=== PATIENT | female | born 1945 | race Caucasian/White ===

== ENCOUNTER 2025-06-01 13:14 | Outpatient (AMB) | payer MEDICARE, SELFPAY ==
--- NOTE | 2025-06-01 13:17 | A.OFFPC_ITS ---
Vital Signs 06/01/25 13:27 Weight 113 lb 6 oz BP 120/60 Blood Pressure Location Rt brachial Position Sitting Respiration 16 Pulse 86 Pulse Source Pulse Oximeter Temp 97.6 F Temp Source Oral Pulse Oximetry (%) 98 Oxygen Delivery Method Room Air Intake Visit Reasons: medication? Intake Note: medication Pharmaceutical Physician Required: No Medication List - Last Reconciled 06/01/25 by Hannah Baldwin MD alprazolam 0.25 mg PO DAILY PRN amitriptyline 25 mg PO BEDTIME amlodipine 5 mg PO DAILY famotidine 20 mg PO BID PRN fluoxetine 20 mg PO DAILY Tobacco use date assessed: 06/01/25 Fall risk assessment: No Falls in past year Last assessed Fall Risk: 06/01/25 Dental Screening Dental Screen Date: 06/01/25 Did you have a dental visit in the last 12 months?: Yes Did you have a dental problem in the last 6 months where you did not have access to dental care?: No Was dental information given to patient?: Patient has dentist HPI HPI Comments History of Present Illness Details The patient is a a 79 year old female with a past medical history of hypertension, LBBB, anxiety, GERD presenting to [facility]. Transferring from [facility] (she was there for a year prior to which she was living in [place]. CV: On amlodipine 5mg daily. Blood pressure is well controlled. Sent for pharmacologic stress test. Will be seeing Dr Kinsey in June. Endocrine: Follows with endocrinology at [facility] for osteoporosis. History of goiter. Sees twice annually GI: History of celiac. History of PUD-duodenal ulcer-[facility]. Can have heartburn and reflux. Says she is not supposed to be on PPI. Famotidine says not super helpful Heme/Onc: Follows with [facility] Dr Bean. History of anorectal cancer. Had chemo & radiation Sees [facility]-h/o cataract-october last year and upcoming November 2025 Tdap 05/31/2025 RSV 05/31/2025 Pnuemonia 03/31/25 Flu & COVID 04/17/2025 Mammo 2024-following with [facility] Colonoscopy- August 2024 ROS see HPI PHYSICAL EXAM: GENERAL: Alert and oriented x 3. NAD EYES: EOMI. Anicteric. HENT: Moist mucous membranes. No scleral icterus. No cervical lymphadenopathy. LUNGS: Clear to auscultation bilaterally. CARDIOVASCULAR: Regular rate and rhythm. No murmur. No JVD. ABDOMEN: Soft, non-tender +bs EXTREMITIES: No edema. Non-tender. SKIN: No rashes or lesions. Warm. NEUROLOGIC: No focal neurological deficits. CN II-XII grossly intact PSYCHIATRIC: Cooperative. Appropriate mood and affect PFSH Family History (Updated 06/01/25 @ 13:26 by Kai Plata MA) Other FH: mental illness Substance abuse Social History (Updated 06/01/25 @ 13:27 by Kai Plata MA) Housing: House Alcohol intake: current Comment: couple of drinks a week Patient Tobacco Use Status: Never used Tobacco e-Cigarette/Vaping Use: Never Used service: No Current occupational status: retired Current occupational exposures/hazards: No Cognitive needs: No Hearing needs: Yes Vision needs: Yes Questionnaire PHQ-9 Over the last 2 weeks, how often have you been bothered by any of the following problems? 1. Little interest or pleasure in doing things: more than half the days 2. Feeling down, depressed, or hopeless: more than half the days 3. Trouble falling or staying asleep, or sleeping too much: several days 4. Feeling tired or having little energy: several days 5. Poor appetite or overeating: several days 6. Feeling bad about yourself - or that you are a failure or have let yourself or your family down: more than half the days 7. Trouble concentrating on things, such as reading the newspaper or watching television: more than half the days 8. Moving or speaking so slowly that other people could have noticed. Or the opposite - being so fidgety or restless that you have been moving around a lot more than usual: more than half the days 9. Thoughts that you would be better off or of hurting yourself in some way: several days Total score: 14 Depression Screening Interpretation: Positive Depression Screening Follow-up: Existing condition and Follow-up Visit Requested Depression Screening Done: Yes 82598 - PHQ-9 Billing: Yes Source: Developed by Drs. Ash Hoyos, Leonila Hernandez, Chris Zayas and colleagues, with an educational christoph from [employer]. Thrive Questionnaire Date Thrive assessed: 05/29/25 I am a: Patient What is your living situation today?: I have a steady place to live Within the past 12 months, did the food you bought not last and you didn't have the money to get more?: Never true Within the past 12 months, did you worry whether your food would run out before you got money to buy more?: Never true Do you have trouble paying for medicines?: No Do you have trouble getting transportation to medical appointments?: No Do you have trouble paying your heating and electricity bill?: No Do you have trouble taking care of your child, family member or friend?: No Do you have trouble with day-to-day activities such as bathing, preparing meals, shopping, managing finances, etc.?: No Are you currently unemployed and looking for a job?: No Are you interested in more education?: Yes Please select the resources that you would like help with: None Currently or been in a relationship where the following occur: No concerns reported THRIVE Score: 0 AUDIT C Alcohol Use Questionnaire (AUDIT-C) 1. How often do you have a drink containing alcohol?: 2-4 times a month 2. How many drinks containing alcohol do you have on a typical day when you are drinking?: 1 or 2 3. How often do you have six or more drinks on one occasion?: Never Total Score: 2 MAXI-7 AMB Questionnaire MAXI-7 Date MAXI - 7 assessed: 06/01/25 Feeling nervous, anxious, or on edge: 2 = More than half the days Not being able to stop or control worryin = More than half the days Worrying too much about different things: 2 = More than half the days Trouble relaxin = More than half the days Being so restless that it is hard to sit still: 2 = More than half the days Becoming easily annoyed or irritable: 1 = Several days Feeling afraid as if something awful might happen: 2 = More than half the days Total MAXI-7 score (0-4 normal; 5-9 mild; 10-14 moderate; 15-21 severe): 13 Source: Developed by Drs. Ash Hoyos, Leonila Hernandez, Chris Zayas and colleagues, with an educational christoph from [employer]. MAXI-7 Assessment Billing MAXI-7 Assessment Tool: MAXI-7 Assessment 40473 Physical exam (Primary Care) Vital Signs: Last Vital Signs Temp 97.6 F 06/01/25 13:27 Pulse 86 06/01/25 13:27 Resp 16 06/01/25 13:27 BP 120/60 06/01/25 13:27 Pulse Ox 98 06/01/25 13:27 Oxygen Delivery Method Room Air 06/01/25 13:27 Tobacco/Smoking Status: Tobacco use Status Tobacco use date assessed 06/01/25 06/01/25 13:30 Patient Tobacco Use Status Never used Tobacco 06/01/25 13:30 e-Cigarette/Vaping Use Never Used 06/01/25 13:30 PHQ-9: PHQ-9 Score PHQ-9: Total score 14 06/01/25 13:49 Depression Screening Interpretation: Positive Depression Screening Follow-up: Existing condition and Follow-up Visit Requested Thrive Assessment: Date of Thrive Assessment Date Thrive assessed 05/29/25 06/01/25 13:19 Currently or been in a relationship where the following occur: No concerns reported Coding Level of Care Code New Pt Level 5 (70905) Diagnoses Moderate episode of recurrent major depressive disorder F33.1 Major depression recurrence: recurrent Active/Remission status: currently active Major depression episode severity: moderate Primary hypertension I10 Hypertension type: primary hypertension History of rectal or anal cancer Z85.048 Osteoporosis, unspecified osteoporosis type, unspecified pathological fracture presence M81.0 Osteoporosis type: unspecified Presence of current pathological fracture: unspecified Additional Codes MAXI-7 Assessment Billing - MAXI-7 Assessment Tool: MAXI-7 Assessment 21313 ([id number]) PHQ-9 - 48608 - PHQ-9 Billing: Yes ([id number]) Time Spent (min) 63 Assessment & Plan Assessment & Plan (1) Major depressive disorder: Code(s): F32.9 - Major depressive disorder, single episode, unspecified Category: Medical Qualifiers: Major depression recurrence: recurrent Active/Remission status: currently active Major depression episode severity: moderate Qualified Code(s): F33.1 - Major depressive disorder, recurrent, moderate (2) Hypertension: Code(s): I10 - Essential (primary) hypertension Category: Medical Qualifiers: Hypertension type: primary hypertension Qualified Code(s): I10 - Essential (primary) hypertension (3) History of rectal or anal cancer: Code(s): Z85.048 - Personal history of other malignant neoplasm of rectum, rectosigmoid junction, and anus Category: Medical (4) Osteoporosis: Code(s): M81.0 - Age-related osteoporosis without current pathological fracture Category: Medical Qualifiers: Osteoporosis type: unspecified Presence of current pathological fracture: unspecified Qualified Code(s): M81.0 - Age-related osteoporosis without current pathological fracture Plan 79 year old female presenting to [facility] care Past medical surgical social reviewed Depression, anxiety-close follow up. She recently increased her prozac HTN-c/w amlodipine. She can trial off if she is monitoring BP at home Orders: Orders Complete Blood Count Auto Diff 06/01/25 E04.9 - Nontoxic goiter, unspecified, F32.9 - Major depressive disorder, single episode, unspecified, F41.9 - Anxiety disorder, unspecified, I10 - Essential (primary) hypertension, I44.7 - Left bundle-branch block, unspecified, J30.2 - Other seasonal allergic rhinitis, M81.0 - Age-related osteoporosis without current pathological fracture, Z65.8 - Other specified problems related to psychosocial circumstances, Z85.048 - Personal history of other malignant neoplasm of rectum, rectosigmoid junction, and anus Comprehensive Met. Panel 06/01/25 E04.9 - Nontoxic goiter, unspecified, F32.9 - Major depressive disorder, single episode, unspecified, F41.9 - Anxiety disorder, unspecified, I10 - Essential (primary) hypertension, I44.7 - Left bundle-branch block, unspecified, J30.2 - Other seasonal allergic rhinitis, M81.0 - Age-related osteoporosis without current pathological fracture, Z65.8 - Other specified problems related to psychosocial circumstances, Z85.048 - Personal history of other malignant neoplasm of rectum, rectosigmoid junction, and anus Hemoglobin A1c 06/01/25 E04.9 - Nontoxic goiter, unspecified, F32.9 - Major depressive disorder, single episode, unspecified, F41.9 - Anxiety disorder, unspecified, I10 - Essential (primary) hypertension, I44.7 - Left bundle-branch block, unspecified, J30.2 - Other seasonal allergic rhinitis, M81.0 - Age- related osteoporosis without current pathological fracture, Z65.8 - Other specified problems related to psychosocial circumstances, Z85.048 - Personal history of other malignant neoplasm of rectum, rectosigmoid junction, and anus SHAE Reflex Titer and Pattern 06/01/25 E04.9 - Nontoxic goiter, unspecified, F32.9 - Major depressive disorder, single episode, unspecified, F41.9 - Anxiety disorder, unspecified, I10 - Essential (primary) hypertension, I44.7 - Left bundle-branch block, unspecified, J30.2 - Other seasonal allergic rhinitis, M 81.0 - Age-related osteoporosis without current pathological fracture, Z65.8 - Other specified problems related to psychosocial circumstances, Z85.048 - Personal history of other malignant neoplasm of rectum, rectosigmoid junction, and anus Lipid Panel 06/01/25 E04.9 - Nontoxic goiter, unspecified, F32.9 - Major depressive disorder, single episode, unspecified, F41.9 - Anxiety disorder, unspecified, I10 - Essential (primary) hypertension, I44.7 - Left bundle-branch block, unspecified, J30.2 - Other seasonal allergic rhinitis, M81.0 - Age- related osteoporosis without current pathological fracture, Z65.8 - Other specified problems related to psychosocial circumstances, Z85.048 - Personal history of other malignant neoplasm of rectum, rectosigmoid junction, and anus TSH reflex Free T4 06/01/25 E04.9 - Nontoxic goiter, unspecified, F32.9 - Major depressive disorder, single episode, unspecified, F41.9 - Anxiety disorder, unspecified, I10 - Essential (primary) hypertension, I44.7 - Left bundle-branch block, unspecified, J30.2 - Other seasonal allergic rhinitis, M81.0 - Age- related osteoporosis without current pathological fracture, Z65.8 - Other specified problems related to psychosocial circumstances, Z85.048 - Personal history of other malignant neoplasm of rectum, rectosigmoid junction, and anus Vitamin B12 and Folate 06/01/25 E04.9 - Nontoxic goiter, unspecified, F32.9 - Major depressive disorder, single episode, unspecified, F41.9 - Anxiety disorder, unspecified, I10 - Essential (primary) hypertension, I44.7 - Left bundle-branch block, unspecified, J30.2 - Other seasonal allergic rhinitis, M81.0 - Age-related osteoporosis without current pathological fracture, Z65.8 - Other specified problems related to psychosocial circumstances, Z85.048 - Personal history of other malignant neoplasm of rectum, rectosigmoid junction, and anus Medications: New melatonin 10 mg PO BEDTIME PRN 90 caps 0RF sleep docusate sodium (Colace) 100 mg PO DAILY cyanocobalamin (vitamin B-12) 5,000 mcg PO DAILY cholecalciferol (vitamin D3) 125 mcg PO .QOD 90 caps 0RF biotin mcg PO
[2025-06-01 13:27] VITALS: BP 120/60; PULSE 86; RESP 16; TEMP 36.4; O2SAT 98
--- OUTSIDE RECORDS SUMMARY | 2025-06-01 15:16 | XMS_ITS | Encounter Summary ---
Author Organization [facility] Address [address] [id number] Care Team Providers Care Child'S Nurse Name Role Phone Joi Yeung MD Primary Care Provider [phone] Chantal Ocasio MD Primary Care Provider Unavailab le Unknown Pcp, Non [facility] Primary Care Provider Unava ilable Fatou Bruner MD Primary Care Provider [phone] Encounter Details Date Type Department Care Team (Late st Contact Info) Description 07/22/2009 Orders Only [facility] [address] [place] [address] Joi Yeung MD [address] [place] [id number] Social History Tobacco Use Types Packs/Day Years Used Date Smoking Tobacco: Former Cigarettes 0.5 12 0 08/09/1962 - 08/09/1974 Comments:quit at age 29 Alcohol Use Standard Drinks/Week Comments Yes 0 (1 standard drink = 0.6 oz pur e alcohol) occasional Comments No Sex and Gender Information Value Date Recorded Sex Assigned at Not on file Legal Sex Female 1:20 AM EDT Gender Identity Not on file Sexual Orientation Not on file 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 Procedure Name Priority Date/Time Associated Diagnosis Comments GAMMA GLUTAMYLTRANSFERASE (GGT), SERUM Routine 07/22/2009 Nonspecific abnormal results of liver function study HEPATIC FUNCTION PANEL Routine 07/22/2009 Hepatitis B infection documented in this encounter Results * Due to [place] the [place] law, this organization might not be sharing negative HIV tests. * HEPATIC FUNCTION PANEL (07/22/2009) Total Protein 6.9 6.2 - 8.3 G/DL [facility] ALBUMIN 4.2 3.2 - 4.6 G/DL [facility] GLOBULIN 2.7 2.2 - 3.9 G/DL [facility] ALBUMIN/GLOBULIN RATIO 1.6 1.0 - 2.1 [facility] BILIRUBIN TOTAL 1.2 0.2 - 1.2 MG/DL [facility] BILIRUBIN DIRECT 0.2 0 - 0.3 MG/DL [facility] ALKALINE PHOSPHATASE 80 33 - 130 U/L [facility] AST (SGOT) 22 10 - 35 U/L [facility] ALT (SGPT) 18 6 - 40 U/L [facility] 07/22/2009 07/22/2009 5:5 2 PM EST us Joi Yeung MD LABORATORY Final Result Performing Organization Address [facility] Co de Phone Number [facility] [address] [place] [address] * (ABNORMAL) GAMMA GLUTAMYLTRANSFERASE (GGT), SERUM (07/22/2009) GGT (GAMMA GLUTAMYL TRANSFERASE) 69(H) 3 - 65 U/L [facility] 07/22/2009 07/22/2009 5:5 2 PM EST us Joi Yeung MD LABORATORY Final Result Performing Organization Address City/[facility] Co de Phone Number [facility] [address] [place] [address] documented in this encounter Visit Diagnoses Diagnosis Nonspecific abnormal results of liver function study Hepatitis B infection Viral hepatitis B without mention of hepatic coma, acute or unspecified, without mention of hepatitis delta documented in this encounter Care Teams Child'S Nurse Relationship Specialty Start Date End Date Joi Yeung MD [address] [place] [address] PCP - General 10/31/05 09/01/11 Chantal Ocasio MD PCP - General 09/02/11 03/20/13 Unknown Pcp, Non [facility] [place] - General 03/21/13 05/13/17 Fatou Bruner MD [facility] [address] [place] [address] PCP - General Family Medicine 06/12/19 documented as of this encounter
--- OUTSIDE RECORDS SUMMARY | 2025-06-01 15:16 | XMS_ITS | Encounter Summary ---
Author Organization [facility] Address [address] [place] [address] Care Team Providers Care Chartered Financial Analyst Name Role Phone Joi Yeung MD Primary Care Provider [phone] Chantal Ocasio MD Primary Care Provider Unavailab le Unknown Pcp, Non [facility]mg Primary Care Provider Unava ilable Fatou Bruner MD Primary Care Provider [phone] Encounter Details Date Type Department Care Team (Late st Contact Info) Description 03/31/2010 Orders Only [facility] [address] [place] [address] Sissy Kenyon MD [address] [place] [address] [id number] Social History Tobacco Use Types Packs/Day Years [...] cindi e documented as of this encounter Progress Notes * Sissy Kenyon MD - 04/02/2010 5:50 AM EDTQuick Note: Ed with Macrobid documented in this encounter Plan of Treatment Not on file documented as of this encounter Procedures * Due to [place] [employer] law, this organization might not be sharing negative HIV tests. Procedure Name Priority Date/Time Associated Diagnosis Comments URINALYSIS, DIP ONLY ( SITE STAT ONLY) STAT (All results called to provider) 03/31/2010 11:55 AM EDT UTI (urinary tract infection) CULTURE, URINE Routine 03/31/2010 UTI (urinary tract infection) documented in this encounter Results * Due to [place] state law, this organization might not be sharing negative HIV tests. * URINALYSIS, DIP ONLY ( SITE STAT ONLY) (03/31/2010 11:55 AM EDT) COLOR (URINE) straw [facility] (CLIA# [id number]) APPEARANCE (URINE) clear [facility] (CLIA# [id number]) SPECIFIC GRAVITY 1.005 1.001 - 1.035 [facility] (CL[facility]# [id number]) PH (URINE) 6.0 5.0 - 8.0 [facility] (CLIA# [id number]) PROTEIN (URINE) negative Neg - Neg [facility] (CLIA# [id number]) GLUCOSE (URINE) negative Neg - Neg [facility] (CL[facility]# [id number]) Ketones (Urine) negative Neg - Neg [facility] (CLIA# [id number]) BILIRUBIN (URINE) negative Neg - Neg [facility] (CLIA# [id number]) BLOOD (URINE) negative Neg - Neg [facility] (CLIA# [id number]) WBC (URINE) negative Neg - Neg [facility] (CLIA# [id number]) NITRITE (URINE) negative Neg - Neg [facility] (CLIA# [id number]) Urine specimen (specimen) 03/31/2010 11:55 AM EDT Impressions [facility] (CLIA# [id number]) - 03/31/2010 11:56 AM EDT Culture already ordered per provider. Sissy Kenyon MD LAB SAME DAY RESULT Final Resul t Performing Organization Address City/[facility]/ZIP Co de Phone Number [facility] (CLIA# [id number]) [address] [place] [address] * (ABNORMAL) CULTURE, URINE (03/31/2010) URINE CULTURE CLEAN VOID SEE TEXT(A) [facility] Comment: SOURCE: URINE 1,000-10,000 CFU/ML GRAM NEGATIVE RODS 03/31/2010 03/31/2010 8:4 2 PM EDT Sissy Kenyon MD LABORATORY Final Result Performing Organization Address City/[facility] de Phone Number [facility] [address] [place] [address] documented in this encounter Visit Diagnoses Diagnosis UTI (urinary tract infection) Urinary tract infection, site not specified documented in this encounter Care Teams Chartered Financial Analyst Relationship Specialty Start Date End Date Joi Yeung MD [address] [place] [address] PCP - General 10/31/05 09/01/11 Chantal Ocasio MD PCP - General 09/02/11 03/20/13 Unknown Pcp, Non [facility] PCP - General 03/21/13 05/13/17 Fatou Bruner MD [address] [place] [address] PCP - General Family Medicine 06/12/19 documented as of this encounter
--- OUTSIDE RECORDS SUMMARY | 2025-06-01 15:16 | XMS_ITS | Encounter Summary ---
Author Organization [facility] Address [address] [place] [address] Phone Care Team Providers Care Account Development Executive Name Role Phone Martha Grissom SYSTEMS TEST TECHNICIAN Primary Care Provider [phone] Rod Forbes MD Unavailable [phone] Bell Gil MOLD TOOLING TECHNICIAN Unavailable Yas Tejeda SYSTEMS TEST TECHNICIAN Unavailable [phone] Srikanth Landa MD Primary Care Provider [phone] Encounter Details Date Type Department Care Team (Late st Contact Info) Description 02/14/2024 Procedure Pass [facility], Ct Scan - [address] [address] Social History Tobacco Use Types Packs/Day Years Used Date Smoking Tobacco: Former Cigarettes Smokeless Tobacco: Never Comments:Age 30 quit Alcohol Use Standard Drinks/Week Comments Yes 1 (1 standard drink = 0.6 oz pur e alcohol) Education Answer Date Recorded Are you interested in more education? Not on cindi e 12/05/2022 Are you concerned about learning? Not on file 12/05/2022 No 12/05/2022 No 12/05/2022 Digital Access Answer Date Recorded No 01/05/2023 No 01/05/2023 Reliable internet access at home? Not on file 01/05/2023 Device with a working camera? Not on file Comments No Sex and Gender Information Value Date Recorded Sex Assigned at Female 06/18/2022 11:18 AM EST Legal Sex Female 8:51 AM EDT Gender Identity Female 06/18/2022 11:18 AM EST Sexual Orientation Straight 06/18/2022 11 :18 AM EST documented as of this encounter Plan of Treatment Upcoming Encounters Date Type Department Care Team (Late st Contact Info) Description 03/05/2025 Procedure Pass [address] [address] 03/05/2025 Procedure Pass [address] [address] 07/24/2025 1:45 PM EST Office Visit [facility] [address] [place] [address] Sarah Bean MD [address] [place] [address], [address] [place] [address] 08/30/2025 2:30 PM EST Appointment [address] [address] Rod Forbes MD [address] [place] [address] 09/06/2025 1:40 PM EST Appointment [facility] [address] [place] [address] Rod Forbes MD [address] [place] [address] 09/06/2025 2:40 PM EST Office Visit [facility] at [address] [address] Rod Forbes MD [address] [place] [address] documented as of this encounter Visit Diagnoses Not on filedocumented in this encounter Care Teams Account Development Executive Relationship Specialty Start Date End Date Martha Grissom NP [address] [place] [address] PCP - General 04/24/22 06/12/24 Srikanth Landa MD [address] [place], [place] [address] PCP - General Family Medicine 06/13/24 Rod Forbes MD [address] [place] [address] [email or web address] Primary Oncologist Medical Oncology 04/24/22 Bell Gil CNP [address] [place] [address] Nurse Practitioner Medical Oncology 05/18/22 Yas Tejeda NP [address] [place] [address] [email or web address] Nurse Practitioner Medical Oncology 07/09/22 02/27/25 documented as of this encounter Additional Source Comments The information contained in this document represents components of the legal health record. It is not the complete legal health record.[facility]
--- OUTSIDE RECORDS SUMMARY | 2025-06-01 15:16 | XMS_ITS | Encounter Summary ---
Author Organization [facility] Address [address] [place] [address] Care Team Providers Care Lathe Turner Name Role Phone Joi Yeung MD Primary Care Provider [phone] Chantal Ocasio MD Primary Care Provider Unavailab le Unknown Pcp, Non [facility] Primary Care Provider Unava ilable Fatou Bruner MD Primary Care Provider [phone] Encounter Details Date Type Department Care Team (Late st Contact Info) Description 09/02/[address] [facility] [address] [place] [address] Joi Yeung MD [address] [place] [address] Social History Tobacco Use Types Packs/Day Years [...] on file Sexual Orientation Not on file documented as of this encounter Plan of Treatment Pending Results Name Type Priority Associated Diagnoses Date /Time EKG (ELECTROCARDIOGRAM ) cardiovascular Routine Arrhythmia 09/02/2007 12:56 PM EST documented as of this encounter Procedures * Due to [place] state law, this organization might not be sharing negative HIV tests. Procedure Name Priority Date/Time Associated Diagnosis Comments EKG-TO BE READ & BILLED BY ADULT OR PEDIATRIC CARDIOLOGY Routine 09/02/2007 12:56 PM EST Arrhythmia documented in this encounter Visit Diagnoses Diagnosis Arrhythmia Cardiac dysrhythmia, unspecified documented in this encounter Care Teams Lathe Turner Relationship Specialty Start Date End Date Joi Yeung MD [address] [place] [address] PCP - General 10/31/05 09/01/11 Chantal Ocasio MD PCP - General 09/02/11 03/20/13 Unknown Pcp, Non [facility] PCP - General 03/21/13 05/13/17 Fatou Bruner MD [address] [address] PCP - General Family Medicine 06/12/19 documented as of this encounter
--- OUTSIDE RECORDS SUMMARY | 2025-06-01 15:16 | XMS_ITS | Encounter Summary ---
Author Organization [facility] Address [address] [place] [id number] Care Team Providers Care Jumpbasting Lining Baster Name Role Phone Joi Yeung MD Primary Care Provider [phone] Chantal Ocasio MD Primary Care Provider Unavailab le Unknown Pcp, Non [facility] Primary Care Provider Unava ilable Fatou Bruner MD Primary Care Provider [phone] Encounter Details Date Type Department Care Team (Late st Contact Info) Description 06/13/2010 Orders Only [facility] [address] [place] [address] Joi Yeung MD [address] [place] [address] Social History Tobacco Use Types Packs/Day Years [...] as of this encounter Progress Notes * Lesia Morgan - 06/16/2010 8:51 AM Shweta Note: . documented in this encounter Plan of Treatment Not on file documented as of this encounter Procedures * Due to [place] state law, this organization might not be sharing negative HIV tests. Procedure Name Priority Date/Time Associated Diagnosis Comments URINALYSIS, DIP ONLY ( SITE STAT ONLY) STAT (All results called to provider) 06/13/2010 12:15 PM EDT Dysuria CULTURE, URINE Routine 06/13/2010 Dysuria URINALYSIS,MICROS COPIC ONLY Routine 06/13/2010 Dysuria documented in this encounter Results * Due to [place] state law, this organization might not be sharing negative HIV tests. * (ABNORMAL) URINALYSIS, DIP ONLY ( SITE STAT ONLY) (06/13/2010 12:15 PM EDT) COLOR (URINE) Brown [facility] (CLIA# [id number]) Comment:Abnormal APPEARANCE (URINE) Cloudy [facility] (CLIA# [id number]) Comment:Abnormal SPECIFIC GRAVITY 1.020 1.001 - 1.035 [facility] (CLIA# [id number]) PH (URINE) 6.5 5.0 - 8.0 [facility] (CLIA# [id number]) PROTEIN (URINE) 3+ Neg - Neg [facility] (CLIA# [id number]) Comment:Abnormal GLUCOSE (URINE) Negative Neg - Neg [facility] (CLIA# [id number]) Ketones (Urine) Negative Neg - Neg [facility] (CLIA# [id number]) BILIRUBIN (URINE) Negative Neg - Neg [facility] (CLIA# [id number]) BLOOD (URINE) 3+ Neg - Neg [facility] (CLIA# [id number]) Comment:Abnormal WBC (URINE) 3+ Neg - Neg [facility] (CLIA# [id number]) Comment:Abnormal NITRITE (URINE) Negative Neg - Neg [facility] (CLIA# [id number]) Urine specimen obtained by clean catch procedure (specimen) 06/13/2010 12:15 PM EDT Narrative [facility] (CLIA# [id number]) - 06/13/2010 12:27 PM EDT Culture already ordered per provider. Micro added. us Joi Yeung MD LAB SAME DAY RESULT Final Res ult Performing Organization Address City/[facility]/ZIP Co de Phone Number [facility] (CLIA# [id number]) [address] [place] [address] * (ABNORMAL) URINALYSIS,MICROSCOPIC ONLY (06/13/2010) WBC (URINE) PACKED(A) 0-4/HPF [facility] RBC (Urine Sed) PACKED(A) 0-3/HPF [facility] EPITHELIAL CELLS.SQUAMOUS (URINE SED) 6-10(A) 0-5/HPF [facility] EPITHELIAL CELLS.TRANSITIO NAL (URINE SED) 0 0-5/HPF [facility] EPITHELIAL CELLS.RENAL (URINE SED) 0 0-3/HPF [facility] BACTERIA (URINE) FEW(A) NONE SEEN [facility] 06/13/2010 06/14/2010 12: 22 AM EDT us Joi Yeung MD LAB SAME DAY RESULT Final Res ult Performing Organization Address City/[facility] Co de Phone Number [facility] [address] [place] [address] * CULTURE, URINE (06/13/2010) URINE CULTURE CLEAN VOID SEE TEXT [facility] Comment: SOURCE: URINE NO GROWTH 06/13/2010 06/14/2010 12: 22 AM EDT us Joi Yeung MD LABORATORY Final Result Performing Organization Address City/[facility] Co de Phone Number [facility] [address] [place] [address] documented in this encounter Visit Diagnoses Diagnosis Dysuria- Primary documented in this encounter Care Teams Jumpbasting Lining Baster Relationship Specialty Start Date End Date Joi Yeung MD [address] [place] [address] PCP - General 10/31/05 09/01/11 Chantal Ocaiso MD PCP - General 09/02/11 03/20/13 Unknown Pcp, Non [facility] PCP - General 03/21/13 05/13/17 Fatou Bruner MD [facility] [address] [place] [address] PCP - General Family Medicine 06/12/19 documented as of this encounter
--- OUTSIDE RECORDS SUMMARY | 2025-06-01 15:16 | XMS_ITS | Encounter Summary ---
Author Organization [facility] Address [address] [place] [id number] Care Team Providers Care Textbook Associate Name Role Phone Joi Yeung MD Primary Care Provider [phone] Chantal Ocasio MD Primary Care Provider Unavailab le Unknown Pcp, Non [facility] Primary Care Provider Unava ilable Fatou Bruner MD Primary Care Provider [phone] Encounter Details Date Type Department Care Team (Late st Contact Info) Description 09/10/2007 Orders Only [facility] [address] [place] [address] Joi Yeung MD [address] [place] [address] Social History Tobacco Use Types Packs/Day Years [...] this encounter Procedures * Due to [place] state law, this organization might not be sharing negative HIV tests. Procedure Name Priority Date/Time Associated Diagnosis Comments BASIC METABOLIC PANEL Routine 09/10/2007 PVC (Premature Ventricular Contraction) PHOSPHORUS Routine 09/10/2007 PVC (Premature Ventricular Contraction) MAGNESIUM Routine 09/10/2007 PVC (Premature Ventricular Contraction) documented in this encounter Results * Due to [place] state law, this organization might not be sharing negative HIV tests. * PHOSPHORUS (09/10/2007) PHOSPHATE 3.2 2.5 - 4.5 MG/DL [facility] (CLIA# [id number]) 09/10/2007 09/10/2007 11: 53 PM EST Joi Yeung MD LABORATORY Final Result Performing Organization Address [facility] de Phone Number [facility] (CLIA# [id number]) [address] [place] [address] * MAGNESIUM (09/10/2007) MAGNESIUM 2.0 1.5 - 2.5 MG/DL [facility] (CLIA# [id number]) 09/10/2007 09/10/2007 11: 53 PM EST Joi Yeung MD LABORATORY Final Result Performing Organization Address [facility] de Phone Number [facility] (CLIA# [id number]) [address] [place] [address] * BASIC METABOLIC PANEL (09/10/2007) CALCIUM 10.1 8.6 - 10.2 MG/DL [facility] (CLIA# [id number]) BUN 15 7 - 25 MG/DL [facility] (CLIA# [id number]) CREATININE 0.85 0.50-1.30/ 1.20 MG/DL [facility] (CLIA# [id number]) BUN/Creatinine Ratio 18 6 - 25 [facility] (CLIA# [id number]) Glucose 85 65 - 99 MG/DL [facility] (CLIA# [id number]) SODIUM 140 135 - 146 MMOL/L [facility] (CLIA# [id number]) POTASSIUM 4.4 3.5 - 5.3 MMOL/L [facility] (CLIA# [id number]) CHLORIDE 104 98 - 110 MMOL/L [facility] (CLIA# [id number]) CARBON DIOXIDE 24 21 - 33 MMOL/L [facility] (CLIA# [id number]) 09/10/2007 09/10/2007 11: 53 PM EST Joi Yeung MD LAB SAME DAY RESULT Final Res ult [facility] (CLIA# [id number]) [address] [place] [address] documented in this encounter Visit Diagnoses Diagnosis PVC (premature ventricular contraction) Other premature beats documented in this encounter Care Teams Textbook Associate Relationship Specialty Start Date End Date Joi Yeung MD [address] [place] [address] PCP - General 10/31/05 09/01/11 Chantal Ocasio MD PCP - General 09/02/11 03/20/13 Unknown Pcp, Non [facility] PCP - General 03/21/13 05/13/17 Fatou Bruner MD [facility] [address] [place] [address] PCP - General Family Medicine 06/12/19 documented as of this encounter
--- OUTSIDE RECORDS SUMMARY | 2025-06-01 15:16 | XMS_ITS | Encounter Summary ---
Author Organization [facility] Address [address] [place] [address] Phone Care Team Providers Care Flat Lock Operator Name Role Phone Rod Forbes MD Unavailable [phone] Bell Gil CNP Unavailable Srikanth Landa MD Primary Care Provider [phone] Reason for Referral * MRI/CAT Scan - New Request Specialty Diagnoses / Procedures Referred By Contac t Referred To Contact Radiology Diagnoses Left bundle branch block Procedures NC Myocardial Perfusion Pharmacologic Stress Multiple NC Myocardial Perfusion Exercise Multiple Ranulfo Rios MD [address] [facility] [address] [place] [address] Phone: tel: fax: Referral ID Status Reason Start Date Expiration Date V isits Requested Visits Authorized [id number] New Request 04/11/2025 1 1 Encounter Details Date Type Department Care Team (Late st Contact Info) Description 04/27/2025 Ancillary Orders [facility] [address], [address] [place] [address] Ranulfo Rios MD [address] [facility] [address] [place] [address] Left bundle branch block (Primary Dx) Social History Tobacco Use Types Packs/Day Years Used Date Smoking Tobacco: Former Cigarettes Q uit: 1976 Smokeless Tobacco: Never Comments:Age 30 quit Alcohol Use Standard Drinks/Week Comments Yes 1 (1 standard drink = 0.6 oz pur e alcohol) 1-2 per week Education Answer Date Recorded Are you interested in more education? Not on cindi e 12/05/2022 Are you concerned about learning? Not on file 12/05/2022 No 12/05/2022 No 12/05/2022 Digital Access Answer Date Recorded No 01/05/2023 No 01/05/2023 Reliable internet access at home? Not on file 01/05/2023 Device with a working camera? Not on file Intimate Partner Violence Answer Date R ecorded Are you denied basic needs s uch as food, clothing, or medical care? No 09/18/2024 In the past 12 months have y ou been in a relationship with a person who hurts, threatens, or tries to control you? No 09/18/2024 Are you denied basic needs s uch as food, clothing, or medical care? No 09/18/2024 In the past 12 months have y ou been in a relationship with a person who hurts, threatens, or tries to control you? No 09/18/2024 Comments No Sex and Gender Information Value Date Recorded Sex Assigned at Female 06/18/2022 11:18 AM EST Legal Sex Female 8:51 AM EDT Gender Identity Female 06/18/2022 11:18 AM EST Sexual Orientation Straight 06/18/2022 11 :18 AM EST documented as of this encounter Plan of Treatment Upcoming Encounters Date Type Department Care Team (Late st Contact Info) Description 03/05/2025 Procedure Pass [address] [address] 03/05/2025 Procedure Pass [address] [address] 07/24/2025 1:45 PM EST Office Visit [facility] [address] [place] [address] Sarah Bean MD [address] [facility], 2nd [place] [address] [email or web address] 08/30/2025 2:30 PM EST Appointment [facility], Ct Scan - [facility] [address] [place] [address] Rod Forbes MD [address] [place] [address] [email or web address] 09/06/2025 1:40 PM EST Appointment [facility] [address] [place] [address] Rod Forbes MD [address] [place] [address] [phone] [email or web address] 09/06/2025 2:40 PM EST Office Visit [facility] at [address] [address] Rod Forbes MD [address] [place] [address] [phone] [email or web address] documented as of this encounter Results * NC Myocardial Perfusion Pharmacologic Stress Multiple (04/27/2025 2:00 PM EDT) [facility] Max Predicted Heart Rate 141 bpm Stress/rest perfusion ratio 0.93 Nuc Stress EF 55 % SNMDIAVOL 97.0 mL SNMSYSVOL 44.0 mL Nuc Rest EF 53 % RNMDIAVOL 97.0 mL RNMSYSVOL 46.0 mL Anatomical Region Laterality Modality Heart, Vascular Ultrasound Narrative 04/30/2025 8:32 AM EDT Abnormal study There is a large in size moderate intensity fixed defect involving the mid distal anterior wall anteroseptal wall and apex. 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 There is some Sab diaphragmatic activity which may be taking counts from this area but I do believe it is real. Small chance this is artifact from count stealing. There is no evidence of significant ischemia. Interestingly the EF is preserved which makes me think there could be some artifact. Recommend clinical correlation. ECG STRESS REPORT: SITTING REGADENOSON STUDY BMI: 21.25 The Nuclear Stress Test was performed as a pharmacologic study due to left bundle branch block (LBBB) which is a contraindication to perform an exercise nuclear stress test. Norah Anaya received 0.4 mg of Regadenoson while sitting on a chair. Regadenoson was given IV push over 10 seconds as per protocol by Елена Santana (AIMEE), immediately followed by injection of Tc99m Sestamibi by Skyler Schulz, the licensed nuclear control room operator. 1. EKG: Baseline EKG showed sinus rhythm with left bundle branch block and isolated PVCs. Following administration of Regadenoson EKG portion of test nondiagnostic due to left bundle branch block. 2. SYMPTOMS: Patient reported shortness of breath after the administration of regadenoson. Shortness of breath subsided after the administration of 75mg of aminophylline. 3. PHYSIOLOGY: Resting HR was 73 bpm. After Regadenoson injection, HR 93 bpm. Blood pressure: 132/84 at rest, 140/74 following administration of Regadenoson, and 132/84 on discharge from stress lab. 4. ARRHYTHMIAS: Occasional isolated PVCs. Occasional isolated PACs. Conclusion: ECG portion of nuclear stress test nondiagnostic due to left bundle branch block. Patient reported shortness of breath after the administration of regadenoson. Nuclear images pending and will be reported separately. See attached stress report for full details. Елена Santana NP NUCLEAR REPORT: TYPE OF STUDY: Myocardial Perfusion Imaging after a Sitting Regadenoson protocol with gated SPECT. PROTOCOL USED: One day Regadenoson rest-stress protocol in the supine and prone position. Images were obtained in gated tomographic technique. Images were processed in SPECT format, reconstructed tomographically and compared [id number] in short axis, horizontal long axis and vertical long axis. DOSE: Technetium 99m Sestamibi 7.0 mCi injected intravenously in the right arm antecubital vein at rest on 04/27/2025 with post injection scan time of 60 minutes. Technetium 99m Sestamibi 21.8 mCi injected intravenously in the right arm antecubital vein after Regadenoson infusion on 04/27/2025 with post injection scan time of 40 minutes. Overall image quality is good but bowel attenuation is present in the inferior wall. No motion artifact is present. Stress Function Defect Left ventricular global function is normal during stress. Stress ejection fraction is 55%. The stress end diastolic cavity size is normal. Stress end diastolic size: 97.0 mL. The stress end systolic cavity size is normal. Stress end systolic size: 44.0 mL. Rest Function Defect Left ventricular global function is normal at rest. Resting ejection fraction was 53%. The rest end diastolic cavity size is normal. Rest end diastolic size: 97.0 ml. The rest end systolic cavity size is normal. Rest end systolic size: 46.0 mL. Nuclear Prior Study There is no prior study available for comparison. Nuclear Ancillary Finding There is no evidence of transient ischemic dilation (TID). The TID ratio is 0.93, which is normal. Perfusion Scoring Resting Summed Score: 19 Percent Normal: 27.94% Severe count reduction in the following segments: apical anterior, apical septal, apical lateral and apex. Moderate count reduction in the following segments: mid anteroseptal and mid inferolateral. Mild count reduction in the following segments: mid inferoseptal, mid anterolateral and apical inferior. All other segments are normal. SUPINE IMAGING REST Perfusion Scoring Stress Summed Score: 13 Percent Normal: 19.12% Severe count reduction in the following segments: apical septal. Moderate count reduction in the following segments: mid anteroseptal, mid inferolateral, apical anterior, apical lateral and apex. All other segments are normal. PRONE IMAGING STRESS Perfusion Scores: SRS Score: 19 Percentage Abnormal: 27.94% Perfusion Scores: SSS Score: 13 Percentage Abnormal: 19.12% Perfusion Scores: SDS Score: N/A Percentage Abnormal: N/A Procedure Note Jovany Bro MD - 04/30/2025 Abnormal study There is a large in size moderate intensity fixed defect involving the middistal anterior wall anteroseptal wall and apex. 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 There is some Sabdiaphragmatic activity which may be taking counts from this area but I dobelieve it is real. Small chance this is artifact from count stealing. There is no evidence of significant ischemia. Interestingly the EF is preserved which makes me think there could be someartifact. Recommend clinical correlation. us Ranulfo Rios MD CV NM CARDIAC Final Re sult documented in this encounter Visit Diagnoses Diagnosis Left bundle branch block- Primary Other left bundle branch block Left bundle branch block- Primary Other left bundle branch block documented in this encounter Care Teams Flat Lock Operator Relationship Specialty Start Date End Date Srikanth Landa MD [address]) [place] [address] PCP - General Family Medicine 06/13/24 Rod Forbes MD [address] [place] [address] Primary Oncologist Medical Oncology 04/24/22 Bell Gil CNP [address] [place] [address] Nurse Practitioner Medical Oncology 05/18/22 documented as of this encounter Additional Source Comments The information contained in this document represents components of the legal health record. It is not the complete legal health record.[facility]
--- OUTSIDE RECORDS SUMMARY | 2025-06-01 15:16 | XMS_ITS | Encounter Summary ---
Author Organization [facility] Address [address] [place] [id number] Care Team Providers Care Scalemaker Name Role Phone Joi Yeung MD Primary Care Provider [phone] Chantal Ocasio MD Primary Care Provider Unavailab le Unknown Pcp, Non [facility] Primary Care Provider Unava ilable Fatou Bruner MD Primary Care Provider Encounter Details Date Type Department Care Team (Late st Contact Info) Description 05/02/2009 Orders Only [facility] [address] [place] [address] Joi Yeung MD [address] [place] [address] Social History Tobacco Use Types Packs/Day Years [...] of this encounter Procedures * Due to [place] state law, this organization might not be sharing negative HIV tests. Procedure Name Priority Date/Time Associated Diagnosis Comments GAMMA GLUTAMYLTRANSFERASE (GGT), SERUM Routine 05/02/2009 Abdominal Pain documented in this encounter Results * Due to [facility] law, this organization might not be sharing negative HIV tests. * (ABNORMAL) GAMMA GLUTAMYLTRANSFERASE (GGT), SERUM (05/02/2009) GGT (GAMMA GLUTAMYL TRANSFERASE) 148(H) 3 - 65 U/L [facility] 05/02/2009 05/02/2009 7:0 6 PM EDT Joi Yeung MD LABORATORY Final Result Performing Organization Address City/State/[facility] Co de Phone Number [facility] [address] [place] [address] documented in this encounter Visit Diagnoses Diagnosis Abdominal pain Abdominal pain, unspecified site documented in this encounter Care Teams Scalemaker Relationship Specialty Start Date End Date Joi Yeung MD [address] [place] [address] PCP - General 10/31/05 09/01/11 Chantal Ocasio MD PCP - General 09/02/11 03/20/13 Unknown Pcp, Non [facility] PCP - General 03/21/13 05/13/17 Fatou Bruner MD [address] [address] PCP - General Family Medicine 06/12/19 documented as of this encounter
--- OUTSIDE RECORDS SUMMARY | 2025-06-01 15:16 | XMS_ITS | Encounter Summary ---
Author Organization [facility] Address [address] [id number] Care Team Providers Care Manager Control Name Role Phone Joi Yeung MD Primary Care Provider [phone] Chantal Ocasio MD Primary Care Provider Unavailab le Unknown Pcp, Non Rmg Primary Care Provider Unava ilable Fatou Bruner MD Primary Care Provider [phone] Encounter Details Date Type Department Care Team (Late st Contact Info) Description 05/16/2009 Orders Only [facility] [address] [place] [address] Joi Yeung MD [address] [place] [address] Social History Tobacco Use Types Packs/Day Years [...] Diagnosis Comments GAMMA GLUTAMYLTRANSFERASE (GGT), SERUM Routine 05/16/2009 Nonspecific Abnormal Results of Liver Function Study HEPATIC FUNCTION PANEL Routine 05/16/2009 Nonspecific Abnormal Results of Liver Function Study documented in this encounter Results * Due to [place] [employer] law, this organization might not be sharing negative HIV tests. * HEPATIC FUNCTION PANEL (05/16/2009) Total Protein 6.8 6.2 - 8.3 G/DL [facility] ALBUMIN 4.3 3.2 - 4.6 G/DL [facility] GLOBULIN 2.5 2.2 - 3.9 G/DL [facility] ALBUMIN/GLOBULIN RATIO 1.7 1.0 - 2.1 [facility] BILIRUBIN TOTAL 0.9 0.2 - 1.2 MG/DL [facility] BILIRUBIN DIRECT 0.2 0 - 0.3 MG/DL [facility] ALKALINE PHOSPHATASE 104 33 - 130 U/L [facility] AST (SGOT) 23 10 - 35 U/L [facility] ALT (SGPT) 21 6 - 40 U/L [facility] 05/16/2009 05/16/2009 6:0 0 PM EDT Result Jesus Alberto Yeung MD LABORATORY Final Result Performing Organization Address [facility] de Phone Number [facility] [address] [place] [address] * (ABNORMAL) GAMMA GLUTAMYLTRANSFERASE (GGT), SERUM (05/16/2009) GGT (GAMMA GLUTAMYL TRANSFERASE) 109(H) 3 - 65 U/L [facility] 05/16/2009 05/16/2009 6:0 0 PM EDT us Joi Yeung MD LABORATORY Final Result Performing Organization Address [facility] Co de Phone Number [facility] [address] [place] [address] documented in this encounter Visit Diagnoses Diagnosis Nonspecific abnormal results of liver function study documented in this encounter Care Teams Manager Control Relationship Specialty Start Date End Date Joi Yeung MD [address] [place] [address] PCP - General 10/31/05 09/01/11 Chantal Ocasio MD PCP - General 09/02/11 03/20/13 Unknown Pcp, Non Rmg PCP - General 03/21/13 05/13/17 Fatou Bruner MD [address] [address] PCP - General Family Medicine 06/12/19 documented as of this encounter
--- OUTSIDE RECORDS SUMMARY | 2025-06-01 15:16 | XMS_ITS | Encounter Summary ---
Author Organization [facility] Address [address] [place] [address] Care Team Providers Care Commanding Officer Motorized Squad Name Role Phone Jonnie Clark MD Primary Care Provider Unavailab le Unknown Pcp, Non Rmg Primary Care Provider Unava ilable Fatou Bruner MD Primary Care Provider [phone] Reason for Visit * Reason Onset Date Comments Refill Request 03/14/2012 Encounter Details Date Type Department Care Team (Late st Contact Info) Description 03/14/2012 Refill [facility] [address] [place] [phone] Jonnie Clark MD Refill Request Social History Tobacco Use Types Packs/Day Years Used Date Smoking Tobacco: Former Cigarettes 0.5 12 0 08/09/1962 - 08/09/1974 Smokeless Tobacco: Never Comments:quit at age 29 Alcohol Use Standard [...] cindi e documented as of this encounter Miscellaneous Notes * Telephone Encounter - Gabby Gant - 03/14/2012 12:59 PM EDT Yes 42 is the right count when getting thru [facility] program. * Telephone Encounter - Rachelle Clemons MD - 03/14/2012 12:08 PM EDT Just checking. Is #42 the correct amount? Should it be #30? Thanks. * Telephone Encounter - Amelia Khan - 03/14/2012 11:17 AM EDT Patient, Norah Aguiar Cawrse 66 y.o. female calling with request to renew medication(s). Any special requests or concerns?- none When do you need the medication for?- within 48 hours Last CPE with this specialty: 06/16/2011 Last OV with this specialty: 06/16/2011 Next OV: Future Appointments Date Time Provider Department Center 05/02/2012 10:00 AM [id number] MAMMOGRAPHY ROOM2 [facility] 06/24/2012 9:30 AM 1582[facility] Significant lab results: No labs suggested for any medication orders signed or pended in this encounter. Refresh if any orders changed. Allergies: Erythromycin, Refresh p.m. and Bactrim Confirmed pharmacy for patient. Pended medication order(s) and sent to provider. Patient expects medication renewal unless notifiedby this office. BP Readings from Last 1 Encounters: 06/16/11 112/62 Patient Active Problem List Diagnoses Date Noted ??? FH: colon polyps [V18.51E] 10/08/20112011 colon comp, pt needs 5 yr f/u due 2016 ??? Routine general medical examination at a health care facility [V70.0AP] 03/12/2011 Colonoscopy 2011 normal. Repeat in 5 yrs d/t FH polyps. ??? Anxiety [300.00E] 04/17/200806/19 Stable-uses alprazolam rarely on as needed basis. ??? Psoriasis [696.1U] 08/26/200506/19 Stable, mild psoriasis, no active lesions ??? Irritable Bowel Syndrome [564.1] 08/26/2005 Tends to have loose stools, previous workup negative.last colonoscopy 2004 was normal, advised 5 year followup colonoscopy in view of family history of polyps. 06/19 Stable, colonoscopy referral sent. ??? GASTROESOPHAGEAL REFLUX DISEASE [530.81] 08/26/200506/19 Stable, takes prilosec with relief. ??? 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 She tries to follow glutein free diet more so now since her mother and her sister have also been diagnosed to have celiac disease 06/19 Stable ??? Hepatitis B infection [070.30AJ] 08/26/200506/19 Stable- In the past, has cleared antigen. ??? Osteoporosis [733.00C] 08/26/2005 Continue supplemental calcium and vitamin D. Stopped fosamax In 2006 after taking it for 2 years, does not want to restart. 06/19 Stable, continues with calcium, vitamin D level normal. ??? ELEVATED TRANSAMINASE/LDH [790.4N] 08/26/2005 In June 2004. Workup of elevated transaminases was negative, continue to monitor periodically Current outpatient prescriptions ordered prior to encounter Medication Sig Dispense Refill ??? Omeprazole ([facility] OMEPRAZOLE) 20 MG Tablet Delayed Response * 42 UNITS = 42 DAY SUPPLY * 42 4 ??? ALPRAZolam 0.25 MG Tab * 60 UNITS = 30 DAY SUPPLY * 60 4 ??? PEG-ELECTROLYTE SOLN (PEG-3350/ELECTROLYTES) 236 GM Recon Soln * 4000 UNITS = 1 DAY SUPPLY * 4000 ??? Tetanus-Diphtheria Toxoids Td 2-2 LF/0.5ML Suspension * 30 UNITS = 30 DAY SUPPLY * 30 ??? ALPRAZolam 0.25 MG OR TABS 1 TABLET 2TIMES DAILY NEEDED 60 Tab 5 ??? ALPRAZolam 0.25 MG OR TABS * 60 UNITS = 30 DAY SUPPLY * 60 5 ??? Omeprazole ([facility] OMEPRAZOLE) 20 MG OR TBEC TAKE 1 TABLET DAILY 42 Tab 6 ??? Meclizine HCl 25 MG OR TABS 1 TABLET 3 TIMES DAILY NEEDED ??? ASPIRIN 81 MG OR TABS 1 TABLET DAILY EVERY OTHER DAY ??? CALCIUM + D 600-200 MG-UNIT OR TABS 2 TABLET DAILY ??? MELATONIN 500-20-50 MCG-MG-MG OR TABS 1/2 TABLET DAILY documented in this encounter Plan of Treatment Not on file documented as of this encounter Visit Diagnoses Not on filedocumented in this encounter Care Teams Commanding Officer Motorized Squad Relationship Specialty Start Date End Date Jonnie Clark MD PCP - General 09/02/11 03/20/13 Unknown Pcp, Non g PCP - General 03/21/13 05/13/17 Fatou Bruner MD [facility] [address] [place] [address] PCP - General Family Medicine 06/12/19 documented as of this encounter
--- OUTSIDE RECORDS SUMMARY | 2025-06-01 15:16 | XMS_ITS | Encounter Summary ---
Author Organization [facility] Address [address] [place] [address] Care Team Providers Care Filteration Operator Name Role Phone Joi Yeung MD Primary Care Provider [phone] Chantal Ocasio MD Primary Care Provider Unavailab le Unknown Pcp, Non Rmg Primary Care Provider Unava ilFatou Rico MD Primary Care Provider Encounter Details Date Type Department Care Team (Late st Contact Info) Description 10/07/2008 Orders Only [facility] [address] [place] [phone] Sam White MD [facility] [address] [address] Social History Tobacco Use Types Packs/Day Years [...] of this encounter Procedures * Due to [facility] law, this organization might not be sharing negative HIV tests. Procedure Name Priority Date/Time Associated Diagnosis Comments MICROSCOPIC URINE STAT (All results called to provider) 10/07/2008 CULTURE, URINE Routine 10/07/2008 UTI (Urinary Tract Infection) URINALYSIS, DIPSTICK WITH REFLEX MICROSCOPIC STAT (All results called to provider) 10/07/2008 UTI (Urinary Tract Infection) documented in this encounter Results * Due to [place] [employer] law, this organization might not be sharing negative HIV tests. * (ABNORMAL) MICROSCOPIC URINE (10/07/2008) WBC (URINE) > 60(A) 0-4/HPF RBC (Urine Sed) > 60(A) 0-3/HPF EPITHELIAL CELLS.SQUAMOUS (URINE SED) 0 0-5/HPF EPITHELIAL CELLS.TRANSITIO NAL (URINE SED) 0 0-5/HPF EPITHELIAL CELLS.RENAL (URINE SED) 0 0-3/HPF BACTERIA (URINE) MANY(A) NONE SEEN 10/07/2008 10/07/2008 11: 56 AM EST Narrative 10/07/2008 12:07 PM EST Report Comments: PLEASE FAX RESULTS TO [facility], THANK-YOU Sam White MD LABORATORY Final Resul t * CULTURE, URINE (10/07/2008) URINE CULTURE CLEAN VOID SEE TEXT Comment: SOURCE: URINE NO GROWTH 10/07/2008 10/07/2008 11: 56 AM EST Narrative 10/09/2008 8:19 AM EST Report Comments: PLEASE FAX RESULTS TO [facility], THANK-YOU us Sam White MD LABORATORY Final Resul t * (ABNORMAL) URINALYSIS, DIPSTICK WITH REFLEX MICROSCOPIC (10/07/2008) COLOR (URINE) BROWN(A) YELLOW APPEARANCE (URINE) CLOUDY(A) CLEAR SPECIFIC GRAVITY 1.015 1.001 - 1.035 PH (URINE) 8.0 5.0 - 8.0 PROTEIN (URINE) 2+(A) NEG GLUCOSE (URINE) NEG NEG Ketones (Urine) NEG NEG BILIRUBIN (URINE) NEG NEG BLOOD (URINE) 3+(A) NEG WBC (URINE) 2+(A) NEG NITRITE (URINE) NEG NEG 10/07/2008 10/07/2008 11: 56 AM EST Narrative 10/07/2008 12:07 PM EST Report Comments: PLEASE FAX RESULTS TO [facility], THANK-YOU us Sam White MD LAB SAME DAY RESULT Final R esult documented in this encounter Visit Diagnoses Diagnosis UTI (urinary tract infection) Urinary tract infection, site not specified documented in this encounter Care Teams Filteration Operator Relationship Specialty Start Date End Date Joi Yeung MD [address] [place] [address] PCP - General 10/31/05 09/01/11 Chantal Ocasio MD PCP - General 09/02/11 03/20/13 Unknown Pcp, Non Rmg PCP - General 03/21/13 05/13/17 Fatou Bruner MD [address] [address] PCP - General Family Medicine 06/12/19 documented as of this encounter
--- OUTSIDE RECORDS SUMMARY | 2025-06-01 15:16 | XMS_ITS | Encounter Summary ---
Author Organization [facility] Address [address] [id number] Care Team Providers Care Faculty Neuropsychologist Name Role Phone Joi Yeung MD Primary Care Provider [phone] Chantal Ocasio MD Primary Care Provider Unavailab le Unknown Pcp, Non Rmg Primary Care Provider Unava ilable Fatou Bruner MD Primary Care Provider [phone] Encounter Details Date Type Department Care Team (Late st Contact Info) Description 08/22/2009 Orders Only [facility] [address] [place] [address] Joi Yeung MD [address] [place] [phone] Social History Tobacco Use Types Packs/Day Years [...] of this encounter Procedures * Due to [place] state law, this organization might not be sharing negative HIV tests. Procedure Name Priority Date/Time Associated Diagnosis Comments URINALYSIS, DIP ONLY ( SITE STAT ONLY) STAT (All results called to provider) 08/22/2009 10:04 AM EST UTI (urinary tract infection) CULTURE, URINE Routine 08/22/2009 UTI (urinary tract infection) URINALYSIS,MICROS COPIC ONLY Routine 08/22/2009 UTI (urinary tract infection) documented in this encounter Results * Due to [place] [employer] law, this organization might not be sharing negative HIV tests. * (ABNORMAL) URINALYSIS, DIP ONLY ( SITE STAT ONLY) (08/22/2009 10:04 AM EST) COLOR (URINE) straw [facility] (CLIA# [id number]) APPEARANCE (URINE) clear [facility] (CLIA# [id number]) SPECIFIC GRAVITY 1.010 1.001 - 1.035 [facility] (CLIA# [id number]) PH (URINE) 6.0 5.0 - 8.0 [facility] (CLIA# [id number]) PROTEIN (URINE) negative Neg - Neg [facility] (CLIA# [id number]) GLUCOSE (URINE) negative Neg - Neg [facility] (CLIA# [id number]) Ketones (Urine) negative Neg - Neg [facility] (CLIA# [id number]) BILIRUBIN (URINE) negative Neg - Neg [facility] (CLIA# [id number]) BLOOD (URINE) 2+(A) Neg - Neg [facility] (CLIA# [id number]) WBC (URINE) trace(A) Neg - Neg [facility] (CLIA# [id number]) NITRITE (URINE) negative Neg - Neg [facility] (CLIA# [id number]) Urine specimen (specimen) 08/22/2009 10:04 AM EST Impressions [facility] (CLIA# [id number]) - 08/22/2009 10:05 AM EST Micro added. Culture already ordered per provider. Joi Yeung MD LAB SAME DAY RESULT Final Res ult Performing Organization Address City/[facility]/ZIP Co de Phone Number [facility] (CLIA# [id number]) [address] [place] [address] * (ABNORMAL) URINALYSIS,MICROSCOPIC ONLY (08/22/2009) WBC (URINE) 20-40(A) 0-4/HPF [facility] RBC (Urine Sed) 6-10(A) 0-3/HPF [facility] EPITHELIAL CELLS.SQUAMOUS (URINE SED) 0-5 0-5/HPF [facility] EPITHELIAL CELLS.TRANSITIO NAL (URINE SED) 0 0-5/HPF [facility] EPITHELIAL CELLS.RENAL (URINE SED) 0 0-3/HPF [facility] BACTERIA (URINE) NONE SEEN NONE SEEN [facility] 08/22/2009 08/22/2009 8:3 7 PM EST Joi Yeung MD LAB SAME DAY RESULT Final Res ult Performing Organization Address City/[facility]/ZIP Co de Phone Number [facility] [address] [place] [address] * (ABNORMAL) CULTURE, URINE (08/22/2009) URINE CULTURE CLEAN VOID SEE TEXT(A) [facility] Comment: SOURCE: URINE (#1) 10,000-50,000 CFU/ML E COLI SUSCEPTIBILITIES #1 AMPICILLIN <8 S AMPICILLIN/SUL <8 S AUGMENTIN <8 S CEFAZOLIN <8 S CEFEPIME <4 S CEFOTAXIME <2 S CEFTRIAXONE <8 S CEFUROXIME 8 S CIPROFLOXACIN <1 S ERTAPENEM <2 S GENTAMICIN <4 S LEVOFLOXACIN <2 S NITROFURANTOIN <32 S PIPERACILLIN/TA <16 S TIMENTIN <16 S TOBRAMYCIN <4 S TRIMETH/SULFA <2 S 08/22/2009 08/22/2009 8:3 7 PM EST us Andal Sadagopan MD LABORATORY Final Result [facility] [address] [place] [address] documented in this encounter Visit Diagnoses Diagnosis UTI (urinary tract infection)- Primary Urinary tract infection, site not specified documented in this encounter Care Teams Faculty Neuropsychologist Relationship Specialty Start Date End Date Joi Yeung MD [address] [place] [address] PCP - General 10/31/05 09/01/11 Chantal Ocasio MD PCP - General 09/02/11 03/20/13 Unknown Pcp, Non Rmg PCP - General 03/21/13 05/13/17 Fatou Bruner MD [address] [address] PCP - General Family Medicine 06/12/19 documented as of this encounter
--- OUTSIDE RECORDS SUMMARY | 2025-06-01 15:16 | XMS_ITS | Encounter Summary ---
Author Organization [facility] Address [address] [phone] Care Team Providers Care Crm Functional Analyst Name Role Phone Chantal Ocasio MD Primary Care Provider Unavailab le Unknown Pcp, Non Rmg Primary Care Provider Unava ilable Fatou Bruner MD Primary Care Provider [phone] Encounter Details Date Type Department Care Team (Late st Contact Info) Description 06/17/2012 [facility] Only [address] [phone] Chantal Ocasio MD Social History Tobacco Use Types Packs/Day Years [...] as of this encounter Progress Notes * Rachelle Clemons MD - 07/02/2012 4:33 PM Shweta Note: Reviewed by Dr. Ocasio at appt. * Chantal Ocasio - 06/21/2012 12:25 PM ESTQuick Note: Labs essentially normal. CPE 06/24/12. * Joann Chandler - 06/20/2012 3:03 PM ESTQuick Note: . * Joann Chandler - 06/20/2012 7:09 AM ESTQuick Note: . documented in this encounter Plan of Treatment Not on file documented as of this encounter Procedures * Due to [place] [employer] law, this organization might not be sharing negative HIV tests. Procedure Name Priority Date/Time Associated Diagnosis Comments CBC INCLUDES DIFFERENTIAL AND PLATELET COUNT Routine 06/17/2012 8:39 AM EST Screening for deficiency anemia VITAMIN D, 25-HYDROXY, TOTAL, IMMUNOASSAY Routine 06/17/2012 8:39 AM EST Screening for endorine/nutritiona l/metabolic disease LIPID PANEL WITH REFLEX TO DIRECT LDL Routine 06/17/2012 8:39 AM EST Lipid screening BASIC METABOLIC PANEL WITH (GFR) Routine 06/17/2012 8:39 AM EST Routine history and physical examination of adult documented in this encounter Results * Due to [place] [employer] law, this organization might not be sharing negative HIV tests. * VITAMIN D, 25-HYDROXY, LC/MS/MS (06/17/2012 8:39 AM EST) Vitamin D, 25-OH, Total 34 30 - 100 ng/mL [facility] Comment:{VITAMIN D, 25 OH, T OTAL {[id number]) Vitamin D, D3 (Cholecalciferol ) 34 ng/mL [facility] Comment:{VITAMIN D, 25 OH, D 3 {[id number]) Vitamin D, 25-OH, D2 (Calciferol) <4 ng/mL [facility] Comment: {VITAMIN D, 25 OH, D2 {[id number]) 25-OHD3 indicates both endogenous production and supplementation. 25-OHD2 is an indicator of exogenous sources such as diet or supplementation. Therapy is based on measurement of Total 25-OHD, with levels <20 ng/mL indicative of Vitamin D deficiency, while levels between 20 ng/mL and 30 ng/mL suggest insufficiency. Optimal levels are > or = 30 ng/mL. 06/17/2012 8:39 AM EST 06/17/2012 1:10 PM EST Narrative Resulting Agency Comment [id number] Chantal Ocasio MD LABORATORY Final Result [facility] [address] [place] [address] * BASIC METABOLIC PANEL WITH (GFR) (06/17/2012 8:39 AM EST) Glucose 87 65 - 99 mg/dL [facility] Comment: {GLUCOSE {[id number]) Fasting reference interval Urea Nitrogen Blood (BUN) 22 7 - 25 mg/dL [facility] Comment:{UREA NITROGEN (BUN) {[id number]) Creatinine 0.80 0.50 - 0.99 mg/dL [facility] Comment: {CREATININE {[id number]) For patients >49 years of age, the reference limit for Creatinine is approximately 13% higher for people identified as -[place]. GFR 77 > OR = 60 mL/min/1 .73m2 [facility] Comment:{eGFR NON-AFR. AMERI CAN {[id number]) GFR () 89 > OR = 60 mL/min/1 .73m2 [facility] Comment:{eGFR AMERIC AN {[id number]) BUN/Creatinine Ratio NOT APPLICABLE 6 - 22 (calc) [facility] Comment:{BUN/CREATININE RATI O {[id number]) Sodium 139 135 - 146 mmol/L [facility] Comment:{SODIUM {[id number]) Potassium 4.7 3.5 - 5.3 mmol/L [facility] Comment:{POTASSIUM {[id number]) Chloride 105 98 - 110 mmol/L [facility] Comment:{CHLORIDE {[id number]) Carbon dioxide 26 21 - 33 mmol/L [facility] Comment:{CARBON DIOXIDE {[id number]) Calcium 9.8 8.6 - 10.4 mg/dL [facility] Comment:{CALCIUM {[id number]) 06/17/2012 8:39 AM EST 06/17/2012 1:10 PM EST Narrative [facility] - 06/17/2012 2:21 PM EST Please note that this estimated GFR does not include an adjustment for the patient's height or weight, and can therefore, be viewed as reliable only for patients with heights between 60 and 72 . More precise quantification using a 24-hour urine sample or height-based algorithm is recommended for patients outside of this range of height and for those individuals with more precise needs for GFR calculation. Resulting Agency Comment [id number] Chantal Ocasio MD LABORATORY Final Result [facility] [address] [place] [address] * (ABNORMAL) LIPID PANEL WITH REFLEX TO DIRECT LDL (06/17/2012 8:39 AM EST) Cholesterol 205(H) 125 - 200 mg/dL [facility] Comment:{CHOLESTEROL, TOTAL {[id number]) HDL Cholesterol 91 > OR = 46 mg/dL [facility] Comment:{HDL CHOLESTEROL {[id number]) Triglyceride 54 <150 mg/dL [facility] Comment:{TRIGLYCERIDES {[id number]) LDL Cholesterol 103 <130 mg/dL (calc) [facility] Comment: {LDL-CHOLESTEROL {[id number]) Desirable range <100 mg/dL for patients with CHD or diabetes and <70 mg/dL for diabetic patients with known heart disease. CHOL/HDL Ratio 2.3 < OR = 5.0 (calc) [facility] Comment:{CHOL/HDLC RATIO {[id number]) Cholesterol Non-HDL 114 mg/dL (calc) [facility] Comment: {NON HDL CHOLESTEROL {[id number]) Target for non-HDL cholesterol is 30 mg/dL higher than LDL cholesterol target. 06/17/2012 8:39 AM EST 06/17/2012 1:10 PM EST Narrative Resulting Agency Comment [id number] Chantal Ocasio MD LABORATORY Final Result [facility] [address] [place] [address] * (ABNORMAL) CBC INCLUDES DIFFERENTIAL AND PLATELET COUNT (06/17/2012 8:39 AM EST) WBC 4.3 3.8 - 10.8 Thousand/u L [facility] Comment:{WHITE BLOOD CELL CO UNT {[id number]) RBC 4.34 3.80 - 5.10 Million/uL [facility] Comment:{RED BLOOD CELL COUN T {[id number]) Hemoglobin 13.8 11.7 - 15.5 g/dL [facility] Comment:{HEMOGLOBIN {[id number]) Hematocrit 41.3 35.0 - 45.0 % [facility] Comment:{HEMATOCRIT {[id number]) MCV 95.1 80.0 - 100.0 fL [facility] Comment:{MCV {[id number]) MCH 31.9 27.0 - 33.0 pg [facility] Comment:{MCH {[id number]) MCHC 33.5 32.0 - 36.0 g/dL [facility] Comment:{MCHC {[id number]) RDW 13.3 11.0 - 15.0 % [facility] Comment:{RDW {[id number]) PLT 199 140 - 400 Thousand/u L [facility] Comment:{PLATELET COUNT {[id number]) MPV 7.2(L) 7.5 - 11.5 fL [facility] Comment:{MPV {[id number]) Neutrophils # 2167 1500 - 7800 cells/uL [facility] Comment:{ABSOLUTE NEUTROPHIL S {[id number]) Lymphocytes # 1518 850 - 3900 cells/uL [facility] Comment:{ABSOLUTE LYMPHOCYTE S {[id number]) Monocytes # 503 200 - 950 cells/uL [facility] Comment:{ABSOLUTE MONOCYTES {[id number]) Eosinophils # 82 15 - 500 cells/uL [facility] Comment:{ABSOLUTE EOSINOPHIL S {[id number]) Basophils # 30 0 - 200 cells/uL [facility] Comment:{ABSOLUTE BASOPHILS {[id number]) Neutrophils % 50.4 % [facility] Comment:{NEUTROPHILS {[id number]) Lymphocytes % 35.3 % [facility] Comment:{LYMPHOCYTES {[id number]) Monocytes % 11.7 % [facility] Comment:{MONOCYTES {[id number]) Eosinophils % 1.9 % [facility] Comment:{EOSINOPHILS {[id number]) Basophils % 0.7 % [facility] Comment:{BASOPHILS {[id number]) 06/17/2012 8:39 AM EST 06/17/2012 1:10 PM EST Narrative Resulting Agency Comment [id number] us Chantal Ocasio MD LAB SAME DAY RESULT Final Result [facility] [address] [place] [address] documented in this encounter Visit Diagnoses Diagnosis Screening for deficiency anemia Screening for other and unspecified deficiency anemia Lipid screening Screening for lipoid disorders Routine history and physical examination of adult Routine general medical examination at a health care facility Screening for endorine/nutritional/metabolic disease Screening for other and unspecified endocrine, nutritional, metabolic, and immunity disorders documented in this encounter Care Teams Crm Functional Analyst Relationship Specialty Start Date End Date Chantal Ocasio MD PCP - General 09/02/11 03/20/13 Unknown Pcp, Non Rmg PCP - General 03/21/13 05/13/17 Fatou Bruner MD [facility] [address] [facility] [address] PCP - General Family Medicine 06/12/19 documented as of this encounter
--- OUTSIDE RECORDS SUMMARY | 2025-06-01 15:16 | XMS_ITS | Encounter Summary ---
Author Organization [facility] Address [address] [id number] Care Team Providers Care Professional Bondsman Name Role Phone Chantal Ocasio MD Primary Care Provider Unavailab le Unknown Pcp, Non Rmg Primary Care Provider Unava ilable Fatou Bruner MD Primary Care Provider [phone] Encounter Details Date Type Department Care Team (Late st Contact Info) Description 11/09/2012 Orders Only [facility] [address] [place] [address] Nico Hong MD Social History Tobacco Use Types Packs/Day [...] of this encounter Procedures * Due to [place] state law, this organization might not be sharing negative HIV tests. Procedure Name Priority Date/Time Associated Diagnosis Comments ALANINE AMINOTRANSFERASE (ALT), SERUM Routine 11/09/2012 9:34 AM EDT Osteoporosis ASPARTATE AMINOTRANSFERASE (AST), SERUM Routine 11/09/2012 9:34 AM EDT Osteoporosis THYROID CASCADING REFLEX Routine 013 9:34 AM EDT Osteoporosis PROTEIN, TOTAL AND PROTEIN ELECTROPHORESIS (SPEP) W/ REFLEX LUÍS, SERUM Routine 11/09/2012 9:34 AM EDT Osteoporosis ALKALINE PHOSPHATASE Routine 11/09/2012 9:34 AM EDT Osteoporosis CELIAC DISEASE COMPREHENSIVE PANEL Routine 11/09/2012 9:34 AM EDT Celiac disease documented in this encounter Results * Due to [place] state law, this organization might not be sharing negative HIV tests. * CELIAC DISEASE COMPREHENSIVE PANEL (11/09/2012 9:34 AM EDT) (TTG) AB, IGA <1 U/mL [facility] Comment: {TISSUE TRANSGLUTAMINASE AB, IGA {[id number]) Value Interpretation ----- <4 No Antibody Detected > or = 4 Antibody Detected IgA 203 81 - 463 mg/dL [facility] Comment:{IMMUNOGLOBULIN A {[id number]) 11/09/2012 9:34 AM EDT 11/09/2012 6:32 PM EDT Narrative Resulting Agency Comment [id number] Nico Hong MD LABORATORY Final Result [facility] [address] [place] [address] * ALKALINE PHOSPHATASE (11/09/2012 9:34 AM EDT) Alkaline phosphatase 68 33 - 130 U/L [facility] Comment:{ALKALINE PHOSPHATAS E {[id number]) 11/09/2012 9:34 AM EDT 11/09/2012 6:32 PM EDT Narrative Resulting Agency Comment [id number] us Nico Hong MD LAB SAME DAY RESULT Final Result Performing Organization Address [facility] Co de Phone Number [facility] [address] [place] [address] * THYROID CASCADING REFLEX (11/09/2012 9:34 AM EDT) TSH 0.85 0.40 - 4.50 mIU/L [facility] Comment:{TSH {[id number]) INTERPRETATION SEE NOTE [facility] Comment: {INTERPRETATION {[id number]) TSH within normal range. Consistent with euthyroid patient. Interference from heterophilic antibodies (more common) or autoantibody (less common) should be considered when the TSH value does not fit the clinical picture. TSH with HAMA Treatment (test code 68135) or TSH Antibody (test code 94216) may help identify such interferences. 11/09/2012 9:34 AM EDT 11/09/2012 6:32 PM EDT Narrative Resulting Agency Comment [id number] Nico Hong MD LABORATORY Final Result Performing Organization Address [facility] Co de Phone Number [facility] [address] [place] [address] * PROTEIN, TOTAL AND PROTEIN ELECTROPHORESIS (SPEP) W/ REFLEX LUÍS, SERUM (11/09/2012 9:34 AM EDT) Pathologist [facility] Protein Total (Serum) 6.5 6.1 - 8.1 g/dL [facility] Comment:{PROTEIN, TOTAL {[id number]) Albumin 3.9 3.5 - 4.7 g/dL [facility] Comment:{ALBUMIN {[id number]) Alpha 1 globulin 0.2 0.1 - 0.3 g/dL [facility] Comment:{[id number] { [id number]) Alpha 2 globulin 0.6 0.5 - 1.0 g/dL [facility] Comment:{[id number] { [id number]) Beta globulin 0.9 0.8 - 1.4 g/dL [facility] Comment:{BETA GLOBULINS {[id number]) Gamma globulin 0.9 0.6 - 1.6 g/dL [facility] Comment:{GAMMA GLOBULINS {[id number]) Protein pattern SEE NOTE [facility] Comment: {INTERPRETATION {[id number]) Normal Pattern 11/09/2012 9:34 AM EDT 11/09/2012 6:32 PM EDT Narrative Resulting Agency Comment [id number] us Nico Hong MD LABORATORY Final Result Performing Organization Address [facility] de Phone Number [facility] [address] [place] [address] * ASPARTATE AMINOTRANSFERASE (AST), SERUM (11/09/2012 9:34 AM EDT) AST (SGOT) 24 10 - 35 U/L [facility] Comment:{AST {[id number]) 11/09/2012 9:34 AM EDT 11/09/2012 6:32 PM EDT Narrative Resulting Agency Comment [id number] Nico Hong MD LAB SAME DAY RESULT Final Result Performing Organization Address [facility] de Phone Number [facility] [address] [place] [address] * ALANINE AMINOTRANSFERASE (ALT), SERUM (11/09/2012 9:34 AM EDT) ALT (SGPT) 19 6 - 40 U/L [facility] Comment:{ALT {[id number]) 11/09/2012 9:34 AM EDT 11/09/2012 6:32 PM EDT Narrative Resulting Agency Comment [id number] us Nico Hong MD LAB SAME DAY RESULT Final Result Performing Organization Address [facility] de Phone Number [facility] [address] [place] [address] documented in this encounter Visit Diagnoses Diagnosis Osteoporosis Osteoporosis, unspecified Celiac disease (HHS) Celiac disease documented in this encounter Care Teams Professional Bondsman Relationship Specialty Start Date End Date Chantal Ocasio MD PCP - General 09/02/11 03/20/13 Unknown Pcp, Non Rmg PCP - General 03/21/13 05/13/17 Fatou Bruner MD [facility] [address] [facility] [place] [address] PCP - General Family Medicine 06/12/19 documented as of this encounter
--- OUTSIDE RECORDS SUMMARY | 2025-06-01 15:16 | XMS_ITS | Encounter Summary ---
Author Organization [facility] Address [address] [place] [address] Phone Care Team Providers Care Bag Maker Name Role Phone Martha Grissom COMMUNITY LEADER Primary Care Provider [phone] Rod Forbes MD Unavailable [phone] Bell Gil COMMUNITY EDUCATION SPECIALIST Unavailable Yas Tejeda COMMUNITY LEADER Unavailable [phone] Srikanth Landa MD Primary Care Provider [phone] Encounter Details Date Type Department Care Team (Late st Contact Info) Description 02/14/2024 Procedure Pass [facility], Ct Scan - [address] [address] Social History Tobacco Use Types Packs/Day Years [...] st Contact Info) Description 03/05/2025 Procedure Pass [address] [address] 03/05/2025 Procedure Pass [address] [address] 07/24/2025 1:45 PM EST Office Visit [facility] [address] [place] [address] Sarah Bean MD [address] [place] [address], [address] [place] [address] 08/30/2025 2:30 PM EST Appointment [address] [address] Rod Forbes MD [address] [place] [address] [email or web address] 09/06/2025 1:40 PM EST Appointment [facility] [address] [place] [address] Rod Forbes MD [address] [place] [address] 09/06/2025 2:40 PM EST Office Visit [facility] at [address] [address] Rod Forbes MD [address] [place] [address] documented as of this encounter Visit Diagnoses Not on filedocumented in this encounter Care Teams Bag Maker Relationship Specialty Start Date End Date Martha Grissom NP [address] [place] [address] PCP - General 04/24/22 06/12/24 Srikanth Landa MD [address] [place], [place] [address] PCP - General Family Medicine 06/13/24 Rod Forbes MD [address] [place] [address] [email or web address] Primary Oncologist Medical Oncology 04/24/22 Bell Gil CNP [address] [place] [address] Nurse Practitioner Medical Oncology 05/18/22 Yas Tejeda NP [address] [place] [address] [email or web address] Nurse Practitioner Medical Oncology 07/09/22 02/27/25 documented as of this encounter Additional Source Comments The information contained in this document represents components of the legal health record. It is not the complete legal health record.[facility]
--- OUTSIDE RECORDS SUMMARY | 2025-06-01 15:16 | XMS_ITS | Clinical Summary ---
Author Organization [facility] Address [address] [address] Phone Care Team Providers Care Cash Register Servicer Name Role Phone Rod Forbes MD Unavailable [phone] LouiseTroybandar HOLT Unavailable Srikanth Landa MD Primary Care Provider [phone] Allergies Active Allergy Reactions Criticality Noted Date Comments Ketorolac 09/13/2024 Swelling around eyes Erythromycin Erythema Multiforme 05/05/2022 Sulfa (Sulfonamide Antibiotics) 05/05/2022 Medications cholecalciferol (VITAMIN D3) 5,000 unit tablet Take by mouth every other day. Active denosumab (PROLIA) 60 mg/mL Syrg subcutaneous syringe Inject 60 mg under the skin every 6 (six) months. Active triamcinolone acetonide 0.1 % cream Apply topically as needed. Active biotin 1 mg tablet Take 10,000 mcg by mouth daily. Active diphenoxylate-atr opine (LOMOTIL) 2.5-0.025 mg per tabletIndications :Diarrhea Take 1 tablet by mouth 4 (four) times a day as needed for diarrhea. 60 tablet 2 Active ALPRAZolam (XANAX) 0.25 MG tabletIndications :Anal cancer Take 0.25 mg by mouth nightly at bedtime as needed for anxiety. Take 1/2 tablet by mouth as needed Active GAS RELIEF, SIMETHICONE, 80 mg chewable tablet 3 Active melatonin 5 mg Tab Take 10 mg by mouth nightly at bedtime. Active docusate sodium (COLACE) 100 MG capsule Take 1 capsule (100 mg total) by mouth 2 (two) times a day. 4 Active amLODIPine (NORVASC) 2.5 MG tablet Take 10 mg by mouth. 4 Active amitriptyline (ELAVIL) 25 MG tablet take 1 tablet by mouth everyday at bedtime Active famotidine (PEPCID) 10 MG tablet Take 10 mg by mouth 2 (two) times a day as needed. 4 Active cyanocobalamin, vitamin B-12, 2,[address] 5,000 mcg under the tongue daily. Active Active Problems Patient Care Coordination No te Formatting of this note migh t be different from the original. Height 152.4 no shoes 03/05/25 DO NOT SEND ANYTHING WITH [facility] IDENTIFIER ON IT Pt will get off-site labs drawn at [facility] Problem Noted Date Diagnosed Date Other constipation 10/15/2023 Assessment & Plan (10/15/2023 5:49 PM EST): In the absence of any prolapse, I do not think is any pessary that would improve the constipation. Also as the introitus is not at all widened, it would be extremely painful difficult to insert a pessary even if it were warranted She is taking stool softener and Metamucil; Metamucil sometimes makes her stool more bulky, so I suggested she ask Dr. Bean if it would be good to switch from Metamucil to lactulose Uterine leiomyoma 10/15/2023 Overview (10/15/2023): Incidental finding on a CT scan done in [place]. Radiologist noted calcified leiomyoma and some increased vascularity or blood vessels noted, however did not raise any suspicion or concern about the nature Uterus is not enlarged on exam, I do not see any need for any intervention further at this time. 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/13/2022:Stage IIA(cT2, cN0, cM0) - Signed by Rod Forbes MD on 05/13/2022 Hypertensive disorder Encounters Date Type Department Care Team Description 05/04/2025 Telephone [facility] [address], [address] [place] [address] Елена Santana, LULI 04/27/2025 12:19 PM EDT - 04/27/2025 11:59 PM EDT Hospital Encounter Non-Invasive Cardiology [address] [place] [address] Ranulfo Rios MD Discharge Disposition: Home or Self Care 04/27/2025 Ancillary Orders [facility] [address], [address] [place] [address] Ranulfo Rios MD Left bundle branch block (Primary Dx) 04/11/2025 Transcribe Orders [facility] [address], [address] [place] [address] Ranulfo Rios MD Left bundle branch block (Primary Dx) 03/05/2025 2:40 PM EDT Office Visit [facility] [address] [place] [address] Rod Forbes MD Anal cancer (Primary Dx) 03/05/2025 1:20 PM EDT - 03/05/2025 11:59 PM EDT Hospital Encounter [facility] [address] [place] [address] Rod Forbes MD Discharge Disposition: Home or Self Care from Last 3 Months Immunizations Immunization Administration Dates Next Due COVID-19 (Pre-05/31) Moderna Vaccine, mRNA, PF 01/20/2022,06/12/2021,11/04/2020,10/07 COVID-19 (Pre-05/31) Pfizer Vaccine, Bivalent 12+ 06/05/2022 INFLUENZA, SPLIT VIRUS, TRIV ALENT W/ PRESERVATIVE IM 06/05/2022,07/24/2021,05/30/2020,06/20,06/14/2017,06/30/2016 Influenza High-Dose Trivalen t Preservative Free IM 05/19/2024 Influenza Quadrivalent Prese rvative Free IM 06/05/2022,07/24/2021,05/30/2020,06/20,06/14/2017,06/30/2016 Pneumococcal conjugate PCV13 09/25/2015 Pneumococcal polysaccharide PPSV23 11/21/2018, Td (adult),2 Lf Tetanus Toxo id, PF, Adsorbed 09/02/2011,08/09/1999,03/02/1991 Tdap 12/17/2015 Zoster live 10/28/2015 Zoster recombinant 03/08/2019,12/12/2018 Family History Relation Status Comments Grandson Social History Tobacco Use Types Packs/Day Years Used Date Smoking Tobacco: Former Cigarettes Q uit: 1976 Smokeless Tobacco: Never Tobacco Cessation:Counseling Given: Not Answered Comments:Age 30 quit Alcohol Use Standard Drinks/Week [...] ecorded Are you denied basic needs [facility] as food, clothing, or medical care? No 09/18/2024 In the past 12 months have y ou been in a relationship with a person who hurts, threatens, or tries to control you? No 09/18/2024 Are you denied basic needs [facility] as food, clothing, or medical care? No [...] Orientation Straight 06/18/2022 11 :18 AM EST Last Filed Vital Signs Vital Sign Reading Time Taken Comments Blood Pressure 132/84 04/27/2025 1:54 PM EDT Pulse 91 03/05/2025 1:57 PM EDT Temperature 36.2 C (97.1 F) 09/18/2024 11:45 AM EST Respiratory Rate 16 09/18/2024 11:5 9 AM EST Oxygen Saturation 98% 04/27/2025 1:00 PM EDT Inhaled Oxygen Concentration - - Weight 49.4 kg (108 lb 12.8 oz) 03/05/2025 1:57 PM EDT Height 152.4 cm (5') 03/05/2025 1:57 PM EDT Body Mass Index 21.25 03/05/2025 1:57 PM EDT Plan of Treatment Upcoming Encounters Date Type Department Care Team (Late st Contact Info) Description 03/05/2025 Procedure Pass [address] [address] 03/05/[address] [address] 07/24/2025 1:45 PM EST Office Visit [facility] [address] [place] [address] Sarah Bean MD [address] [place] [address], [address] [place] [address] 08/30/2025 2:30 PM EST Appointment [address] [address] Rod Forbes MD [address] [place] [address] 09/06/2025 1:40 PM EST Appointment [facility] Laboratory [address] [place] [address] Rod Forbes MD [address] [place] [address] 09/06/2025 2:40 PM EST Office Visit [facility] [address] [place] [address] Rod Forbes MD [address] [place] [address] [email or web address] Health Maintenance Due Date Last Done Comments LIPID PANEL 1945 DEPRESSION SCREENING 1957 HEPATITIS C SCREENING 1963 OSTEOPOROSIS SCREENING INITIAL (ONE-TIME) 2010 RSV VACCINE (1 - 1-dose 75+ series) 2020 INFLUENZA VACCINE (#1) 2025 , 06/05/2022, 06/05/2022, Additional history exists COVID-19 VACCINE ( season) 2025 05/19/2024, 06/05/2022, 01/20/2022, Additional history exists BLOOD PRESSURE 09/05/2025 03/05/2025 Adult Td,Tdap Booster 12/16/2025 12/17/2015 , 09/02/2011, 08/09/1999, Additional history exists SMOKING Hx and SMOKELESS TOBACCO SCREENING 03/05/2026 03/05/2025 PNEUMOCOCCAL VACCINES (50+ years) Completed 11/21/2018, 09/25/2015, 06/24/2012 ZOSTER VACCINES Completed 03/08/2019, 0501/2019, 10/28/2015 HEPATITIS A VACCINES Aged Out No long er eligible based on patient's age to complete this topic HIB VACCINES Aged Out No longer eligi ble based on patient's age to complete this topic MENINGOCOCCAL VACCINES (ACWY) Aged Out No longer eligible based on patient's age to complete this topic MENINGOCOCCAL VACCINES (B) Aged Out N o longer eligible based on patient's age to complete this topic Medical Devices Not on file Procedures Procedure Name Priority Date/Time Associated Diagnosis Comments NC MYOCARDIAL PERFUSION PHARMACOLOGIC STRESS MULTIPLE Routine 04/27/2025 2:00 PM EDT Left bundle branch block COMPREHENSIVE METABOLIC PANEL Routine 03/05/2025 1:20 PM EDT Anal cancer CBC AND DIFFERENTIAL Routine 03/05/2025 1:20 PM EDT Anal cancer from Last 3 Months Results * NC Myocardial Perfusion Pharmacologic Stress Multiple (04/27/2025 2:00 PM EDT) Max Predicted Heart Rate 141 bpm Stress/rest [...] of Tc99m Sestamibi by Skyler Schulz, the nuclear medicine tech. 1. EKG: Baseline EKG showed sinus rhythm [...] attached stress report for full details. Елена Max, ASSOCIATE PROFESSOR OF ARCHAEOLOGY NUCLEAR REPORT: TYPE OF STUDY: Myocardial Perfusion Imaging after a Sitting Regadenoson protocol with gated SPECT. PROTOCOL USED: One day Regadenoson rest-stress protocol in the supine and prone position. Images were obtained in gated tomographic technique. Images were processed in SPECT format, reconstructed tomographically and compared [id number] in short axis, horizontal long axis and [...] MD CV NM CARDIAC Final Re sult * (ABNORMAL) Comprehensive metabolic panel (03/05/2025 1:20 PM EDT) SODIUM 140 133 - 146 mmol/L [facility] POTASSIUM 4.4 3.3 - 5.1 mmol/L [facility] CHLORIDE 106 96 - 108 mmol/L [facility] CO2 25 21 - 35 mmol/L [facility] BUN 20(H) 6 - 19 mg/dL [facility] CREATININE 1.20 0.5 - 1.5 mg/dL [facility] GLUCOSE 101(H) 70 - 99 mg/dL [facility] ALBUMIN 4.0 3.9 - 4.8 g/dL [facility] TOTAL PROTEIN 6.7 6.5 - 8.0 g/dL [facility] CALCIUM 9.8 8.4 - 10.3 mg/dL [facility] ALKALINE PHOSPHATASE 59 39 - 117 U/L [facility] TOTAL BILIRUBIN 0.6 0.0 - 1.2 mg/dL [facility] AST 21 0 - 37 U/L [facility] ALT 12 0 - 40 U/L [facility] GLOBULIN 2.7 1 - 4.8 g/dL [facility] EGFR 46(L) >59 mL/min/1.7 3m2 [facility] Comment:Estimated glomerular filtration rate calculated using the CKD-EPI refit equation. ANION GAP 13 10 - 20 mmol/L [facility] Blood 03/05/2025 1:20 PM EDT 03/05/2025 1:30 PM EDT us Rod Forbes MD LAB BLOOD ORDERABLES Final Res ult Performing Organization Address City/State/[facility] Co de Phone Number [address] [address] * (ABNORMAL) CBC and differential (03/05/2025 1:20 PM EDT) WBC 4.89 4.00 - 11.00 K/uL [facility] RBC 3.69(L) 4.00 - 5.20 M/uL [facility] HGB 11.6(L) 12.0 - 16.0 g/dL [facility] HCT 35.2(L) 36.0 - 46.0 % [facility] PLT 216 150 - 450 K/uL [facility] MCV 95.4 80.0 - 100.0 fL [facility] MCH 31.4(H) 27.0 - 31.0 pg [facility] MCHC 33.0 32.0 - 36.0 g/dL [facility] RDW 13.4 11.5 - 14.5 % [facility] MPV 8.4 8.4 - 12.0 fL [facility] NRBC 0.00 0.00 /100 WBCs [facility] ABSOLUTE NRBC 0.00 0.00 K/uL [facility] DIFF METHOD Auto [facility] NEUTS 64.7 48.0 - 76.0 % [facility] LYMPHS 19.2 18.0 - 41.0 % [facility] MONOS 12.9(H) 4.0 - 11.0 % [facility] EOS 1.8 0.0 - 5.0 % [facility] BASOS 1.0 0.0 - 1.5 % [facility] Granulocytes, immature (%) 0.4 0.0 - 0.9 % [facility] ABSOLUTE NEUTS 3.16 1.92 - 7.60 K/uL [facility] ABSOLUTE LYMPHS 0.94 0.72 - 4.10 K/uL [facility] ABSOLUTE MONOS 0.63 0.16 - 1.10 K/uL [facility] ABSOLUTE EOS 0.09 0.00 - 0.50 K/uL [facility] ABSOLUTE BASOS 0.05 0.00 - 0.15 K/uL [facility] Granulocytes, immature 0.02 0.00 - 0.09 K/uL [facility] Blood 03/05/2025 1:20 PM EDT 03/05/2025 1:30 PM EDT us Rod Forbes MD LAB BLOOD ORDERABLES Final Res ult Performing Organization Address City/State/[facility] Co de Phone Number [facility] [address] [place] [address] from Last 3 Months Insurance MEDICARE PART A & B [facility] MEDICARE SUPPLEMENT * Guarantor: Norah Anaya Account Type Relation to Patient Date of Phone Billing Address Personal/Family Self [address] [place] [address] MEDICARE PART A & B [facility] [employer] MEDICARE SUPPLEMENT MEDICARE PART A & B [facility] MEDICARE SUPPLEMENT MEDICARE PART A & B [facility] [employer] MEDICARE SUPPLEMENT MEDICARE PART A & B [employer] MEDICARE SUPPLEMENT MEDICARE PART A & B [employer] MEDICARE SUPPLEMENT * Guarantor: Norah Anaya Account Type Relation to Patient Date of Phone Billing Address Personal/Family Self [address] [place] [address] MEDICARE PART A & B [employer] MEDICARE SUPPLEMENT MEDICARE PART A & B [employer] MEDICARE SUPPLEMENT MEDICARE PART A & B [facility] [employer] MEDICARE SUPPLEMENT Advance Directives For more information, please contact: [phone] (9AM - 5PM [facility], Wednesday-Wednesday) * Full Code (Latest Code Status on File) Date Activated Date Inactivated Comments 11/08/2023 9:38 AM Question Answer Comments Code Status Confirmed With: Patient Care Teams Cash Register Servicer Relationship Specialty Start Date End Date Srikanth Landa MD [address] [place] [address] PCP - General Family Medicine 06/13/24 Rod Forbes MD [address] [place] [address] [email or web address] Primary Oncologist Medical Oncology 04/24/22 Bell Gil CNP [address] [place] [address] [email or web address] Nurse Practitioner Medical Oncology 05/18/22 Additional Source Comments The information contained in this document represents components of the legal health record. It is not the complete legal health record.[facility]
--- OUTSIDE RECORDS SUMMARY | 2025-06-01 15:16 | XMS_ITS ---
Author Organization [facility] Address [address] [place] [address] Phone Care Team Providers Care Gardening Manager Name Role Phone Rod Forbes MD Unavailable [phone] Bell Gil JONATHON Unavailable Srikanth Landa MD Primary Care Provider [phone] Active Problems Patient Care Coordination No te Formatting of this note migh t be different from the original. Height 152.4 no shoes 03/05/25 DO NOT SEND ANYTHING WITH [facility] IDENTIFIER ON IT Pt will get off-site labs drawn at [facility] Problem Noted Date Diagnosed Date Other constipation [...] finding on a CT scan done in [place]. Radiologist noted calcified leiomyoma and some increased [...] Rod Forbes MD on 05/13/2022 Hypertensive disorder Current Treatment and Therapy Plans No current plan information found. Past Treatment and Therapy Plans Oncology Therapy Plan Plan Name Start Date Discontinue Date Treatment Medications Discontinue Reason Plan Provider HYDRATION & SUPPORTIVE CARE 06/29/2022 08/05/2022 No medications scheduled. a. Therapy Complete Bell Gil CNP TREATMENT PLAN Plan Name Start Date Discontinue Date Treatment Medications Discontinue Reason Plan Provider Cycles CAPECITA BINE/GASTON OMYCIN 12 MG/M2 2 07/13/2022 capecitabine (XELODA)mitoMYci n (MUTAMYCIN) c. Not Tolerated Rod Forbes MD 1 of 1 cycle started
--- OUTSIDE RECORDS SUMMARY | 2025-06-01 15:16 | XMS_ITS | Encounter Summary ---
Author Organization [facility] Address [address] [place] [address] Care Team Providers Care Hebrew Cantor Name Role Phone Fatou Bruner MD Primary Care Provider [phone] Encounter Details Date Type Department Care Team (Late st Contact Info) Description 07/27/2019 Orders Only [facility]. Rheumatology [address] [place] [phone] Nico Hong MD Medications Social History Tobacco Use Types Packs/Day Years [...] on filedocumented in this encounter Care Teams Hebrew Cantor Relationship Specialty Start Date End Date Fatou Bruner MD [facility] [address] [place], [place] [address] PCP - General Family Medicine 06/12/19 documented as of this encounter
--- OUTSIDE RECORDS SUMMARY | 2025-06-01 15:16 | XMS_ITS | Encounter Summary ---
Author Organization [facility] Address [address] [facility] [address] [place] [address] Phone Care Team Providers Care Home Maker Name Role Phone Rod Forbes MD Unavailable [phone] Bell Gil WIND UP WORKER Unavailable Yas Tejeda TRAFFIC SERGEANT Unavailable [phone] Srikanth Landa MD Primary Care Provider [phone] Encounter Details Date Type Department Care Team (Late st Contact Info) Description 09/18/2024 Procedure Pass [facility] Endoscopy Admitting Dept Virtual Department [address] [place] [address] [phone] Social History Tobacco Use Types Packs/Day Years [...] st Contact Info) Description 03/05/2025 Procedure Pass [address] [address] 03/05/[address] [address] 07/24/2025 1:45 PM EST Office Visit [facility] General Surgical Care [address] [place] [address] Sarah Bean MD [address] [place] [address], [address] [place] [address] 08/30/2025 2:30 PM EST Appointment [address] [address] Rod Forbes MD [address] [place] [address] 09/06/2025 1:40 PM EST Appointment [facility] [address] [place] [address] Rod Forbes MD [address] [place] [address] 09/06/2025 2:40 PM EST Office Visit [facility] [address] [place] [address] Rod Forbes MD [address] [place] [address] documented as of this encounter Visit Diagnoses Not on filedocumented in this encounter Care Teams Home Maker Relationship Specialty Start Date End Date Srikanth Landa MD [address] [place] [address] PCP - General Family Medicine 06/13/24 Rod Forbes MD [address] [place] [address] Primary Oncologist Medical Oncology 04/24/22 Bell Gil CNP [address] [place] [address] Nurse Practitioner Medical Oncology 05/18/22 Yas Tejeda NP [address] [place] [address] Nurse Practitioner Medical Oncology 07/09/22 02/27/25 documented as of this encounter Additional Source Comments The information contained in this document represents components of the legal health record. It is not the complete legal health record.[facility]
--- OUTSIDE RECORDS SUMMARY | 2025-06-01 15:16 | XMS_ITS ---
Continuity of Care Document (CCD) Created on: June 01, 2025 Norah Anaya External Reference #: [id number] : [id number] Sex: Female Author Organization [facility] Address [address] [place] [address] [address] [place], [place] Phone [phone] Care Team Providers Care Director Information Name Role Phone Fatou Bruner MD Care Team Information Regulatory Auditor [facility] YAIR LARSEN M.D. Care Team Information Rec eiver Unavailable Fatou Bruner MD Primary Care Physician Unavailab le Social History Type Date Description Comments Sex Female Sex Unknown
--- OUTSIDE RECORDS SUMMARY | 2025-06-01 15:16 | XMS_ITS | Encounter Summary ---
Author Organization [facility] Address [address] [place] [id number] Care Team Providers Care Pipe Joints Supervisor Name Role Phone Jio Yeung MD Primary Care Provider [phone] Chantal Ocasio MD Primary Care Provider Unavailab le Unknown Pcp, Non Rmg Primary Care Provider Unava ilable Fatou Bruner MD Primary Care Provider [phone] Encounter Details Date Type Department Care Team (Late st Contact Info) Description 06/09/2011 Orders Only [facility] [address] [place] [address] Joi Yeung MD [address] [place] [address] Social History Tobacco Use Types Packs/Day Years [...] as of this encounter Progress Notes * Joann Chandler 06/11/2011 7:39 AM EDTQuick Note: . * Joann Chandler - 06/10/2011 7:34 AM EDTQuick Note: . documented in this encounter Plan of Treatment Not on file documented as of this encounter Procedures * Due to [place] [employer] law, this organization might not be sharing negative HIV tests. Procedure Name Priority Date/Time Associated Diagnosis Comments CBC INCLUDES DIFFERENTIAL AND PLATELET COUNT Routine 06/09/2011 9:19 AM EDT Screening for deficiency anemia VITAMIN D, 25-HYDROXY, TOTAL, IMMUNOASSAY Routine 06/09/2011 9:19 AM EDT Screening for endorine/nutritiona l/metabolic disease LIPID PANEL WITH REFLEX TO DIRECT LDL Routine 06/09/2011 9:19 AM EDT Lipid screening BASIC METABOLIC PANEL WITH (GFR) Routine 06/09/2011 9:19 AM EDT Routine history and physical examination of adult documented in this encounter Results * Due to [place] [employer] law, this organization might not be sharing negative HIV tests. * VITAMIN D, 25-HYDROXY, LC/MS/MS (06/09/2011 9:19 AM EDT) Vitamin D, 25-OH, Total 30 30 - 100 ng/mL [facility] Comment:{VITAMIN D, 25 OH, T OTAL {[id number]) Vitamin D, D3 (Cholecalciferol ) 30 ng/mL [facility] Comment:{VITAMIN D, 25 OH, D 3 {[id number]) Vitamin D, 25-OH, D2 (Calciferol) <4 ng/mL [facility] Comment: {VITAMIN D, 25 OH, D2 {[id number]) 25-OHD3 indicates both endogenous production and supplementation. 25-OHD2 is an indicator of exogenous sources such as diet or supplementation. Therapy is based on measurement of Total 25-OHD, with levels <20 ng/mL indicative of Vitamin D deficiency, while levels between 20 ng/mL and 30 ng/mL suggest insufficiency. Optimal levels are > or = 30 ng/mL. 06/09/2011 9:19 AM EDT 06/09/2011 5:56 PM EDT Narrative Resulting Agency Comment [id number] Joi Yeung MD LABORATORY Final Result [facility] [address] [place] [address] * BASIC METABOLIC PANEL WITH (GFR) (06/09/2011 9:19 AM EDT) Glucose 87 65 - 99 mg/dL [facility] Comment: {GLUCOSE {[id number]) Fasting reference interval Urea Nitrogen Blood (BUN) 23 7 - 25 mg/dL [facility] Comment:{UREA NITROGEN (BUN) {[id number]) Creatinine 0.91 0.60 - 1.18 mg/dL [facility] Comment:{CREATININE {[id number]) GFR 66 > OR = 60 mL/min/1. 73m2 [facility] Comment:{eGFR NON-AFR. AMERI CAN {[id number]) GFR () 77 > OR = 60 mL/min/1. 73m2 [facility] Comment:{eGFR AMERIC AN {[id number]) BUN/Creatinine Ratio NOT APPLICABLE 6 - 22 (calc) [facility] Comment:{BUN/CREATININE RATI O {[id number]) Sodium 141 135 - 146 mmol/L [facility] Comment:{SODIUM {[id number]) Potassium 4.5 3.5 - 5.3 mmol/L [facility] Comment:{POTASSIUM {[id number]) Chloride 105 98 - 110 mmol/L [facility] Comment:{CHLORIDE {[id number]) Carbon dioxide 26 21 - 33 mmol/L [facility] Comment:{CARBON DIOXIDE {[id number]) Calcium 9.5 8.6 - 10.2 mg/dL [facility] Comment:{CALCIUM {[id number]) 06/09/2011 9:19 AM EDT 06/09/2011 5:56 PM EDT Narrative [facility] - 06/09/2011 10:21 PM EDT Please note that this estimated GFR does [...] needs for GFR calculation. Resulting Agency Comment [id number] Joi Yeung MD LABORATORY Final Result Performing Organization Address City/[facility] Co de Phone Number [facility] [address] [place] [address] * (ABNORMAL) LIPID PANEL WITH REFLEX TO DIRECT LDL (06/09/2011 9:19 AM EDT) Cholesterol 219(H) 125 - 200 mg/dL [facility] Comment:{CHOLESTEROL, TOTAL {[id number]) HDL Cholesterol 98 > OR = 46 mg/dL [facility] Comment:{HDL CHOLESTEROL {[id number]) Triglyceride 53 <150 mg/dL [facility] Comment:{TRIGLYCERIDES {[id number]) LDL Cholesterol 110 <130 mg/dL (calc) [facility] Comment: {LDL-CHOLESTEROL {[id number]) Desirable range <100 mg/dL for patients with CHD or diabetes and <70 mg/dL for diabetic patients with known heart disease. CHOL/HDL Ratio 2.2 < OR = 5.0 (calc) [facility] Comment:{CHOL/HDLC RATIO {[id number]) 06/09/2011 9:19 AM EDT 06/09/2011 5:56 PM EDT Narrative Resulting Agency Comment [id number] Joi Yeung MD LABORATORY Final Result Performing Organization Address [facility]/ZIP Co de Phone Number [facility] [address] [place] [address] * (ABNORMAL) CBC INCLUDES DIFFERENTIAL AND PLATELET COUNT (06/09/2011 9:19 AM EDT) WBC 5.3 3.8 - 10.8 Thousand/u L [facility] Comment:{WHITE BLOOD CELL CO UNT {[id number]) RBC 4.52 3.80 - 5.10 Million/uL [facility] Comment:{RED BLOOD CELL COUN T {[id number]) Hemoglobin 14.5 11.7 - 15.5 g/dL [facility] Comment:{HEMOGLOBIN {[id number]) Hematocrit 42.7 35.0 - 45.0 % [facility] Comment:{HEMATOCRIT {[id number]) MCV 94.3 80.0 - 100.0 fL [facility] Comment:{MCV {[id number]) MCH 32.1 27.0 - 33.0 pg [facility] Comment:{MCH {[id number]) MCHC 34.1 32.0 - 36.0 g/dL [facility] Comment:{MCHC {[id number]) RDW 13.9 11.0 - 15.0 % [facility] Comment:{RDW {[id number]) PLT 222 140 - 400 Thousand/u L [facility] Comment:{PLATELET COUNT {[id number]) MPV 7.3(L) 7.5 - 11.5 fL [facility] Comment:{MPV {[id number]) Neutrophils # 3079 1500 - 7800 cells/uL [facility] Comment:{ABSOLUTE NEUTROPHIL S {[id number]) Lymphocytes # 1542 850 - 3900 cells/uL [facility] Comment:{ABSOLUTE LYMPHOCYTE S {[id number]) Monocytes # 567 200 - 950 cells/uL [facility] Comment:{ABSOLUTE MONOCYTES {[id number]) Eosinophils # 74 15 - 500 cells/uL [facility] Comment:{ABSOLUTE EOSINOPHIL S {[id number]) Basophils # 37 0 - 200 cells/uL [facility] Comment:{ABSOLUTE BASOPHILS {[id number]) Neutrophils % 58.1 % [facility] Comment:{NEUTROPHILS {[id number]) Lymphocytes % 29.1 % [facility] Comment:{LYMPHOCYTES {[id number]) Monocytes % 10.7 % [facility] Comment:{MONOCYTES {[id number]) Eosinophils % 1.4 % [facility] Comment:{EOSINOPHILS {[id number]) Basophils % 0.7 % [facility] Comment:{BASOPHILS {[id number]) 06/09/2011 9:19 AM EDT 06/09/2011 5:56 PM EDT Narrative Resulting Agency Comment [id number] Joi Yeung MD LAB SAME DAY RESULT Final Res ult [facility] [address] [place] [address] documented in this encounter Visit Diagnoses Diagnosis Screening for deficiency anemia Screening for other and unspecified deficiency anemia Lipid screening Screening for lipoid disorders Routine history and physical examination of adult Routine general medical examination at a health care facility Screening for endorine/nutritional/metabolic disease Screening for other and unspecified endocrine, nutritional, metabolic, and immunity disorders documented in this encounter Care Teams Pipe Joints Supervisor Relationship Specialty Start Date End Date Joi Yeung MD [address] [place] [address] PCP - General 10/31/05 09/01/11 Chantal Ocasio MD PCP - General 09/02/11 03/20/13 Unknown Pcp, Non Rmg PCP - General 03/21/13 05/13/17 Fatou Bruner MD [facility] [address] [place] [address] PCP - General Family Medicine 06/12/19 documented as of this encounter
--- OUTSIDE RECORDS SUMMARY | 2025-06-01 15:16 | XMS_ITS | Encounter Summary ---
Author Organization [facility] Address [address] [id number] Care Team Providers Care Radiologic Technologist Name Role Phone Joi Yeung MD Primary Care Provider [phone] Chantal Ocasio MD Primary Care Provider Unavailab le Unknown Pcp, Non Rmg Primary Care Provider Unava ilable Fatou Bruner MD Primary Care Provider [phone] Encounter Details Date Type Department Care Team (Late st Contact Info) Description 03/03/2010 Orders Only [facility] [address] [place] [address] Joi Yeung MD [address] [place] [address] Social History Tobacco Use Types Packs/Day Years [...] of this encounter Procedures * Due to [place] state law, this organization might not be sharing negative HIV tests. Procedure Name Priority Date/Time Associated Diagnosis Comments LIPID PANEL + CARDIAC RISK WITH REFLEX TO LDL DIRECT Routine 03/03/2010 Palpitations documented in this encounter Results * Due to [place] [employer] law, this organization might not be sharing negative HIV tests. * (ABNORMAL) LIPID PANEL + CARDIAC RISK WITH REFLEX TO LDL DIRECT (03/03/2010) CHOLESTEROL, TOTAL 215(H) 125 - 200 MG/DL [facility] TRIGLYCERIDES 100 30 - 149 MG/DL [facility] HDL-CHOLESTEROL 92(H) 40 - 77 MG/DL [facility] LDL-CHOLESTEROL 103 62 - 130 MG/DL [facility] Comment: RISK CATEGORY: LDL-CHOLESTEROL GOAL CHD AND CHD RISK EQUIVALENTS: <100 MULTIPLE (2+) FACTORS: <130 ZERO TO ONE RISK FACTOR: <160 CHD RELATIVE RISK RATIO (TOTAL/HDL) 2.34 0.0 - 5.0 [facility] Comment:(< .25 X AVERAGE) 03/03/2010 03/03/2010 6:1 4 PM EDT Joi Yeung MD LABORATORY Final Result Performing Organization Address City/State/[facility] Co de Phone Number [facility] [address] [place] [address] documented in this encounter Visit Diagnoses Diagnosis Palpitations documented in this encounter Care Teams Radiologic Technologist Relationship Specialty Start Date End Date Joi Yeung MD [address] [place] [address] PCP - General 10/31/05 09/01/11 Chantal Ocasio MD PCP - General 09/02/11 03/20/13 Unknown Pcp, Non Rmg PCP - General 03/21/13 05/13/17 Fatou Bruner MD [facility] [address] [facility] [place] [address] PCP - General Family Medicine 06/12/19 documented as of this encounter
--- OUTSIDE RECORDS SUMMARY | 2025-06-01 15:16 | XMS_ITS | Clinical Summary ---
Author Organization [facility] Address [address] [place] [address] Care Team Providers Care Help Desk Agent Name Role Phone Fatou Bruner MD Primary Care Provider [phone] Allergies Active Allergy Reactions Criticality Noted Date Comments Sulfamethoxazole W-Trimethoprim resistant Erythromycin Maculopapular Rash,Urticarial Rash 09/09/1998 Refresh P.M. 09/28/2007 Redness of eye Medications * This document contains information received from the source organization and may not represent a complete record from that organization. MELATONIN 500-20-50 MCG-MG-MG OR TABS 1/2 TABLET DAILY Active Calcium Citrate 1040 MG Tab pt takes 1,000 mg capsule 4 tablets by mouth daily Active ALPRAZolam 2 MG Tab as needed Active Cyanocobalamin (VITAMIN B-12 CR) 1000 MCG Tab CR Take by mouth daily. Active Omeprazole 20 MG CAPSULE DELAYED RELEASE pt takes 2 tablets daily unsure of dose Active Denosumab 60 MG/ML SolutionIndications :Primary osteoarthritis of left hand 60 MG EVERY 6 MONTHS 1 Syringe 8 Active Denosumab (PROLIA) 60 MG/ML Solution Prefilled Syringe Inject 60 mg SC once every 6 month 1 mL 9 Active Famotidine (PEPCID) 10 MG tablet Take 10 mg by mouth 2 (two) times a day Active denosumab 60 MG/ML Solution Prefilled SyringeIndications: Age related osteoporosis, unspecified pathological fracture presence Inject 60 mg under the skin every 6 (six) months 1 Syringe 0 Active Active Problems Problem Noted Date Diagnosed Date Duodenal ulcer, unspecified as acute or chronic, without hemorrhage, perforation, or obstruction 06/24/2012 Overview (11/17/2015): Dx'd 2010 - required extensive intervention including picc line, no solid foods for 6 months. Has been on omeprazole since that time with sx under good control at this time. Irregular heart beat 06/24/2012 Overview (06/24/2012): Gets intermittent skipped beats - had been told MVP, but ECHO 2009 did not show evidence of MVP. FH: colon polyps 10/08/2011 Overview (10/08/2011): 2011 colon comp, pt needs 5 yr f/u due 2016 Routine general medical exam ination at a health care facility 03/12/2011 Overview (06/24/2012): Colonoscopy 2011 normal. Repeat in 5 yrs d/t FH polyps. 06/20: CPE and breast exam performed. LPS 06/2011 normal. Pneumovax given, refuses flu shot. Remainder of Imm UTD. F/up in 1 year. Anxiety 04/17/2008 Overview (06/24/2012): 06/19 Stable-uses alprazolam rarely on as needed basis. 06/20: Continue prn alprazolam. Referred to counseling for additional support. Sx do not meet criteria at this time for consideration of SSRI. Psoriasis 08/26/2005 Overview (06/16/2011): 06/19 Stable, mild psoriasis, no active lesions Irritable bowel syndrome 08/26/2005 Overview (06/16/2011): Tends to have loose stools, previous workup negative.last colonoscopy 2004 was normal, advised 5 year followup colonoscopy in view of family history of polyps. 06/19 Stable, colonoscopy referral sent. Gastroesophageal reflux disease 08/26/2005 Overview (12/10/2020): 06/19 Stable, takes prilosec with relief. Celiac sprue 08/26/2005 Overview (06/24/2012): In infancy d/t FTT. She tries to follow glutein free diet more so now since her mother and her sister have also been diagnosed to have celiac disease 06/19 Stable Hepatitis B infection 08/26/2005 Overview (06/16/2011): 06/19 Stable- In the past, has cleared antigen. Osteoporosis 08/26/2005 Overview (07/05/2015): Continue supplemental calcium and vitamin D. Stopped fosamax In 2006 after taking it for 2 years, does not want to restart. 06/19 Stable, continues with calcium, vitamin D level normal. 06/20: Recheck dexa (last in 2007). Continue calcium, Vit D. F/up pending results of dexa. 09/21: Osteoporosis with T-score LS spine of -4.0. Given h/o perf'd duodenal ulcer, will refer to rheum to discuss other injectable/alternate options for treatment for osteoporosis. Cont calcium, vit D supplementation. , Abnormal LFTs (liver function tests) 08/26/2005 Overview (06/05/2021): In June 2004. Workup of elevated transaminases was negative, continue to monitor periodically Immunizations Immunization Administration Dates Next Due PPD/TST (Tuberculin Skin Test) 5,10/16/2003,01/31/2003,05/11/2002,1 PPV23 (Pneumovax) 06/24/2012 Td (adult), adsorbed 09/02/2011,08/09/1999,03/02 Family History Medical History Relation Name Comments Psych/Mental Health Daughter 1 Leonila Depressi on Gastrointestinal Disorder Daughter 2 catherine ce liac disease Psych/Mental Health Daughter 3 masoud bipolar disorder Psych/Mental Health Daughter 6 Crystal Anxiety Psych/Mental Health Daughter 7 Chauncey Depressi on Gastrointestinal Disorder Father co yamel polyps Heart Disorder Father CABG - 70's Other Father OCD, defibrilla tor, head injury during war Alcohol/Drug Maternal grandfather ETOH, c irrhosis Gastrointestinal Disorder Mother ce liac disease Other Mother Glaucoma, macul ar degeneration,CREST,DVT,pulm HTN Pulmonary Disorder Mother pulm HTN Diabetes Other 1 PGA Heart Disorder Other 2 MGA - s/p CAB G Diabetes Paternal grandfather Heart Disorder Paternal grandfather CVA Heart Disorder Paternal uncle 2 [place] age 48 Gastrointestinal Disorder Sister 2 Ce liac disease Thyroid Disorder Sister 3 thyroid pro blem Other Sister 4 hip replacement Gastrointestinal Disorder Spouse 2 he patits C, failed treatment Other Neg Hx no breast,ovari an or colon cancer Relation Name Status Comments Daughter 1 Leonila Alive 45,bipolar diso rder Daughter 2 catherine Alive 28,celiac disea se Daughter 3 masoud Alive 30,query bipola r disorder, stomach issues Daughter 4 joanne Alive 43,anxiety Daughter 5 maribeth Alive 41,depression,l ipomas Daughter 6 Crystal Daughter 7 Chauncey Father (Age 85) colon poly ps ,PTSD,cad Maternal grandfather Cirrhos is Maternal grandmother Old age Mother (Age 86) leg ulcer, crest,GLAUCOMA, MACULAR DEGENRATION,DVT,pulm HTN Other 1 Other 2 Paternal grandfather diabete s Paternal grandmother (Age 90's) CVA Paternal uncle 1 (Age 48) [place] Paternal uncle 2 Sister 1 Lauren Alive 58, celiac dise ase,thyroid problem Sister 2 Sister 3 Sister 4 Spouse 1 Arthur Alive 58,hepatitis C failed treatment Spouse 2 Social History Tobacco Use Types Packs/Day Years Used Date Smoking Tobacco: Former Cigarettes 0.5 12 0 08/09/1962 - 08/09/1974 Smokeless Tobacco: Never Comments:quit at age 29 Alcohol Use Standard Drinks/Week Comments Yes 0 (1 standard drink = 0.6 oz pur e alcohol) occasional Intimate Partner Violence Answer Date R ecorded Fear of Current or Ex-Partner Not on file Emotionally Abused Not on file 03/28/2023 Physically Abused Not on file 03/28/2023 Sexually Abused Not on file 03/28/2023 Feel Safe at Home Not on file 03/28/2023 Comments No Sex and Gender Information Value Date Recorded Sex Assigned at Not on file Legal Sex Female 1:20 AM EDT Gender Identity Not on file Sexual Orientation Not on file 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 file Not on file Not on cindi e Last Filed Vital Signs Vital Sign Reading Time Taken Comments Blood Pressure 160/72 02/01/2020 12:55 PM EDT Pulse 64 02/01/2020 12:55 PM EDT Temperature 36.9 C (98.5 F) 09/27/2012 10:08 AM EST Respiratory Rate 16 02/09/2010 3:21 PM EDT Oxygen Saturation 99% 02/09/2010 3:21 PM EDT Inhaled Oxygen Concentration - - Weight 53.5 kg (118 lb) 02/01/2020 12:52 PM EDT Height 156.2 cm (5' 1.5 ) 06/24/2012 9:59 AM EST Body Mass Index 21.93 06/24/2012 9:59 AM EST Plan of Treatment Health Maintenance Due Date Last Done Comments Zoster (Shingrix) (1 of 2) 1995 DTaP/Tdap/Td (1 - Tdap) 09/03/2011 09/02/19 12, 08/09/1999, 03/02/1991 Pneumococcal 50+ years (2 of 2 - PCV) 06/24/2013 06/24/2012 RSV (1 - 1-dose 75+ series) 2020 Colonoscopy 08/16/2022 08/16/2017, 09/10, 04/21/2005, Additional history exists COVID-19 Vaccine ( season) 2025 06/12/2021, 11/04/2020, 10/07/2020 Influenza (#1) 2025 07/24/2021, 05/10, 06/20/2018, Additional history exists PPD Discontinued 10/21/2004, 10/07, 10/16/2003, Additional history exists Hepatitis C Screening Completed 02/26/2009, 004 Chest Imaging Discontinued 03/07/2009, 02/06, 02/23/2009, Additional history exists EKG Discontinued 02/09/2010, 09/02/2007 Pap Smear Discontinued 06/16/2011, 03/2008, 08/26/2005, Additional history exists LDL Cholesterol Discontinued 06/17/2012, 08/2010, 03/03/2010, Additional history exists Bone Density Completed 01/02/2020, 12/08, 2012, Additional history exists Mammogram/Breast Imaging Discontinued 021, 03/21/2020, 12/15/2012, Additional history exists Eye/Retina Exam Discontinued 12/18/2021, 12/07, 12/18/2021, Additional history exists HPV Vaccine (No Doses Required) Completed Hep A Aged Out No longer eligi ble based on patient's age to complete this topic Hib Aged Out No longer eligi ble based on patient's age to complete this topic Meningococcal ACWY Aged Out No longer eligible based on patient's age to complete this topic Zoster (Zostavax) Discontinued Procedures * Due to [place] [employer] law, this organization might not be sharing negative HIV tests. Procedure Name Priority Date/Time Associated Diagnosis Comments DUAL ENERGY DEXA BONE DENSITY ONE/MORE SITES AXIAL SKEL 01/02/2020 MAMMOGRAM SCREENING , BILATERAL FC Routine 12/15/2012 9:16 AM EDT Other screening mammogram LIPID PANEL WITH REFLEX TO DIRECT LDL Routine 06/17/2012 8:39 AM EST Lipid screening COLORECTAL SCRN; HI RISK IND Routine 09/29/2011 Family history of colonic polyps LIQUID-BASED PAP WITH HPVH Routine 06/16/2011 9:45 AM EST EKG Routine 02/09/2010 4:21 PM EDT CHEST XRAY POST PROCEDURE WITH OTHER GUIDANCE - 1 VIEW Routine 03/07/2009 12:35 PM EDT HEPATITIS PANEL, ACUTE STAT (All results called to provider) 02/26/2009 Abdominal Pain SKIN TEST; TUBERCULOSIS, INTRADERMAL 0.1ML 10/21/2004 12:00 AM EST Screening Examination For Pulmonary Tuberculosis from Last 3 Months or Most Recently Relevant to Health Maintenance Results * Due to [place] [employer] law, this organization might not be sharing negative HIV tests. * DUAL ENERGY DEXA BONE DENSITY ONE/MORE SITES AXIAL SKEL (01/02/2020) 01/02/2020 Narrative 01/02/2020 Ordered by an unspecified provider. us Unknown Provider GENERAL IMAGING- OTHER Final Re sult * MAMMOGRAM SCREENING , BILATERAL FC (12/15/2012 9:16 AM EDT) LETTER SENT A mammogram letter type ANB was mailed to patient [facility] (IA# [id number]) Anatomical Region Laterality Modality BREAST Bilateral Mammography 12/16/2012 10:4 8 AM EDT Comment:GSB RAD Narrative 12/16/2012 10:48 AM EDT Screening mammogram performed 12/15/2012. History: Routine screening Comparison: Comparison is made to prior mammograms dating back to 10/17/2007. Technique: Full-field digital mammography was performed and interpreted with the assistance of CAD. Findings: There are scattered fibroglandular densities in both breasts . No suspicious masses, areas of unexplained architectural distortion, or suspicious clusters of calcifications are seen within either breast. Impression: No mammographic evidence of malignancy. Recommend routine annual screening. A letter (A) in lay language describing the results will follow this report. The FDA, in accordance with the Mammography Quality Standards Act, requires that this letter be sent to the patient by the interpreting radiologist. BI-RADS Category 1: Negative *#ANB#* Procedure Note Erin Pina MD - 12/16/2012 Screening mammogram performed 12/15/2012. History: Routine screening Comparison: Comparison is made to prior mammograms dating back to 10/17/2007. Technique: Full-field digital mammography was performed and interpreted with the assistance of CAD. Findings: There are scattered fibroglandular densities in both breasts . No suspicious masses, areas of unexplained architectural distortion, or suspicious clusters of calcifications are seen within either breast. Impression: No mammographic evidence of malignancy. Recommend routine annual screening. A letter (A) in lay language describing the results will follow this report. The FDA, in accordance with the Mammography Quality Standards Act, requires that this letter be sent to the patient by the interpreting radiologist. BI-RADS Category 1: Negative *#ANB#* us Joi Yeung MD IMG MAMMO ORDERABLES Final Re sult * (ABNORMAL) LIPID PANEL WITH REFLEX TO DIRECT LDL (06/17/2012 8:39 AM EST) Cholesterol 205(H) 125 - 200 mg/dL [facility] Comment:{CHOLESTEROL, TOTAL {[id number]) HDL Cholesterol 91 > OR = 46 mg/dL [facility] Comment:{HDL CHOLESTEROL {[id number]) Triglyceride 54 <150 mg/dL [facility] Comment:{TRIGLYCERIDES {[id number]) LDL Cholesterol 103 <130 mg/dL (calc) [facility] Comment: {LDL-CHOLESTEROL {[id number]) Desirable range <100 mg/dL for patients with CHD or diabetes and <70 mg/dL for diabetic patients with known heart disease. CHOL/HDL Ratio 2.3 < OR = 5.0 (calc) [facility] Comment:{CHOL/HDLC RATIO {[id number]) Cholesterol Non-HDL 114 mg/dL (calc) [facility] Comment: {NON HDL CHOLESTEROL {[id number]) Target for non-HDL cholesterol is 30 mg/dL higher than LDL cholesterol target. 06/17/2012 8:39 AM EST 06/17/2012 1:10 PM EST Narrative Resulting Agency Comment [id number] us Chantal Ocasio MD LABORATORY Final Result Performing Organization Address City/State/[facility] Co de Phone Number [facility] [address] [place] [address] * COLORECTAL SCRN; HI RISK IND (09/29/2011) Narrative Transcriptions Nico Woodard - 10/16/2011 12:00 AM EST us Nico Woodard MD PROCEDURES Final Result * LIQUID-BASED PAP WITH HPVH (06/16/2011 9:45 AM EST) Clinical information Normal exam Postmenopausal [facility] Comment:{CLINICAL INFORMATIO N: {[id number]) LMP POSTMENOPAUSAL [facility] Comment:{LMP: {[id number]) Date of previous PAP smear NONE GIVEN [facility] Comment:{PREV. PAP: {[id number]) Date of previous biopsy NONE GIVEN [facility] Comment:{PREV. BX: {[id number]) Specimen source (Cvx/Vag) Vagina, Cervix, Endocervix [facility] Comment:{SOURCE: {[id number]) Statement of Adequacy (Cvx/Vag) Satisfactory for evaluation. Endocervical/grant sformation zone component present. [facility] Comment:{STATEMENT OF ADEQUA CY: {[id number]) Cytology, Pap Smear Negative for intraepithelial lesion or malignancy. [facility] Comment:{INTERPRETATION/RESU LT: {[id number]) Cytology study comment (Cvx/Vag) This Pap test has been evaluated with computer assisted technology. [facility] Comment:{COMMENT: {[id number]) Teradata Architect (Cvx/Vag) DMM, CT(ASCP) [facility] Comment:{TRAIN DIRECTOR: { [id number]) Human Papillomavirus (HPV) DNA, High Risk Test not performed. Quantity not sufficient. [facility] Comment:{HPV DNA (HIGH RISK) {[id number]) 06/16/2011 9:45 AM EST 06/16/2011 10:26 PM EST Dulce NG PATHOLOGY-INTERFACED Final Resu lt Performing Organization Address City/State/[facility] Co de Phone Number [facility] [address] [place] [address] * CHEST XRAY POST PROCEDURE WITH OTHER GUIDANCE - 1 VIEW (03/07/2009 12:35 PM EDT) RADIOLOGY REPORT Portable chest: One view. Time of study 12:30. The PICC line enters on the right, the tip is in the superior vena cava. Heart and pulmonary vascularity are normal. There is no pneumothorax. No infiltrates or effusions are seen. Impression: PICC line in SVC. Anatomical Region Laterality Modality Other 03/07/2009 12:3 5 PM EDT Narrative 03/07/2009 12:35 PM EDT Reason for Study/History: Time of study 12:30. TEST(S) PROCESSED BY [facility] XRAY us Chelsie Witt MD IMAGING-[facility] Final Result * HEPATITIS PANEL, ACUTE (02/26/2009) HEPATITIS B SURFACE ANTIGEN NEUTRALIZATION NON-REACT GLYNN NON-REACT GLYNN [facility] HEPATITIS C AB NON-REACT GLYNN NON-REACT GLYNN [facility] HEPATITIS A AB.IGM NON-REACT GLYNN NON-REACT GLYNN [facility] HEPATITIS B CORE AB.IGM NON-REACT GLYNN NON-REACT GLYNN [facility] 02/26/2009 02/26/2009 2:2 3 PM EDT Joi Yeung MD LABORATORY Final Result [facility] [address] [place] [address] from Last 3 Months or Most Recently Relevant to Health Maintenance Insurance MEDICARE PART B [employer] [facility] MEDICARE/COMMERCIAL Care Teams Help Desk Agent Relationship Specialty Start Date End Date Fatou Bruner MD [facility] [address] [place] [address] PCP - General Family Medicine 06/12/19
--- OUTSIDE RECORDS SUMMARY | 2025-06-01 15:16 | XMS_ITS | Encounter Summary ---
Author Organization [facility] Address [address] [id number] Care Team Providers Care Mail Superintendent Name Role Phone Joi Yeung MD Primary Care Provider [phone] Chantal Ocasio MD Primary Care Provider Unavailab le Unknown Pcp, Non [facility] Primary Care Provider Unava ilable Fatou Bruner MD Primary Care Provider [phone] Encounter Details Date Type Department Care Team (Late st Contact Info) Description 04/25/2008 Orders Only [facility] [address] [place] [address] Joi Yeung MD [address] [place] [id number] Social History Tobacco Use Types Packs/Day Years [...] of this encounter Procedures * Due to [place] state law, this organization might not be sharing negative HIV tests. Procedure Name Priority Date/Time Associated Diagnosis Comments CARDIAC RISK/LIPID PROFILE I Routine 04/25/2008 Screening for Lipoid Disorders BASIC METABOLIC PANEL Routine 04/25/2008 Routine General Medical Examination at a Health Care Facility Screening for Diabetes Mellitus CBC 5 PART DIFF Routine 04/25/2008 Routine General Medical Examination at a [facility] Care Facility THYROID CASCADE Routine 04/25/2008 Routine General Medical Examination at a [facility] Care Facility OCCULT BLOOD (STOOL GUAIAC) 3 SAMPLES Routine 04/25/2008 Special Screening for Malignant Neoplasms, Colon HEPATIC FUNCTION PANEL Routine 04/25/2008 Routine General Medical Examination at a [facility] documented in this encounter Results * Due to [place] [employer] law, this organization might not be sharing negative HIV tests. * (ABNORMAL) HEPATIC FUNCTION PANEL (04/25/2008) Total Protein 7.3 6.2 - 8.3 G/DL ALBUMIN 4.6 3.2 - 4.6 G/DL GLOBULIN 2.7 2.2 - 3.9 G/DL ALBUMIN/GLOBULIN RATIO 1.7 1.0 - 2.1 BILIRUBIN TOTAL 1.6(H) 0.2 - 1.2 MG/DL BILIRUBIN DIRECT 0.3(H) 0 - 0.2 MG/DL ALKALINE PHOSPHATASE 72 33 - 130 U/L AST (SGOT) 28 10 - 35 U/L ALT (SGPT) 24 6 - 40 U/L 04/25/2008 04/25/2008 6:0 6 PM EDT Joi Yeung MD LABORATORY Final Result * BASIC METABOLIC PANEL (04/25/2008) CALCIUM 9.8 8.6 - 10.2 MG/DL BUN 18 7 - 25 MG/DL CREATININE 0.85 0.50 - 1.20 MG/DL Glucose 91 65 - 99 MG/DL SODIUM 142 135 - 146 MMOL/L POTASSIUM 4.7 3.5 - 5.3 MMOL/L CHLORIDE 105 98 - 110 MMOL/L CARBON DIOXIDE 25 21 - 33 MMOL/L 04/25/2008 04/25/2008 6:0 6 PM EDT us Joi Yeung MD LAB SAME DAY RESULT Final Res ult * (ABNORMAL) CBC 5 PART DIFF (04/25/2008) WHITE BLOOD COUNT 5.8 3.8 - 10.8 THOUS/UL RBC 4.61 3.80 - 5.10 MIL/UL Hemoglobin 14.5 11.7 - 15.5 G/DL HCT (HEMATOCRIT) 42.9 35.0 - 45.0 % MCV 93.1 80.0 - 100.0 FL MCH 31.5 27.0 - 33.0 PG MCHC 33.8 32.0 - 36.0 G/DL BAND % 0 0 - 5 % NEUTROPHIL % 63 48 - 75 % LYMPHOCYTE % 25 17 - 40 % MONOCYTE % 10 0 - 14 % EOSINOPHIL % 1 0 - 5 % BASOPHIL % 1 0 - 3 % ATYPICAL LYMPHOCYTE % 0 0 - 5 % PLATELETS 263 140 - 400 THOUS/UL BANDS # 0 0 - 750 CELLS/MCL NEUTROPHILS # 3654 1500 - 7800 CELLS/MCL LYMPHOCYTES # 1450 850 - 3900 CELLS/MCL MONOCYTES # 580 200 - 950 CELLS/MCL EOSINOPHILS # 58 15 - 550 CELLS/MCL BASOPHILS # 58 0 - 200 CELLS/MCL ATYPICAL LYMPHOCYTES # 0 0 - 200 CELLS/MCL RDW 13.9 11.0 - 15.0 % MPV 7.0(L) 7.5 - 11.5 FL 04/25/2008 04/25/2008 6:0 6 PM EDT us Joi Yeung MD LAB SAME DAY RESULT Final Res ult * THYROID CASCADE (04/25/2008) TSH, THYROTROPIN 1.43 0.40 - 4.50 UIU/ML 04/25/2008 04/25/2008 6:0 6 PM EDT us Joi Yeung MD LABORATORY Final Result * OCCULT BLOOD (STOOL GUAIAC) 3 SAMPLES (04/25/2008) OCCULT BLOOD GUAIAC (STOOL) TNP OCCULT BLOOD GUAIAC (STOOL) TNP OCCULT BLOOD GUAIAC (STOOL) TNP 04/25/2008 04/26/2008 2:3 2 AM EDT Narrative 06/26/2008 8:21 AM EST Report Comments: NO OCCULT BLOOD SAMPLE RECEIVED, TEST CANCELED. Joi Yeung MD LABORATORY Final Result * (ABNORMAL) CARDIAC RISK/LIPID PROFILE I (04/25/2008) CHOLESTEROL, TOTAL 197 125 - 200 MG/DL TRIGLYCERIDES 50 30 - 149 MG/DL HDL-CHOLESTEROL 101(H) 40 - 77 MG/DL LDL-CHOLESTEROL 86 62 - 130 MG/DL Comment: RISK CATEGORY: LDL-CHOLESTEROL GOAL CHD AND CHD RISK EQUIVALENTS: <100 MULTIPLE (2+) FACTORS: <130 ZERO TO ONE RISK FACTOR: <160 CHD RELATIVE RISK RATIO (TOTAL/HDL) 1.95 0.0 - 5.0 Comment:(< .25 X AVERAGE) 04/25/2008 04/25/2008 6:0 6 PM EDT us Joi Yeung MD LABORATORY Final Result documented in this encounter Visit Diagnoses Diagnosis Screening for lipoid disorders Special screening for malignant neoplasms, colon Routine general medical examination at a health care facility Screening for diabetes mellitus documented in this encounter Care Teams Mail Superintendent Relationship Specialty Start Date End Date Joi Yeung MD [address] [place] [address] PCP - General 10/31/05 09/01/11 Chantal Ocasio MD PCP - General 09/02/11 03/20/13 Unknown Pcp, Non [facility] PCP - General 03/21/13 05/13/17 Fatou Bruner MD [facility] [address] [place] [address] PCP - General Family Medicine 06/12/19 documented as of this encounter
--- OUTSIDE RECORDS SUMMARY | 2025-06-01 15:17 | XMS_ITS | Encounter Summary ---
Author Organization [facility] Address [address] [place] [address] Care Team Providers Care Fish Hatchery Superintendent Name Role Phone Unavailable Primary Care Provider Unavailabl e Encounter Details Date Type Department Care Team (Late st Contact Info) Description 12/23/2020 Lab Requisition [facility] Pathology & Laboratory Medicine - [facility] [address] [place] [address] Outr Resulting Lab, Provider Social History Tobacco Use Types Packs/Day Years Used Date Smoking Tobacco: Never Assessed Interpersonal Safety Answer Date Record ed Physically Hurt Never 07/02/2020 Verbally Threaten Not on file 07/02/2020 Comments Unknown Sex and Gender Information Value Date Recorded Sex Assigned at Not on file Legal Sex Female 15:50 EDT Gender Identity Not on file Sexual Orientation Not on file documented as of this encounter Plan of Treatment Not on file documented as of this encounter Procedures Procedure Name Priority Date/Time Associated Diagnosis Comments PTH INTACT Routine 12/23/2020 9:44 EDT documented in this encounter Results * PTH INTACT (12/23/2020 9:44 EDT) Intact PTH 50 19 - 88 pg/mL 12/24/2020 8:59 EDT [facility] Blood VENOUS BLOOD / Unknown 12/23/2020 9:44 EDT 12/23/2020 21:50 EDT us Provider Outr Resulting Lab CHEMISTRY & BLOOD GA S ORDERABLES Final Result [facility] [address] [place] [address] documented in this encounter Visit Diagnoses Not on filedocumented in this encounter
--- OUTSIDE RECORDS SUMMARY | 2025-06-01 15:17 | XMS_ITS | Encounter Summary ---
Author Organization [facility] Address [address] [facility] [address] [place] [address] Phone Care Team Providers Care Sound Technician Supervisor Name Role Phone Martha Grissom RADIATOR TESTER Primary Care Provider [phone] Rod Forbes MD Unavailable [phone] Bell Gil CNP Unavailable Yas Tejeda RADIATOR TESTER Unavailable [phone] Srikanth Landa MD Primary Care Provider [phone] Encounter Details Date Type Department Care Team (Late st Contact Info) Description 05/05/2022 Procedure Pass [address] [address] Social History Tobacco Use Types Packs/Day Years Used Date Smoking Tobacco: Never Assessed Comments Unknown Sex and Gender Information Value Date Recorded Sex Assigned at Female 06/18/2022 11:18 AM EST Legal Sex Female 8:51 AM EDT Gender Identity Female 06/18/2022 11:18 AM EST Sexual Orientation Straight 06/18/2022 11 :18 AM EST documented as of this encounter Plan of Treatment Upcoming Encounters Date Type Department Care Team (Late st Contact Info) Description 03/05/[address] [address] 03/05/[address] [address] 07/24/2025 1:45 PM EST Office Visit [facility] General Surgical Care [address] [place] [address] Sarah Bean MD 15 [facility], 2nd [place] [address] 08/30/2025 2:30 PM EST Appointment [facility], Ct Scan - [address] [address] Rod Forbes MD [address] [place] [address] 09/06/2025 1:40 PM EST Appointment [facility] [address] [place] [address] Rod Forbes MD [address] [place] [address] 09/06/2025 2:40 PM EST Office Visit [facility] at [address] [address] Rod Forbes MD [address] [place] [address] documented as of this encounter Visit Diagnoses Not on filedocumented in this encounter Care Teams Sound Technician Supervisor Relationship Specialty Start Date End Date Martha Grissom NP [address] [place] [address] PCP - General 04/24/22 06/12/24 Srikanth Landa MD [address] [place] [address] PCP - General Family Medicine 06/13/24 Rod Forbes MD 30 [place] [address] [email or web address] Primary Oncologist Medical Oncology 04/24/22 Bell Gil CNP 30 [place] [address] [email or web address] Nurse Practitioner Medical Oncology 05/18/22 Yas Tejeda NP [address] [place] [address] [email or web address] Nurse Practitioner Medical Oncology 07/09/22 02/27/25 documented as of this encounter Additional Source Comments The information contained in this document represents components of the legal health record. It is not the complete legal health record.[facility]
--- OUTSIDE RECORDS SUMMARY | 2025-06-01 15:17 | XMS_ITS | Encounter Summary ---
Author Organization [facility] Address [address] [facility] [address] [place] [address] Phone Care Team Providers Care Construction Pit Worker Name Role Phone Martha Grissom SECURITY AND COMPLIANCE ANALYST Primary Care Provider [phone] Rod Forbes MD Unavailable [phone] Bell Gil COOKY PACKER Unavailable Yas Tejeda SECURITY AND COMPLIANCE ANALYST Unavailable [phone] Srikanth Landa MD Primary Care Provider [phone] Encounter Details Date Type Department Care Team (Late st Contact Info) Description 11/18/2023 Procedure Pass [facility], Ct Scan - [address] [address] Social History Tobacco Use Types Packs/Day Years [...] st Contact Info) Description 03/05/2025 Procedure Pass [address] [address] 03/05/2025 Procedure Pass [address] [address] 07/24/2025 1:45 PM EST Office Visit [facility] General Surgical Care [address] [place] [address] Sarah Bean MD [address] [place] [address], 2nd [place] [address] 08/30/2025 2:30 PM EST Appointment [address] [address] Rod Forbes MD [address] [place] [address] [email or web address] 09/06/2025 1:40 PM EST Appointment [facility] [address] [place] [address] Rod Forbes MD [address] [place] [address] 09/06/2025 2:40 PM EST Office Visit [facility] at [address] [address] Rod Forbes MD [address] [place] [address] documented as of this encounter Visit Diagnoses Not on filedocumented in this encounter Care Teams Construction Pit Worker Relationship Specialty Start Date End Date Martha Grissom NP [address] [place] [address] PCP - General 04/24/22 06/12/24 Srikanth Landa MD [address] [place], [place] [address] PCP - General Family Medicine 06/13/24 Rod Forbes MD 30 [place] [address] [email or web address] Primary Oncologist Medical Oncology 04/24/22 Bell Gil CNP 30 [place] [address] Nurse Practitioner Medical Oncology 05/18/22 Yas Tejeda NP [address] [place] [address] [email or web address] Nurse Practitioner Medical Oncology 07/09/22 02/27/25 documented as of this encounter Additional Source Comments The information contained in this document represents components of the legal health record. It is not the complete legal health record.[facility]
--- OUTSIDE RECORDS SUMMARY | 2025-06-01 15:17 | XMS_ITS | Encounter Summary ---
Author Organization [facility] Address [address] [address] Phone Care Team Providers Care Road Roller Operator Name Role Phone Martha Grissom NP Primary Care Provider [phone] Rod Forbes MD Unavailable [phone] Bell Gil SENIOR SHIPPING CLERK Unavailable Yas Tejeda JOURNEYMAN MECHANIC Unavailable [phone] Srikanth Landa MD Primary Care Provider [phone] Reason for Referral * MRI/CAT Scan - Closed Specialty Diagnoses / Procedures Referred By Estella menezes Referred To Contact Radiology Diagnoses Abnormal LFTs Procedures MRI Cholangiopancreatography (MRCP) Leonila Valles NP [address] [place] [address] Phone: tel: fax: Referral ID Status Reason Start Date Expiration Date Visits Re quested Visits Authorized [id number] Closed 03/20/2024 03/20/2025 1 1 Encounter Details Date Type Department Care Team (Latest Contact Info) Description 03/20/2024 Transcribe Orders Virtual Department 30 [place] [address] Leonila Valles NP [address] [place] [address] Abnormal LFTs (Primary Dx) Social History Tobacco Use Types [...] st Contact Info) Description 03/05/2025 Procedure Pass [address] [address] 03/05/2025 Procedure Pass [address] [address] 07/24/2025 1:45 PM EST Office Visit [facility] General Surgical Care [address] [place] [address] Sarah Bean MD [address] [place] [address], 2[address] [place] [address] 08/30/2025 2:30 PM EST Appointment [address] [address] Rod Forbes MD [address] [place] [address] 09/06/2025 1:40 PM EST Appointment [facility] [address] [place] [address] Rod Forbes MD 30 [place] [address] [email or web address] 09/06/2025 2:40 PM EST Office Visit [facility] [address] [place] [address] Rod Forbes MD 30 [place] [address] [email or web address] documented as of this encounter Results * MRI CHOLANGIOPANCREATOGRAPHY (MRCP) WITH AND WITHOUT CONTRAST (04/22/2024 10:44 AM EDT) Anatomical Region Laterality Modality Pancreas, Biliary Magnetic Reson ance 04/26/2024 2:29 PM EDT Impressions 04/26/2024 2:38 PM EDT 1. Dilated intra-hepatic bile ducts. Dilated common hepatic ducts and upper and mid CBD. There is smooth tapering to normal caliber lower CBD. No identifiable obstructing lesion or suspicious bile duct wall enhancement. No choledocholithiasis. Findings may be physiologic reservoir effect after cholecystectomy. Sphincter of Oddi dysfunction is also a possibility. Please correlate with appropriate laboratory values and any symptoms that may be attributed to biliary colic. Narrative 04/26/2024 2:38 PM EDT MRI CHOLANGIOPANCREATOGRAPHY (MRCP) WITH AND WITHOUT CONTRAST INDICATION: Biliary ductal dilatation. TECHNIQUE: Multiplanar MR imaging of the abdomen was performed using T1, T2, fat saturated, and diffusion weighted techniques. 2D and 3D MRCP sequences were performed. Dynamic multiphase imaging was also performed after administration of an intravenous gadolinium contrast agent. COMPARISON: CT abdomen and pelvis with contrast from February 07, 2024. Localization CTs from 09/17/2022 PET/CT and 04/01/2023 PET/CT. FINDINGS: Liver: No focal lesion. No hepatomegaly. Biliary: Cholecystectomy. The lower CBD diameter is 5 mm. The mid and upper CBD is dilated to 10 mm. The right and left hepatic ducts in the right lobe central intrahepatic ducts in the left lobe central intrahepatic ducts are moderately dilated. There is no choledocholithiasis. The degree of intrahepatic ductal dilatation is grossly similar to September [address] No abnormal contrast enhancement along the biliary tree. No periampullary mass. Spleen: Normal. Pancreas: No suspicious lesion. No ductal dilatation. Adrenal Glands: Normal. Kidneys/Ureters: No suspicious lesion. Tiny renal cysts. No hydronephrosis. Bowel: No obstruction. Large amount of stool in the colon. Peritoneum/Retroperitoneum: No free fluid. Lymph Nodes: Normal. Vessels: No acute abnormality. Bones/Soft Tissues: No suspicious lesion. Procedure Note Rickey Stevenson MD - 04/26/2024 MRI CHOLANGIOPANCREATOGRAPHY (MRCP) WITH AND WITHOUT CONTRAST INDICATION: Biliary ductal dilatation. TECHNIQUE: Multiplanar MR imaging of the abdomen was performed using T1,T2, fat saturated, and diffusion weighted techniques. 2D and 3D MRCPsequences were performed. Dynamic multiphase imaging was also performedafter administration of an intravenous gadolinium contrast agent. COMPARISON: CT abdomen and pelvis with contrast from February 07, 2024.Localization CTs from 09/17/2022 PET/CT and 04/01/2023 PET/CT. FINDINGS: Liver: No focal lesion. No hepatomegaly. Biliary: Cholecystectomy. The lower CBD diameter is 5 mm. The mid andupper CBD is dilated to 10 mm. The right and left hepatic ducts in theright lobe central intrahepatic ducts in the left lobe centralintrahepatic ducts are moderately dilated. There is nocholedocholithiasis. The degree of intrahepatic ductal dilatation isgrossly similar to September [address] No abnormalcontrast enhancement along the biliary tree. No periampullary mass. Spleen: Normal. Pancreas: No suspicious lesion. No ductal dilatation. Adrenal Glands: Normal. Kidneys/Ureters: No suspicious lesion. Tiny renal cysts. Nohydronephrosis. Bowel: No obstruction. Large amount of stool in the colon. Peritoneum/Retroperitoneum: No free fluid. Lymph Nodes: Normal. Vessels: No acute abnormality. Bones/Soft Tissues: No suspicious lesion. IMPRESSION: 1. Dilated intra-hepatic bile ducts. Dilated common hepatic ducts andupper and mid CBD. There is smooth tapering to normal caliber lower CBD.No identifiable obstructing lesion or suspicious bile duct wallenhancement. No choledocholithiasis. Findings may be physiologic reservoireffect after cholecystectomy. Sphincter of Oddi dysfunction is also apossibility. Please correlate with appropriate laboratory values and anysymptoms that may be attributed to biliary colic. us Leonila Valles JOURNEYMAN MECHANIC IMG MR ABDOMEN Final Res ult documented in this encounter Visit Diagnoses Diagnosis Abnormal LFTs- Primary Abnormal LFTs documented in this encounter Care Teams Road Roller Operator Relationship Specialty Start Date End Date Martha Grissom NP [address] [place] [address] PCP - General 04/24/22 06/12/24 Srikanth Landa MD [address] [place], [place] [address] PCP - General Family Medicine 06/13/24 Rod Forbes MD [address] [place] [address] [email or web address] Primary Oncologist Medical Oncology 04/24/22 Bell Gil CNP [address] [place] [address] Nurse Practitioner Medical Oncology 05/18/22 Yas Tejeda NP [address] [place] [address] Nurse Practitioner Medical Oncology 07/09/22 02/27/25 documented as of this encounter Additional Source Comments The information contained in this document represents components of the legal health record. It is not the complete legal health record.[facility]
--- OUTSIDE RECORDS SUMMARY | 2025-06-01 15:17 | XMS_ITS | Encounter Summary ---
Author Organization [facility] Address [address] [facility] [address] [place] [address] Phone Care Team Providers Care Rate Analyst Name Role Phone Martha Grissom DREDGE RUNNER Primary Care Provider [phone] Rod Forbes MD Unavailable [phone] Bell Gil SKI MAKER WOOD Unavailable Yas Tejeda DREDGE RUNNER Unavailable [phone] Srikanth Landa MD Primary Care Provider [phone] Encounter Details Date Type Department Care Team (Late st Contact Info) Description 09/28/2023 Prep for Surgery [facility] General Surgical Care [address] [place] [address] Sarah Bean MD 15 [facility], 2nd [place] [address] [email or web address] Mass of anus (Primary Dx); Anal cancer Social History Tobacco Use Types Packs/Day Years Used Date Smoking Tobacco: Former Smokeless Tobacco: Never Alcohol Use Standard Drinks/Week Comments Not Currently 0 (1 standard drink = 0.6 oz [...] a working camera? Not on file Comments Unknown Sex and Gender Information Value Date Recorded Sex Assigned at Female 06/18/2022 11:18 AM EST Legal Sex Female 8:51 AM EDT Gender Identity Female 06/18/2022 11:18 AM EST Sexual Orientation Straight 06/18/2022 11 :18 AM EST documented as of this encounter Plan of Treatment Upcoming Encounters Date Type Department Care Team (Late st Contact Info) Description 03/05/2025 Procedure Pass [address] [address] 03/05/[address] [address] 07/24/2025 1:45 PM EST Office Visit [facility] General Surgical Care [address] [place] [address] Sarah Bean MD [address] [place] [address], 2nd [place] [address] 08/30/2025 2:30 PM EST Appointment [address] [address] Rod Forbes MD [address] [place] [address] 09/06/2025 1:40 PM EST Appointment [facility] [address] [place] [address] Rod Forbes MD [address] [place] [address] [phone] 09/06/2025 2:40 PM EST Office Visit [facility] at [address] [address] Rod Forbes MD [address] [place] [address] [email or web address] documented as of this encounter Visit Diagnoses Diagnosis 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, unspecified site documented in this encounter Care Teams Rate Analyst Relationship Specialty Start Date End Date Martha Grissom NP [address] [place], [place] [address] PCP - General 04/24/22 06/12/24 Srikanth Landa MD [address] [place] [address] PCP - General Family Medicine 06/13/24 Rod Forbes MD 30 [place] [address] [email or web address] Primary Oncologist Medical Oncology 04/24/22 Bell Gil CNP 30 [place] [address] [email or web address] Nurse Practitioner Medical Oncology 05/18/22 Yas Tejeda NP [address] [place] [address] [email or web address] Nurse Practitioner Medical Oncology 07/09/22 02/27/25 documented as of this encounter Additional Source Comments The information contained in this document represents components of the legal health record. It is not the complete legal health record.[facility]
--- OUTSIDE RECORDS SUMMARY | 2025-06-01 15:17 | XMS_ITS | Encounter Summary ---
Author Organization [facility] Address [address] [facility] [address] [place] [address] Phone Care Team Providers Care Sea Air Land Officer Name Role Phone Martha Grissom CSW Primary Care Provider [phone] Rod Forbes MD Unavailable [phone] Bell Gil PRIMARY CARE PHYSICIAN Unavailable Yas Tejeda CSW Unavailable [phone] Srikanth Landa MD Primary Care Provider [phone] Encounter Details Date Type Department Care Team (Late st Contact Info) Description 11/08/2023 Procedure Pass OR Admitting Dept - Virtual Department [address] [place] [address] Social History Tobacco Use Types Packs/Day Years [...] st Contact Info) Description 03/05/2025 Procedure Pass [address] [address] 03/05/2025 Procedure Pass [address] [address] 07/24/2025 1:45 PM EST Office Visit [facility] General Surgical Care [address] [place] [address] Sarah Bean MD [address] [place] [address], 2nd [place] [address] 08/30/2025 2:30 PM EST Appointment [address] [address] Rod Forbes MD [address] [place] [address] 09/06/2025 1:40 PM EST Appointment [facility] [address] [place] [address] Rod Forbes MD [address] [place] [address] 09/06/2025 2:40 PM EST Office Visit [facility] at [address] [address] Rod Forbes MD [address] [place] [address] documented as of this encounter Visit Diagnoses Not on filedocumented in this encounter Care Teams Sea Air Land Officer Relationship Specialty Start Date End Date Martha Grissom NP [address] [place] [address] PCP - General 04/24/22 06/12/24 Srikanth Landa MD [address] [place] [address] PCP - General Family Medicine 06/13/24 Rod Forbes MD 30 [place] [address] [email or web address] Primary Oncologist Medical Oncology 04/24/22 Bell Gil CNP 30 [place] [address] Nurse Practitioner Medical Oncology 05/18/22 Yas Tejeda NP [address] [place] [address] Nurse Practitioner Medical Oncology 07/09/22 02/27/25 documented as of this encounter Additional Source Comments The information contained in this document represents components of the legal health record. It is not the complete legal health record.[facility]
--- OUTSIDE RECORDS SUMMARY | 2025-06-01 15:17 | XMS_ITS | Encounter Summary ---
Author Organization [facility] Address [address] [facility] [address] [place] [address] Phone Care Team Providers Care Wireless Operator Name Role Phone Martha Grissom SLOT ROUTER Primary Care Provider [phone] Rod Forbes MD Unavailable [phone] Bell Gil KILN MECHANIC Unavailable Yas Tejeda SLOT ROUTER Unavailable [phone] Srikanth Landa MD Primary Care Provider [phone] Encounter Details Date Type Department Care Team (Late st Contact Info) Description 11/18/2023 Procedure Pass [facility], Ct Scan - [address] [address] Social History Tobacco Use Types Packs/Day Years [...] st Contact Info) Description 03/05/2025 Procedure Pass [address] [address] 03/05/2025 Procedure Pass [address] [address] 07/24/2025 1:45 PM EST Office Visit [facility] General Surgical Care [address] [place] [address] Sarah Bean MD [address] [place] [address], 2[address] [place] [address] 08/30/2025 2:30 PM EST Appointment [address] [address] Rod Forbes MD [address] [place] [address] [email or web address] 09/06/2025 1:40 PM EST Appointment [facility] [address] [place] [address] Rod Forbes MD [address] [place] [address] 09/06/2025 2:40 PM EST Office Visit [facility] at [address] [address] Rod Forbes MD [address] [place] [address] documented as of this encounter Visit Diagnoses Not on filedocumented in this encounter Care Teams Wireless Operator Relationship Specialty Start Date End Date Martha Grissom NP [address] [place] [address] PCP - General 04/24/22 06/12/24 Srikanth Landa MD [address]) [place], [place] [address] PCP - General Family Medicine 06/13/24 Rod Forbes MD 30 [place] [address] [email or web address] Primary Oncologist Medical Oncology 04/24/22 Bell Gil CNP 30 [place] [address] Nurse Practitioner Medical Oncology 05/18/22 Yas Tejeda NP [address] [place] [address] [email or web address] Nurse Practitioner Medical Oncology 07/09/22 02/27/25 documented as of this encounter Additional Source Comments The information contained in this document represents components of the legal health record. It is not the complete legal health record.[facility]
--- OUTSIDE RECORDS SUMMARY | 2025-06-01 15:17 | XMS_ITS | Encounter Summary ---
Author Organization [facility] Address [address] [facility] [address] [place] [address] Phone Care Team Providers Care Lubricating Machine Tender Name Role Phone Martha Grissom TISSUE REWINDER Primary Care Provider [phone] Rod Forbes MD Unavailable [phone] Bell Gil OBSTETRIC ANAESTHETIST Unavailable Yas Tejeda TISSUE REWINDER Unavailable [phone] Srikanth Landa MD Primary Care Provider [phone] Reason for Visit * Reason Comments Medication Refill Encounter Details Date Type Department Care Team (Late st Contact Info) Description 06/28/2022 Refill [facility] Rad Onc [address] [place] [address] Judy James MD [address] [place] [address] [email or web address] Medication Refill Social History Tobacco Use Types Packs/Day Years Used Date Smoking Tobacco: Former Smokeless Tobacco: Never Alcohol Use Standard Drinks/Week Comments Not Currently 0 (1 standard drink = 0.6 oz pur e alcohol) Comments Unknown Sex and Gender Information Value Date Recorded Sex Assigned at Female 06/18/2022 11:18 AM EST Legal Sex Female 8:51 AM EDT Gender Identity Female 06/18/2022 11:18 AM EST Sexual Orientation Straight 06/18/2022 11 :18 AM EST documented as of this encounter Plan of Treatment Upcoming Encounters Date Type Department Care Team (Late st Contact Info) Description 03/05/2025 Procedure Pass [address] [address] 03/05/2025 Procedure Pass [address] [address] 07/24/2025 1:45 PM EST Office Visit [facility] General Surgical Care [address] [place] [address] Sarah Bean MD [address] [place] [address], 2nd [place] [address] 08/30/2025 2:30 PM EST Appointment [address] [address] Rod Forbes MD [address] [place] [address] 09/06/2025 1:40 PM EST Appointment [facility] [address] [place] [address] Rod Forbes MD [address] [place] [address] [phone] 09/06/2025 2:40 PM EST Office Visit [facility] at [address] [address] Rod Forbes MD [address] [place] [phone] documented as of this encounter Visit Diagnoses Not on filedocumented in this encounter Care Teams Lubricating Machine Tender Relationship Specialty Start Date End Date Martha Grissom NP [address] [place] [address] PCP - General 04/24/22 06/12/24 Srikanth Landa MD [address] [place] [address] PCP - General Family Medicine 06/13/24 Rod Forbes MD 30 [place] [address] Primary Oncologist Medical Oncology 04/24/22 Bell Gil CNP [address] [place] [address] Nurse Practitioner Medical Oncology 05/18/22 Yas Tejeda NP [address] [place] [address] Nurse Practitioner Medical Oncology 07/09/22 02/27/25 documented as of this encounter Additional Source Comments The information contained in this document represents components of the legal health record. It is not the complete legal health record.[facility]
--- OUTSIDE RECORDS SUMMARY | 2025-06-01 15:17 | XMS_ITS | Encounter Summary ---
Author Organization [facility] Address [address] [id number] Care Team Providers Care Gathering Worker Name Role Phone Joi Yeung MD Primary Care Provider [phone] Chantal Ocasio MD Primary Care Provider Unavailab le Unknown Pcp, Non Rmg Primary Care Provider Unava ilable Fatou Bruner MD Primary Care Provider [phone] Encounter Details Date Type Department Care Team (Late st Contact Info) Description 02/26/2009 Orders Only [facility] [address] [place] [address] Joi Yeung MD [address] [place] [address] Social History Tobacco Use Types Packs/Day Years [...] as of this encounter Progress Notes * Joi Yeung MD - 02/27/2009 9:44 PM EDTQuick Note: All lab results discussed with pt this am and patient advised to go to [facility] as direct admit. documented in this encounter Plan of Treatment Not on file documented as of this encounter Procedures * Due to [place] state law, this organization might not be sharing negative HIV tests. Procedure Name Priority Date/Time Associated Diagnosis Comments BASIC METABOLIC PANEL W/GLOMERULAR FILTRATION RATE (EGFR) STAT (All results called to provider) 02/26/2009 Abdominal Pain LDH STAT (All results called to provider) 02/26/2009 SED RATE ESR STAT (All results called to provider) 02/26/2009 Abdominal Pain CBC 5 PART DIFF STAT (All results called to provider) 02/26/2009 Abdominal Pain GAMMA GLUTAMYLTRANSFERASE (GGT), SERUM STAT (All results called to provider) 02/26/2009 URINALYSIS, COMPLETE (DIP & MICRO) STAT (All results called to provider) 02/26/2009 Abdominal Pain HEPATIC FUNCTION PANEL STAT (All results called to provider) 02/26/2009 Abdominal Pain HEPATITIS PANEL, ACUTE STAT (All results called to provider) 02/26/2009 Abdominal Pain documented in this encounter Results * Due to [place] state law, this organization might not be sharing negative HIV tests. * (ABNORMAL) GAMMA GLUTAMYLTRANSFERASE (GGT), SERUM (02/26/2009) GGT (GAMMA GLUTAMYL TRANSFERASE) 122(H) 3 - 65 U/L [facility] 02/26/2009 02/26/2009 2:2 3 PM EDT us Joi Yeung MD LABORATORY Final Result [facility] [address] [place] [address] * LDH (02/26/2009) LDH 155 120 - 250 U/L [facility] 02/26/2009 02/26/2009 2:2 3 PM EDT Joi Yeung MD LABORATORY Final Result Performing Organization Address [facility]/ZIP Co de Phone Number [facility] [address] [place] [address] * (ABNORMAL) URINALYSIS, COMPLETE (DIP & MICRO) (02/26/2009) COLOR (URINE) YELLOW YELLOW [facility] APPEARANCE (URINE) CLOUDY(A) CLEAR [facility] SPECIFIC GRAVITY 1.020 1.001 - 1.035 [facility] PH (URINE) 5.5 5.0 - 8.0 [facility] PROTEIN (URINE) 2+(A) [facility] GLUCOSE (URINE) NEG NEG [facility] Ketones (Urine) 3+(A) NEG [facility] BILIRUBIN (URINE) NEG NEG [facility] BLOOD (URINE) 1+(A) NEG [facility] WBC (URINE) NEG NEG [facility] NITRITE (URINE) NEG NEG [facility] WBC (URINE) 0-4 0-4/HPF [facility] RBC (Urine Sed) 0 0-3/HPF [facility] EPITHELIAL CELLS.SQUAMOUS (URINE SED) 0 0-5/HPF [facility] EPITHELIAL CELLS.TRANSITIO NAL (URINE SED) 0 0-5/HPF [facility] EPITHELIAL CELLS.RENAL (URINE SED) 0 0-3/HPF [facility] BACTERIA (URINE) FEW(A) NONE SEEN [facility] HYALINE CASTS (URINE) 1-3(A) 0 - 1 [facility] Granular Casts (Urine Sed) 4-5(A) 0 [facility] Microscopic Other (Urine) MODERATE MUCOUS(A) [facility] URINE CRYSTALS MODERATE AMORPHOUS [facility] 02/26/2009 02/26/2009 2:2 3 PM EDT Joi Yeung MD LAB SAME DAY RESULT Final Res ult Performing Organization Address City/[facility]/ZIP Co de Phone Number [facility] [address] [place] [address] * HEPATITIS PANEL, ACUTE (02/26/2009) Pathologist [facility] HEPATITIS B SURFACE ANTIGEN NEUTRALIZATION NON-REACT GLYNN NON-REACT GLYNN [facility] HEPATITIS C AB NON-REACT GLYNN NON-REACT GLYNN [facility] HEPATITIS A AB.IGM NON-REACT GLYNN NON-REACT GLYNN [facility] HEPATITIS B CORE AB.IGM NON-REACT GLYNN NON-REACT GLYNN [facility] 02/26/2009 02/26/2009 2:2 3 PM EDT us Joi Yeung MD LABORATORY Final Result Performing Organization Address [facility] Co de Phone Number [facility] [address] [place] [address] * (ABNORMAL) SED RATE ESR (02/26/2009) [facility] ESR (ERYTHROCYTE SEDIMENTATION RATE) 75(H) 0 - 30 MM/HR [facility] 02/26/2009 02/26/2009 2:2 3 PM EDT us Joi Yeung MD LAB SAME DAY RESULT Final Res ult Performing Organization Address [facility] de Phone Number [facility] [address] [place] [address] * (ABNORMAL) HEPATIC FUNCTION PANEL (02/26/2009) [facility] Total Protein 6.7 6.2 - 8.3 G/DL [facility] ALBUMIN 3.1(L) 3.2 - 4.6 G/DL [facility] GLOBULIN 3.6 2.2 - 3.9 G/DL [facility] ALBUMIN/GLOBULIN RATIO 0.9(L) 1.0 - 2.1 [facility] BILIRUBIN TOTAL 2.3(H) 0.2 - 1.2 MG/DL [facility] BILIRUBIN DIRECT 0.6(H) 0 - 0.3 MG/DL [facility] ALKALINE PHOSPHATASE 126 33 - 130 U/L [facility] AST (SGOT) 31 10 - 35 U/L [facility] ALT (SGPT) 61(H) 6 - 40 U/L [facility] 02/26/2009 02/26/2009 2:2 3 PM EDT us Joi Yeung MD LABORATORY Final Result Performing Organization Address [facility] de Phone Number [facility] [address] [place] [address] * (ABNORMAL) BASIC METABOLIC PANEL W/GLOMERULAR FILTRATION RATE (EGFR) (02/26/2009) Pathologist [facility] CALCIUM 9.0 8.6 - 10.2 MG/DL [facility] BUN 18 7 - 25 MG/DL [facility] CREATININE 1.04 0.60 - 1.18 MG/DL [facility] Glucose 97 65 - 99 MG/DL [facility] SODIUM 136 135 - 146 MMOL/L [facility] POTASSIUM 3.6 3.5 - 5.3 MMOL/L [facility] CHLORIDE 97(L) 98 - 110 MMOL/L [facility] CARBON DIOXIDE 31 21 - 33 MMOL/L [facility] GFR 54(L) 60 AND ABOVE [facility] Comment:UNITS: ML/MIN/1.73 S Q METERS EGFR > 60 60 AND ABOVE [facility] Comment:UNITS: ML/MIN/1.73 S Q METERS 02/26/2009 02/26/2009 2:2 3 PM EDT Narrative [facility] - 02/26/2009 2:59 PM EDT Please note that this estimated [...] with more precise needs for GFR calculation. [facility] Gamal NOVAK LABORATORY Final Result Performing Organization Address [facility] de Phone Number [facility] [address] [place] [address] * (ABNORMAL) CBC 5 PART DIFF (02/26/2009) Pathologist [facility] WHITE BLOOD COUNT 9.1 3.8 - 10.8 THOUS/UL [facility] RBC 4.28 3.80 - 5.10 MIL/UL [facility] Hemoglobin 13.4 11.7 - 15.5 G/DL [facility] HCT (HEMATOCRIT) 39.6 35.0 - 45.0 % [facility] MCV 92.4 80.0 - 100.0 FL [facility] MCH 31.3 27.0 - 33.0 PG [facility] MCHC 33.9 32.0 - 36.0 G/DL [facility] BAND % 0 0 - 5 % [facility] NEUTROPHIL % 85(H) 48 - 75 % [facility] LYMPHOCYTE % 5(L) 17 - 40 % [facility] MONOCYTE % 8 0 - 14 % [facility] EOSINOPHIL % 1 0 - 5 % [facility] BASOPHIL % 1 0 - 3 % [facility] ATYPICAL LYMPHOCYTE % 0 0 - 5 % [facility] PLATELETS 190 140 - 400 THOUS/UL [facility] BANDS # 0 0 - 750 CELLS/MCL [facility] NEUTROPHILS # 7735 1500 - 7800 CELLS/MCL [facility] LYMPHOCYTES # 455(L) 850 - 3900 CELLS/MCL [facility] MONOCYTES # 728 200 - 950 CELLS/MCL [facility] EOSINOPHILS # 91 15 - 550 CELLS/MCL [facility] BASOPHILS # 91 0 - 200 CELLS/MCL [facility] ATYPICAL LYMPHOCYTES # 0 0 - 200 CELLS/MCL [facility] RDW 13.1 11.0 - 15.0 % [facility] MPV 7.8 7.5 - 11.5 FL [facility] 02/26/2009 02/26/2009 2:2 3 PM EDT us Joi Yeung MD LAB SAME DAY RESULT Final Res ult [facility] [address] [place] [address] documented in this encounter Visit Diagnoses Diagnosis Abdominal pain Abdominal pain, unspecified site documented in this encounter Care Teams Gathering Worker Relationship Specialty Start Date End Date Joi Yeung MD [address] [place] [address] PCP - General 10/31/05 09/01/11 Chantal Ocasio MD PCP - General 09/02/11 03/20/13 Unknown Pcp, Non Rmg PCP - General 03/21/13 05/13/17 Fatou Bruner MD [facility] [address] [place] [address] PCP - General Family Medicine 06/12/19 documented as of this encounter
--- OUTSIDE RECORDS SUMMARY | 2025-06-01 15:17 | XMS_ITS | Encounter Summary ---
Author Organization [facility] Address [address] [place] [address] Care Team Providers Care Contact Agent Name Role Phone Unavailable Primary Care Provider Unavailabl e Encounter Details Date Type Department Care Team (Late st Contact Info) Description 12/19/2020 Lab Requisition [facility] Pathology & Laboratory Medicine - [facility] [address] [place] [address] Outr Resulting Lab, Provider Social History Tobacco [...] Date/Time Associated Diagnosis Comments PTH INTACT Routine 12/19/2020 14:04 EDT documented in this encounter Results * PTH INTACT (12/19/2020 14:04 EDT) Intact PTH 24 19 - 88 pg/mL 12/20/2020 9:50 EDT [facility] Blood VENOUS BLOOD / Unknown 12/19/2020 14:04 EDT 12/19/2020 21:05 EDT us Provider Outr Resulting Lab CHEMISTRY & BLOOD GA S ORDERABLES Final Result [facility] [address] [place] [address] documented in this encounter Visit Diagnoses Not on filedocumented in this encounter
--- OUTSIDE RECORDS SUMMARY | 2025-06-01 15:17 | XMS_ITS | Clinical Summary ---
Author Organization [facility] Address [address] [place] [address] Care Team Providers Care Mitten Sewer Name Role Phone Unavailable Primary Care Provider Unavailabl e Social History Tobacco Use Types Packs/Day Years Used Date Smoking Tobacco: Never Assessed Interpersonal Safety Answer Date Record ed Physically Hurt Never 07/02/2020 Verbally Threaten Not on file 07/02/2020 Comments Unknown Sex and Gender Information Value Date Recorded Sex Assigned at Not on file Legal Sex Female 15:50 EDT Gender Identity Not on file Sexual Orientation Not on file Plan of Treatment Health Maintenance Due Date Last Done Comments Hepatitis C Screen 1945 Fall Risk Screening 2010 RSV Immunization ( o r 60+ Years) (1 - 1-dose 75+ series) 2020 COVID-19 Vaccine ( season) 2024
--- OUTSIDE RECORDS SUMMARY | 2025-06-01 15:17 | XMS_ITS | Encounter Summary ---
Author Organization [facility] Address [address] [place] [address] Care Team Providers Care Senior Account Clerk Name Role Phone Unavailable Primary Care Provider Unavailabl e Encounter Details Date Type Department Care Team (Late st Contact Info) Description 07/22/2021 Lab Requisition [facility] Pathology & Laboratory Medicine - [facility] [address] [place] [address] Outr Resulting Lab, Provider Social History Tobacco [...] Procedure Name Priority Date/Time Associated Diagnosis Comments VITAMIN D (25,OH) Routine 07/22/2021 13: 43 EST documented in this encounter Results * VITAMIN D (25,OH) (07/22/2021 13:43 EST) 25OH Vitamin D Tot 54 30 - 100 ng/mL 07/23/2021 10:44 EST [facility] Comment: Vitamin D 25,OH Interpretive Ranges: Deficiency: <10.0 ng/mL Insufficiency: 10.0 - 30.0 ng/mL Sufficiency: 30.0 - 100.0 ng/mL Toxicity: >100.0 ng/mL Blood VENOUS BLOOD / Unknown 07/22/2021 13:43 EST 07/22/2021 21:24 EST us Provider Outr Resulting Lab CHEMISTRY & BLOOD GA S ORDERABLES Final Result [facility] [address] [place] [address] documented in this encounter Visit Diagnoses Not on filedocumented in this encounter
--- OUTSIDE RECORDS SUMMARY | 2025-06-01 15:17 | XMS_ITS | Encounter Summary ---
Author Organization [facility] Address [address] [place] [address] Care Team Providers Care Rhic Systems Safety Engineer Name Role Phone Unavailable Primary Care Provider Unavailabl e Encounter Details Date Type Department Care Team (Late st Contact Info) Description 12/23/2020 Lab Requisition [facility] Pathology & Laboratory Medicine - [facility] [address] [place] [address] Outr Resulting Lab, Provider Social History Tobacco [...] Associated Diagnosis Comments VITAMIN D (25,OH) Routine 12/23/2020 9:44 EDT documented in this encounter Results * VITAMIN D (25,OH) (12/23/2020 9:44 EDT) 25OH Vitamin D Tot 43.6 30.0 - 100.0 ng/mL 12/24/2020 10:13 EDT [facility] Comment: Vitamin D 25,OH Interpretive Ranges: Deficiency: <10.0 ng/mL Insufficiency: 10.0 - 30.0 ng/mL Sufficiency: 30.0 - 100.0 ng/mL Toxicity: >100.0 ng/mL Blood VENOUS BLOOD / Unknown 12/23/2020 9:44 EDT 12/23/2020 21:51 EDT us Provider Outr Resulting Lab CHEMISTRY & BLOOD GA S ORDERABLES Final Result [facility] [address] [place] [address] documented in this encounter Visit Diagnoses Not on filedocumented in this encounter
--- OUTSIDE RECORDS SUMMARY | 2025-06-01 15:17 | XMS_ITS | Encounter Summary ---
Author Organization [facility] Address [address] [facility] [address] [place] [address] Phone Care Team Providers Care Towel Hemmer Name Role Phone Martha Grissom STARTER MECHANIC Primary Care Provider [phone] Rod Forbes MD Unavailable [phone] Bell Gil PALLIATIVE CARE PHYSICIAN Unavailable Yas Tejeda STARTER MECHANIC Unavailable [phone] Srikanth Landa MD Primary Care Provider [phone] Reason for Visit * Reason Comments Rad Onc discharge Anal cancer Encounter Details Date Type Department Care Team ([facility] Contact Info) Description 07/22/2022 Documentation [facility] Rad Onc [address] [place] [address] Jessenia Schmitz, [place] [address] [place] [address] Rad Onc discharge (Anal cancer) Social History Tobacco Use Types Packs/Day Years [...] Encounters Date Type Department Care Team (Late Contact Info) Description 03/05/2025 Procedure Pass [address] [address] 03/05/2025 Procedure Pass [address] [address] 07/24/2025 1:45 PM EST Office Visit [facility] General Surgical Care [address] [place] [address] Sarah Bean MD [address] [facility], 2nd [place] [address] 08/30/2025 2:30 PM EST Appointment [address] [address] Rod Forbes MD [address] [place] [address] 09/06/2025 1:40 PM EST Appointment [facility] [address] [place] [address] Rod Forbes MD [address] [place] [address] 09/06/2025 2:40 PM EST Office Visit [facility] at [address] [address] Rod Forbes MD [address] [place] [address] documented as of this encounter Visit Diagnoses Not on filedocumented in this encounter Care Teams Towel Hemmer Relationship Specialty Start Date End Date Martha Grissom NP [address] [place] [address] PCP - General 04/24/22 06/12/24 Srikanth Landa MD [address] [place] [address] PCP - General Family Medicine 06/13/24 Rod Forbes MD [address] [place] [address] Primary Oncologist Medical Oncology 04/24/22 Bell Gil CNP [address] [place] [address] Nurse Practitioner Medical Oncology 05/18/22 Yas Tejeda NP [address] [place] [address] [email or web address] Nurse Practitioner Medical Oncology 07/09/22 02/27/25 documented as of this encounter Additional Source Comments The information contained in this document represents components of the legal health record. It is not the complete legal health record.[facility]
--- OUTSIDE RECORDS SUMMARY | 2025-06-01 15:17 | XMS_ITS | Encounter Summary ---
Author Organization [facility] Address [address] [facility] [address] [place] [address] Phone Care Team Providers Care Dental Practice Manager Name Role Phone Martha Grissom WEEKEND ANCHOR Primary Care Provider [phone] Rod Forbes MD Unavailable [phone] Bell Gil GEOGRAPHICAL HISTORIAN Unavailable Yas Tejeda WEEKEND ANCHOR Unavailable [phone] Srikanth Landa MD Primary Care Provider [phone] Encounter Details Date Type Department Care Team (Late st Contact Info) Description 03/20/2024 Procedure Pass [facility], [address] [address] Social History Tobacco Use Types Packs/Day Years [...] st Contact Info) Description 03/05/2025 Procedure Pass [address] [address] 03/05/2025 Procedure Pass [address] [address] 07/24/2025 1:45 PM EST Office Visit [facility] General Surgical Care [address] [place] [address] Sarah Bean MD [address] [place] [address], 2nd [place] [address] 08/30/2025 2:30 PM EST Appointment [address] [address] Rod Forbes MD [address] [place] [address] [email or web address] 09/06/2025 1:40 PM EST Appointment [facility] [address] [place] [address] Rod Forbes MD [address] [place] [address] 09/06/2025 2:40 PM EST Office Visit [facility] at [address] [address] Rod Forbes MD [address] [place] [address] documented as of this encounter Visit Diagnoses Not on filedocumented in this encounter Care Teams Dental Practice Manager Relationship Specialty Start Date End Date Martha Grissom NP [address] [place] [address] PCP - General 04/24/22 06/12/24 Srikanth Landa MD [address] [place], [place] [address] PCP - General Family Medicine 06/13/24 Rod Forbes MD [address] [place] [address] Primary Oncologist Medical Oncology 04/24/22 Bell Gil CNP [address] [place] [address] Nurse Practitioner Medical Oncology 05/18/22 Yas Tejeda NP [address] [place] [address] Nurse Practitioner Medical Oncology 07/09/22 02/27/25 documented as of this encounter Additional Source Comments The information contained in this document represents components of the legal health record. It is not the complete legal health record.[facility]
--- OUTSIDE RECORDS SUMMARY | 2025-06-01 15:17 | XMS_ITS | Encounter Summary ---
Author Organization [facility] Address [address] [place] [address] Care Team Providers Care Federal Air Marshal Name Role Phone Unavailable Primary Care Provider Unavailabl e Encounter Details Date Type Department Care Team (Late st Contact Info) Description 08/26/2022 Lab Requisition [facility] Pathology & Laboratory Medicine - [facility] [address] [place] [address] Outr Resulting Lab, Provider Social History Tobacco [...] Associated Diagnosis Comments VITAMIN D (25,OH) Routine 08/26/2022 10: 15 EST documented in this encounter Results * VITAMIN D (25,OH) (08/26/2022 10:15 EST) 25OH Vitamin D Tot 58 30 - 100 ng/mL 08/27/2022 10:16 EST [facility] Comment: Vitamin D 25,OH Interpretive Ranges: Deficiency: <10.0 ng/mL Insufficiency: 10.0 - 30.0 ng/mL Sufficiency: 30.0 - 100.0 ng/mL Toxicity: >100.0 ng/mL Blood VENOUS BLOOD / Unknown 08/26/2022 10:15 EST 08/26/2022 21:11 EST us Provider Outr Resulting Lab CHEMISTRY & BLOOD GA S ORDERABLES Final Result [facility] [address] [place] [address] documented in this encounter Visit Diagnoses Not on filedocumented in this encounter
--- OUTSIDE RECORDS SUMMARY | 2025-06-01 15:17 | XMS_ITS | Encounter Summary ---
Author Organization [facility] Address [address] [place] [address] Care Team Providers Care Power Transformer Assembler Name Role Phone Unavailable Primary Care Provider Unavailabl e Encounter Details Date Type Department Care Team (Late st Contact Info) Description 01/02/2020 Lab Requisition [facility] Pathology & Laboratory Medicine - [facility] [address] [place] [address] Outr Resulting Lab, Provider Social History Tobacco [...] Associated Diagnosis Comments VITAMIN D (25,OH) Routine 01/02/2020 13: 48 EDT documented in this encounter Results * VITAMIN D (25,OH) (01/02/2020 13:48 EDT) 25OH Vitamin D Tot 31.3 30.0 - 100.0 ng/mL 01/03/2020 12:27 EDT [facility] Comment: Vitamin D 25,OH Interpretive Ranges: Deficiency: <10.0 ng/mL Insufficiency: 10.0 - 30.0 ng/mL Sufficiency: 30.0 - 100.0 ng/mL Toxicity: >100.0 ng/mL Blood VENOUS BLOOD / Unknown 01/02/2020 13:48 EDT 01/02/2020 21:28 EDT us Provider Outr Resulting Lab CHEMISTRY & BLOOD GA S ORDERABLES Final Result [facility] [address] [place] [address] documented in this encounter Visit Diagnoses Not on filedocumented in this encounter
--- OUTSIDE RECORDS SUMMARY | 2025-06-01 15:17 | XMS_ITS | Encounter Summary ---
Author Organization [facility] Address [address] [place] [address] Care Team Providers Care It Administrative Assistant Name Role Phone Unavailable Primary Care Provider Unavailabl e Encounter Details Date Type Department Care Team (Late st Contact Info) Description 01/20/2022 Lab Requisition [facility] Pathology & Laboratory Medicine - [facility] [address] [place] [address] Outr Resulting Lab, Provider Social History Tobacco [...] Associated Diagnosis Comments VITAMIN D (25,OH) Routine 01/20/2022 11: 21 EDT documented in this encounter Results * VITAMIN D (25,OH) (01/20/2022 11:21 EDT) 25OH Vitamin D Tot 54 30 - 100 ng/mL 01/21/2022 12:30 EDT [facility] Comment: Vitamin D 25,OH Interpretive Ranges: Deficiency: <10.0 ng/mL Insufficiency: 10.0 - 30.0 ng/mL Sufficiency: 30.0 - 100.0 ng/mL Toxicity: >100.0 ng/mL Blood VENOUS BLOOD / Unknown 01/20/2022 11:21 EDT 01/20/2022 21:42 EDT us Provider Outr Resulting Lab CHEMISTRY & BLOOD GA S ORDERABLES Final Result [facility] [address] [place] [address] documented in this encounter Visit Diagnoses Not on filedocumented in this encounter
--- OUTSIDE RECORDS SUMMARY | 2025-06-01 15:17 | XMS_ITS | Encounter Summary ---
Author Organization Health system Address [address] [place] [address] Care Team Providers Care Manager Wind Name Role Phone Unavailable Primary Care Provider Unavailabl e Encounter Details Date Type Department Care Team (Late st Contact Info) Description 03/26/2023 Lab Requisition [facility] Pathology & Laboratory Medicine - [facility] [address] [place] [address] Outr Resulting Lab, Provider Social History Tobacco [...] Associated Diagnosis Comments VITAMIN D (25,OH) Routine 03/26/2023 11: 57 EDT documented in this encounter Results * VITAMIN D (25,OH) (03/26/2023 11:57 EDT) 25OH Vitamin D Tot 50 30 - 100 ng/mL 03/29/2023 12:28 EDT [facility] Comment: Vitamin D 25,OH Interpretive Ranges: Deficiency: <10.0 ng/mL Insufficiency: 10.0 - 30.0 ng/mL Sufficiency: 30.0 - 100.0 ng/mL Toxicity: >100.0 ng/mL Blood VENOUS BLOOD / Unknown 03/26/2023 11:57 EDT 03/26/2023 21:11 EDT us Provider Outr Resulting Lab CHEMISTRY & BLOOD GA S ORDERABLES Final Result [facility] [address] [place] [address] documented in this encounter Visit Diagnoses Not on filedocumented in this encounter
--- OUTSIDE RECORDS SUMMARY | 2025-06-01 15:17 | XMS_ITS | Encounter Summary ---
Author Organization [facility] Address [address] [place] [address] Care Team Providers Care Market Research Worker Name Role Phone Unavailable Primary Care Provider Unavailabl e Encounter Details Date Type Department Care Team (Late st Contact Info) Description 07/11/2020 Lab Requisition [facility] [address] [place] [address] Outr Resulting Lab, Provider Social History Tobacco [...] Associated Diagnosis Comments VITAMIN D (25,OH) Routine 07/11/2020 11: 42 EST documented in this encounter Results * (ABNORMAL) VITAMIN D (25,OH) (07/11/2020 11:42 EST) 25OH Vitamin D Tot 27.6(L) 30.0 - 100.0 ng/mL 07/12/2020 10:47 EST [facility] Comment: Vitamin D 25,OH Interpretive Ranges: Deficiency: <10.0 ng/mL Insufficiency: 10.0 - 30.0 ng/mL Sufficiency: 30.0 - 100.0 ng/mL Toxicity: >100.0 ng/mL Blood VENOUS BLOOD / Unknown 07/11/2020 11:42 EST 07/11/2020 21:37 EST us Provider Outr Resulting Lab CHEMISTRY & BLOOD GA S ORDERABLES Final Result Performing Organization Address City/State/[facility] Co de Phone Number [facility] [address] [place] [address] documented in this encounter Visit Diagnoses Not on filedocumented in this encounter
== END 2025-06-01 14:12 | disposition home or self-care (01) ==
LOC: HO.HMCFM 13:15
PROVIDERS: PCP Internal Medicine; Visit Provider Internal Medicine
DX: F33.1 Major depressive disorder, recurrent, moderate (principal); I10 Essential (primary) hypertension; Z85.048 Personal history of other malignant neoplasm of rectum, rectosigmoid junction, and anus; M81.0 Age-related osteoporosis without current pathological fracture

== ENCOUNTER 2025-06-01 13:14 | Outpatient (REF) | payer MEDICARE, SELFPAY ==
[2025-06-01 18:29] LABS: MANUAL DIFF FLAG NO
[2025-06-01 18:30] LABS: Hematocrit 37.9 % (37.0-47.0); Hemoglobin 12.3 g/dl (12.0-16.0); Imm Gran Abs Auto 0.02 X10*3/uL (0.00-0.03); Imm Gran Pct Auto 0.3 % (0.0-0.4); Lymphocytes Absolute Auto 0.9 X10*3/uL (1.2-4.9); Mean Corpuscular HGB Conc 32.5 g/dl (31.0-35.0); Mean Corpuscular Hemoglobin 30.7 pg (27.0-33.0); Mean Corpuscular Volume 94.5 fL (80.0-98.0); NRBC Abs Auto 0.000 X10*3/uL (0.0-0.012); NRBC Pct Auto 0.0 /100WBC (0.0-0.2); Platelet Count 253 X10*3/uL (160-400); Red Blood Count 4.01 X10*6/uL (4.20-5.50); White Blood Count 6.1 X10*3/uL (4.8-10.8)
[2025-06-01 18:53] LABS: Alanine Aminotransferase 17 U/L (0-31); Albumin Level 4.6 g/dL (3.5-5.0); Alkaline Phosphatase 68 U/L (39-117); Anion Gap 13 (12-20); Aspartate Amino Transferase 33 U/L (5-31); Blood Urea Nitrogen 15 mg/dL (9-16); Calcium 9.2 mg/dL (8.4-10.2); Carbon Dioxide 24 mmol/L (22-29); Chloride 108 mmol/L (96-108); Cholesterol 217 mg/dL (<200); Estimated Glomerular Filt Rate 51; HDL Cholesterol 87 mg/dL (>40); Potassium 3.7 mmol/L (3.3-5.1); Sodium 141 mmol/L (135-145); Total Protein 7.5 g/dL (6.5-8.0); Triglycerides 87 mg/dL (<150)
[2025-06-01 19:21] LABS: Folate 4.8 ng/mL (> or = 4.0); Vitamin B12 > 2000 pg/mL (200-900)
[2025-06-13 07:59] LABS: Anti Nuclear Antibody Screen POSITIVE (NEGATIVE); Anti Nuclear Antibody Titer 1:320 titer
== END 2025-06-01 13:15 | disposition home or self-care (01) ==
LOC: HO.WFDLDS 13:14
PROVIDERS: Visit Provider Internal Medicine
DX: F33.1 Major depressive disorder, recurrent, moderate (principal); J30.2 Other seasonal allergic rhinitis; M81.0 Age-related osteoporosis without current pathological fracture; I10 Essential (primary) hypertension; F41.9 Anxiety disorder, unspecified; I44.7 Left bundle-branch block, unspecified; E04.9 Nontoxic goiter, unspecified; Z65.8 Other specified problems related to psychosocial circumstances; Z85.048 Personal history of other malignant neoplasm of rectum, rectosigmoid junction, and anus; Z79.899 Other long term (current) drug therapy
CPT/HCPCS: 36415; 80053; 80061; 82607; 82746; 83036; 84443; 85025; 86038; 86039; 96127; 99202

== ENCOUNTER 2025-07-17 14:59 | Outpatient (AMB) | payer MEDICARE, SELFPAY ==
--- NOTE | 2025-07-17 15:01 | A.OFFPC_ITS ---
Vital Signs 07/17/25 15:12 Height 4 ft 11.84 in Weight 113 lb BMI 22.2 BP 118/72 Blood Pressure Location Rt brachial Position Sitting Respiration 14 Pulse 81 Pulse Source Pulse Oximeter Pulse Oximetry (%) 96 Oxygen Delivery Method Room Air Intake Visit Reasons: 1/2 hour depression, anxiety Intake Note: Depression anxiety follow up Hair And Makeup Designer Required: No Allergies No Known Allergies Allergy (Verified 07/17/25 15:13) Tobacco use date assessed: 07/17/25 Fall risk assessment: No Falls in past year Last assessed Fall Risk: 07/17/25 Dental Screening Dental Screen Date: 06/01/25 HPI HPI Comments History of Present Illness Details The patient is a a 79 year old female with a past medical history of hypertension, LBBB, anxiety, GERD presenting for follow up anxiety/depression Anxiety/depression: on prozac 20mg daily, elavil 25mg daily. She had just increased prozac to 20mg prior to her last visit. She is feeling more stable on the increased dose CV: On amlodipine 5mg daily. Blood pressure is well controlled. Sent for pharmacologic stress test. Saw Dr Kinsey in June. Testing has been reassuring Endocrine: Follows with [facility]ocr[facility]ology [facility] for [facility]. History of goiter. Sees twice annually TSH 1.43. Gets prolia injections-next Aug GI: History of celiac. History of PUD-duodenal ulcer-[facility]. Can have heartburn and reflux. Says she is not supposed to be on PPI. Famotidine says not very helpful Heme/Onc: Follows with [facility]. Dr Bean. History of anorectal cancer. Had chemo & radiation. Rod zuniga. CT abd/pelvis Aug 2024. Scattered pulmonary opacities in the lung, unchanged from prior. No evidence of metastatic disease Sees Roc[facility]-h/o cataract-october last year and upcoming November 2025 Tdap 05/31/2025 RSV 05/31/2025 Pnuemonia 03/31/25 Flu & COVID 04/17/2025 Mammo 2024-following with [facility] Colonoscopy- 09/2024-Dr Kia Cristina GI ROS see HPI PHYSICAL EXAM: GENERAL: Alert and oriented x 3. NAD EYES: EOMI. Anicteric. HENT: Moist mucous membranes. No scleral icterus. No cervical lymphadenopathy. LUNGS: Clear to auscultation bilaterally. CARDIOVASCULAR: Regular rate and rhythm. No murmur. No JVD. ABDOMEN: Soft, non-tender +bs EXTREMITIES: No edema. Non-tender. SKIN: No rashes or lesions. Warm. NEUROLOGIC: No focal neurological deficits. CN II-XII grossly intact PSYCHIATRIC: Cooperative. Appropriate mood and affect [facility] Surgical History (Updated 07/17/25 @ 15:15 by Abi Hand CMA) No pertinent past surgical history Family History (Updated 06/01/25 @ 13:26 by Kai Plata CMA) Other FH: mental illness Substance abuse Social History (Updated 06/01/25 @ 13:27 by Kai Plata CMA) Housing: House Alcohol intake: current Comment: couple of drinks a week Patient Tobacco Use Status: Never used Tobacco e-Cigarette/Vaping Use: Never Used service: No Current occupational status: retired Current occupational exposures/hazards: No Cognitive needs: No Hearing needs: Yes Vision needs: Yes Questionnaire Thrive Questionnaire Date Thrive assessed: 05/29/25 I am a: Patient What is your living situation today?: I have a steady place to live Within the past 12 months, did the food you bought not last and you didn't have the money to get more?: Never true Within the past 12 months, did you worry whether your food would run out before you got money to buy more?: Never true Do you have trouble paying for medicines?: No Do you have trouble getting transportation to medical appointments?: No Do you have trouble paying your heating and electricity bill?: No Do you have trouble taking care of your child, family member or friend?: No Do you have trouble with day-to-day activities such as bathing, preparing meals, shopping, managing finances, etc.?: No Are you currently unemployed and looking for a job?: No Are you interested in more education?: Yes Please select the resources that you would like help with: None Currently or been in a relationship where the following occur: No concerns reported THRIVE Score: 0 AUDIT C Alcohol Use Questionnaire (AUDIT-C) 1. How often do you have a drink containing alcohol?: Monthly or less 2. How many drinks containing alcohol do you have on a typical day when you are drinking?: 1 or 2 3. How often do you have six or more drinks on one occasion?: Never Total Score: 1 MAXI-7 AMB Questionnaire MAXI-7 Date MAXI - 7 assessed: 06/01/25 Source: Developed by Drs. Ash Hoyos, Leonila Hernandez, Chris Zayas and colleagues, with an educational christoph from [employer]. Physical exam (Primary Care) Vital Signs: Last Vital Signs Pulse 81 07/17/25 15:12 Resp 14 07/17/25 15:12 BP 118/72 07/17/25 15:12 Pulse Ox 96 07/17/25 15:12 Oxygen Delivery Method Room Air 07/17/25 15:12 BMI result Body Mass Index 22.2 Tobacco/Smoking Status: Tobacco use Status Tobacco use date assessed 07/17/25 07/17/25 15:17 Patient Tobacco Use Status Never used Tobacco 07/17/25 15:02 e-Cigarette/Vaping Use Never Used 07/17/25 15:02 Thrive Assessment: Date of Thrive Assessment Date Thrive assessed 05/29/25 07/17/25 15:02 Currently or been in a relationship where the following occur: No concerns reported Coding Level of Care Code Est Pt Level 4 (40922) Diagnoses Moderate episode of recurrent major depressive disorder F33.1 Major depression recurrence: recurrent Active/Remission status: currently active Major depression episode severity: moderate Anxiety F41.9 Primary hypertension I10 Hypertension type: primary hypertension Gastroesophageal reflux disease, unspecified whether esophagitis present K21.9 Esophagitis presence: esophagitis presence not specified Assessment & Plan Assessment & Plan (1) Major depressive disorder: Code(s): F32.9 - Major depressive disorder, single episode, unspecified Category: Medical Qualifiers: Major depression recurrence: recurrent Active/Remission status: currently active Major depression episode severity: moderate Qualified Code(s): F33.1 - Major depressive disorder, recurrent, moderate (2) Anxiety: Code(s): F41.9 - Anxiety disorder, unspecified Category: Medical (3) Hypertension: Code(s): I10 - Essential (primary) hypertension Category: Medical Qualifiers: Hypertension type: primary hypertension Qualified Code(s): I10 - Essential (primary) hypertension (4) GERD (gastroesophageal reflux disease): Code(s): K21.9 - Gastro-esophageal reflux disease without esophagitis Category: Medical Qualifiers: Esophagitis presence: esophagitis presence not specified Qualified Code(s): K21.9 - Gastro-esophageal reflux disease without esophagitis Plan Depression/anxiety is better on increased dose of prozac. She feels stable on this current dose HTN-stable on current medications GERD-perhaps chest pain ?prolia. She had difficulty with bisphosphonates in the past History of anorectal cancer-CT surveillance has been reassuring
[2025-07-17 15:12] VITALS: BP 118/72; PULSE 81; RESP 14; O2SAT 96; BMI 22.2
--- OUTSIDE RECORDS SUMMARY | 2025-07-17 21:19 | XMS_ITS ---
Author Organization [facility] Address [address] [facility] [address] [place] [address] Phone Care Team Providers Care Hand Blocker Name Role Phone Rod Forbes MD Unavailable [phone] Bell Gil JONATHON Unavailable Srikanth Landa MD Primary Care Provider [phone] Active Problems Patient Care Coordination No te Formatting of this note migh t be different from the original. Height 152.4 no shoes 03/05/25 DO NOT SEND ANYTHING WITH [facility] IDENTIFIER ON IT Pt will get off-site labs drawn at [facility] Problem Noted Date Diagnosed Date Other [...] finding on a CT scan done in [place]. Radiologist noted calcified leiomyoma and some increased [...]
--- OUTSIDE RECORDS SUMMARY | 2025-07-17 21:19 | XMS_ITS | Clinical Summary ---
Author Organization [facility] Address [address] [place] [address] Care Team Providers Care Neon Glass Bender Name Role Phone Fatou Bruner MD Primary Care Provider [phone] Allergies Active Allergy Reactions Criticality Noted Date [...] grandfather CVA Heart Disorder Paternal uncle 2 [place] age 48 Gastrointestinal Disorder Sister 2 Ce [...] 90's) CVA Paternal uncle 1 (Age 48) [place] Paternal uncle 2 Sister 1 Lauren Alive [...] Zoster (Zostavax) Discontinued Procedures * Due to [place] [employer] law, this organization might not be sharing [...] to Health Maintenance Results * Due to [place] [employer] law, this organization might not be sharing [...] to patient [address] [facility] (IA# [id number]) Anatomical Region Laterality Modality BREAST Bilateral Mammography [...] - 200 mg/dL [facility] Comment:{CHOLESTEROL, TOTAL {[id number]) HDL Cholesterol 91 > OR = 46 mg/dL [facility] Comment:{HDL CHOLESTEROL {[id number]) Triglyceride 54 <150 mg/dL [facility] Comment:{TRIGLYCERIDES {[id number]) LDL Cholesterol 103 <130 mg/dL (calc) [facility] Comment: {LDL-CHOLESTEROL {[id number]) Desirable range <100 mg/dL for patients with CHD or diabetes and <70 mg/dL for diabetic patients with known heart disease. CHOL/HDL Ratio 2.3 < OR = 5.0 (calc) [facility] Comment:{CHOL/HDLC RATIO {[id number]) Cholesterol Non-HDL 114 mg/dL (calc) [facility] Comment: {NON HDL CHOLESTEROL {[id number]) Target for non-HDL cholesterol is 30 mg/dL higher than LDL cholesterol target. 06/17/2012 8:39 AM EST 06/17/2012 1:10 PM EST Narrative Resulting Agency Comment [id number] us Chantal Ocasio MD LABORATORY Final Result Performing Organization Address City/State/[facility] Co de Phone Number [facility] [address] [place] [address] * COLORECTAL SCRN; HI RISK IND (09/29/2011) Narrative Transcriptions Nico Woodard - 10/16/2011 12:00 AM EST us Nico Woodard MD PROCEDURES Final Result * LIQUID-BASED PAP WITH HPVH (06/16/2011 9:45 AM EST) Clinical information Normal exam Postmenopausal [facility] Comment:{CLINICAL INFORMATIO N: {[id number]) LMP POSTMENOPAUSAL [facility] Comment:{LMP: {[id number]) Date of previous PAP smear NONE GIVEN [facility] Comment:{PREV. PAP: {[id number]) Date of previous biopsy NONE GIVEN [facility] Comment:{PREV. BX: {[id number]) Specimen source (Cvx/Vag) Vagina, Cervix, Endocervix [facility] Comment:{SOURCE: {[id number]) Statement of Adequacy (Cvx/Vag) Satisfactory for evaluation. Endocervical/grant sformation zone component present. [facility] Comment:{STATEMENT OF ADEQUA CY: {[id number]) Cytology, Pap Smear Negative for intraepithelial lesion or malignancy. [facility] Comment:{INTERPRETATION/RESU LT: {[id number]) Cytology study comment (Cvx/Vag) This Pap test has been evaluated with computer assisted technology. [facility] Comment:{COMMENT: {[id number]) [place] (Cvx/Vag) DMM, CT(ASCP) [facility] Comment:{FAST FOOD ATTENDANT: { [id number]) Human Papillomavirus (HPV) DNA, High Risk Test not performed. Quantity not sufficient. [facility] Comment:{HPV DNA (HIGH RISK) {[id number]) 06/16/2011 9:45 AM EST 06/16/2011 10:26 PM EST Dulce NG PATHOLOGY-INTERFACED Final Resu lt Performing Organization Address City/State/[facility] Co de Phone Number [facility] [address] [place] [address] * CHEST XRAY POST PROCEDURE WITH OTHER [...] Time of study 12:30. TEST(S) PROCESSED BY [facility] XRAY us Chelsie Witt MD IMAGING-[facility] Final Result * HEPATITIS PANEL, ACUTE (02/26/2009) HEPATITIS B SURFACE ANTIGEN NEUTRALIZATION NON-REACT GLYNN NON-REACT GLYNN [facility] HEPATITIS C AB NON-REACT GLYNN NON-REACT GLYNN [facility] HEPATITIS A AB.IGM NON-REACT GLYNN NON-REACT GLYNN [facility] HEPATITIS B CORE AB.IGM NON-REACT GLYNN NON-REACT GLYNN [facility] 02/26/2009 02/26/2009 2:2 3 PM EDT Joi Yeung MD LABORATORY Final Result [facility] [address] [place] [address] from Last 3 Months or Most Recently Relevant to Health Maintenance Insurance MEDICARE PART B [employer] [facility] MEDICARE/COMMERCIAL Care Teams Neon Glass Bender Relationship Specialty Start Date End Date Fatou Bruner MD [facility] [address] [place] [address] PCP - General Family Medicine 06/12/19
--- OUTSIDE RECORDS SUMMARY | 2025-07-17 21:19 | XMS_ITS | Encounter Summary ---
Author Organization [facility] Address [address] [place] [address] Care Team Providers Care Press Operator Heavy Duty Name Role Phone Fatou Bruner MD Primary Care Provider [phone] Encounter Details Date Type Department Care Team (Late st Contact Info) Description 07/27/2019 Orders Only [facility]. Rheumatology [address] [place] [address] [phone] Nico Hong MD Medications Social History Tobacco [...] on filedocumented in this encounter Care Teams Press Operator Heavy Duty Relationship Specialty Start Date End Date Fatou Bruner MD [facility] [address] [place], [place] [address] PCP - General Family Medicine 06/12/19 documented as of this encounter
--- OUTSIDE RECORDS SUMMARY | 2025-07-17 21:19 | XMS_ITS | Encounter Summary ---
Author Organization [facility] Address [address] [place] [id number] Care Team Providers Care Plant Maintenance Supervisor Name Role Phone Chantal Ocasio MD Primary Care Provider Unavailab le Unknown Pcp, Non Rmg Primary Care Provider Unava ilable Fatou Bruner MD Primary Care Provider [phone] Encounter Details Date Type Department Care Team (Late st Contact Info) Description 06/17/2012 [facility] Only [address] [phone] Chantal Ocasio MD Social History Tobacco Use [...] this encounter Procedures * Due to [employer] law, this organization might not be sharing [...] in this encounter Results * Due to [employer] law, this organization might not be sharing negative HIV tests. * VITAMIN D, 25-HYDROXY, LC/MS/MS (06/17/2012 8:39 AM EST) Vitamin D, 25-OH, Total 34 30 - 100 ng/mL [facility] Comment:{VITAMIN D, 25 OH, T OTAL {[id number]) Vitamin D, D3 (Cholecalciferol ) 34 ng/mL [facility] Comment:{VITAMIN D, 25 OH, D 3 {[id number]) Vitamin D, 25-OH, D2 (Calciferol) <4 ng/mL [facility] Comment: {VITAMIN D, 25 OH, D2 {[id number]) 25-OHD3 indicates both endogenous production and supplementation. [...] 1:10 PM EST Narrative Resulting Agency Comment [id number] Chantal Ocasio MD LABORATORY Final Result [facility] [address] [place] [address] * BASIC METABOLIC PANEL WITH (GFR) (06/17/2012 8:39 AM EST) Glucose 87 65 - 99 mg/dL [facility] Comment: {GLUCOSE {[id number]) Fasting reference interval Urea Nitrogen Blood (BUN) 22 7 - 25 mg/dL [facility] Comment:{UREA NITROGEN (BUN) {[id number]) Creatinine 0.80 0.50 - 0.99 mg/dL [facility] Comment: {CREATININE {[id number]) For patients >49 years of age, the reference limit for Creatinine is approximately 13% higher for people identified as -Slovak. GFR 77 > OR = 60 mL/min/1 .73m2 [facility] Comment:{eGFR NON-AFR. AMERI CAN {[id number]) GFR () 89 > OR = 60 mL/min/1 .73m2 [facility] Comment:{eGFR AMERIC AN {[id number]) BUN/Creatinine Ratio NOT APPLICABLE 6 - 22 (calc) [facility] Comment:{BUN/CREATININE RATI O {[id number]) Sodium 139 135 - 146 mmol/L [facility] Comment:{SODIUM {[id number]) Potassium 4.7 3.5 - 5.3 mmol/L [facility] Comment:{POTASSIUM {[id number]) Chloride 105 98 - 110 mmol/L [facility] Comment:{CHLORIDE {[id number]) Carbon dioxide 26 21 - 33 mmol/L [facility] Comment:{CARBON DIOXIDE {[id number]) Calcium 9.8 8.6 - 10.4 mg/dL [facility] Comment:{CALCIUM {[id number]) 06/17/2012 8:39 AM EST 06/17/2012 1:10 [...] needs for GFR calculation. Resulting Agency Comment [id number] Chantal Ocasio MD LABORATORY Final Result [facility] [address] [place] [address] * (ABNORMAL) LIPID PANEL WITH REFLEX TO DIRECT LDL (06/17/2012 8:39 AM EST) Cholesterol 205(H) 125 - 200 mg/dL [facility] Comment:{CHOLESTEROL, TOTAL {[id number]) HDL Cholesterol 91 > OR = 46 mg/dL [facility] Comment:{HDL CHOLESTEROL {[id number]) Triglyceride 54 <150 mg/dL [facility] Comment:{TRIGLYCERIDES {[id number]) LDL Cholesterol 103 <130 mg/dL (calc) [facility] Comment: {LDL-CHOLESTEROL {[id number]) Desirable range <100 mg/dL for patients with CHD or diabetes and <70 mg/dL for diabetic patients with known heart disease. CHOL/HDL Ratio 2.3 < OR = 5.0 (calc) [facility] Comment:{CHOL/HDLC RATIO {[id number]) Cholesterol Non-HDL 114 mg/dL (calc) [facility] Comment: {NON HDL CHOLESTEROL {[id number]) Target for non-HDL cholesterol is 30 mg/dL higher than LDL cholesterol target. 06/17/2012 8:39 AM EST 06/17/2012 1:10 PM EST Narrative Resulting Agency Comment [id number] us Chantal Ocasio MD LABORATORY Final Result [facility] [address] [place] [address] * (ABNORMAL) CBC INCLUDES DIFFERENTIAL AND PLATELET COUNT (06/17/2012 8:39 AM EST) WBC 4.3 3.8 - 10.8 Thousand/u L [facility] Comment:{WHITE BLOOD CELL CO UNT {[id number]) RBC 4.34 3.80 - 5.10 Million/uL [facility] Comment:{RED BLOOD CELL COUN T {[id number]) Hemoglobin 13.8 11.7 - 15.5 g/dL [facility] Comment:{HEMOGLOBIN {[id number]) Hematocrit 41.3 35.0 - 45.0 % [facility] Comment:{HEMATOCRIT {[id number]) MCV 95.1 80.0 - 100.0 fL [facility] Comment:{MCV {[id number]) MCH 31.9 27.0 - 33.0 pg [facility] Comment:{MCH {[id number]) MCHC 33.5 32.0 - 36.0 g/dL [facility] Comment:{MCHC {[id number]) RDW 13.3 11.0 - 15.0 % [facility] Comment:{RDW {[id number]) PLT 199 140 - 400 Thousand/u L [facility] Comment:{PLATELET COUNT {[id number]) MPV 7.2(L) 7.5 - 11.5 fL [facility] Comment:{MPV {[id number]) Neutrophils # 2167 1500 - 7800 cells/uL [facility] Comment:{ABSOLUTE NEUTROPHIL S {[id number]) Lymphocytes # 1518 850 - 3900 cells/uL [facility] Comment:{ABSOLUTE LYMPHOCYTE S {[id number]) Monocytes # 503 200 - 950 cells/uL [facility] Comment:{ABSOLUTE MONOCYTES {[id number]) Eosinophils # 82 15 - 500 cells/uL [facility] Comment:{ABSOLUTE EOSINOPHIL S {[id number]) Basophils # 30 0 - 200 cells/uL [facility] Comment:{ABSOLUTE BASOPHILS {[id number]) Neutrophils % 50.4 % [facility] Comment:{NEUTROPHILS {[id number]) Lymphocytes % 35.3 % [facility] Comment:{LYMPHOCYTES {[id number]) Monocytes % 11.7 % [facility] Comment:{MONOCYTES {[id number]) Eosinophils % 1.9 % [facility] Comment:{EOSINOPHILS {[id number]) Basophils % 0.7 % [facility] Comment:{BASOPHILS {[id number]) 06/17/2012 8:39 AM EST 06/17/2012 1:10 PM EST Narrative Resulting Agency Comment [id number] us Chantal Ocasio MD LAB SAME DAY RESULT Final Result [facility] [address] [place] [address] documented in this encounter Visit Diagnoses Diagnosis Screening for deficiency anemia Screening for other and unspecified deficiency anemia Lipid screening Screening for lipoid disorders Routine history and physical examination of adult Routine general medical examination at a health care facility Screening for endorine/nutritional/metabolic disease Screening for other and unspecified endocrine, nutritional, metabolic, and immunity disorders documented in this encounter Care Teams Plant Maintenance Supervisor Relationship Specialty Start Date End Date Chantal Ocasio MD PCP - General 09/02/11 03/20/13 Unknown Pcp, Non Rmg PCP - General 03/21/13 05/13/17 Fatou Bruner MD [facility] [address] [facility] [place] [address] PCP - General Family Medicine 06/12/19 documented as of this encounter
--- OUTSIDE RECORDS SUMMARY | 2025-07-17 21:19 | XMS_ITS | Encounter Summary ---
Author Organization [facility] Address [address] [facility] [address] [place] [address] Phone Care Team Providers Care Bread Pan Greaser Name Role Phone Martha Grissom ASSISTANT GUEST SERVICES MANAGER Primary Care Provider [phone] Rod Forbes MD Unavailable [phone] Bell Gil GRAPHIC SPECIALIST Unavailable Yas Tejeda ASSISTANT GUEST SERVICES MANAGER Unavailable [phone] Srikanth Landa MD Primary Care Provider [phone] Encounter Details Date Type Department Care Team (Late st Contact Info) Description 02/14/2024 Procedure Pass [facility], Ct Scan - [address] [address] Social History Tobacco Use Types Packs/Day Years [...] st Contact Info) Description 03/05/2025 Procedure Pass [address] [address] 03/05/2025 Procedure Pass [address] [address] 07/24/2025 1:45 PM EST Office Visit [facility] [address] [place] [address] Sarah Bean MD [address] [place] [address], [address] [place] [address] 08/30/2025 2:30 PM EST Appointment [address] [address] Rod Forbes MD [address] [place] [address] 09/06/2025 1:40 PM EST Blood Draw [facility] [address] [place] [address] Rod Forbes MD [address] [place] [address] 09/06/2025 2:40 PM EST Office Visit [facility] at [address] [address] Rod Forbes MD [address] [place] [phone] documented as of this encounter Visit Diagnoses Not on filedocumented in this encounter Care Teams Bread Pan Greaser Relationship Specialty Start Date End Date Martha Grissom NP [address] [place] [address] PCP - General 04/24/22 06/12/24 Srikanth Landa MD [address] [place] [address] PCP - General Family Medicine 06/13/24 Rod Forbes MD [address] [place] [address] [email or web address] Primary Oncologist Medical Oncology 04/24/22 Bell Gil CNP [address] [place] [address] Nurse Practitioner Medical Oncology 05/18/22 Yas Tejeda NP [address] [place] [address] [email or web address] Nurse Practitioner Medical Oncology 07/09/22 02/27/25 documented as of this encounter Additional Source Comments The information contained in this document represents components of the legal health record. It is not the complete legal health record.[facility]
--- OUTSIDE RECORDS SUMMARY | 2025-07-17 21:19 | XMS_ITS | Encounter Summary ---
Author Organization [facility] Address [address] [place] [address] Care Team Providers Care Shiatsu Therapist Name Role Phone Jonnie Clark MD Primary Care Provider Unavailab le Unknown Pcp, Non Rmg Primary Care Provider Unava ilable Fatou Bruner MD Primary Care Provider [phone] Reason for Visit * Reason Onset Date Comments Refill Request 03/14/2012 Encounter Details Date Type Department Care Team (Late st Contact Info) Description 03/14/2012 Refill [facility] [address] [place] [phone] Jonnie Clark MD Refill Request Social History [...] is the right count when getting thru [facility] program. * Telephone Encounter - Rachelle Clemons [...] Time Provider Department Center 05/02/2012 10:00 AM 25608-CST MAMMOGRAPHY ROOM2 [facility] 06/24/2012 9:30 AM 1582-JONNIE CLARK WBOFP WBO [...] on filedocumented in this encounter Care Teams Shiatsu Therapist Relationship Specialty Start Date End Date Jonnie Clark MD PCP - General 09/02/11 03/20/13 Unknown Pcp, Non g PCP - General 03/21/13 05/13/17 Fatou Bruner MD [facility] [address] [place] [place] [address] PCP - General Family Medicine 06/12/19 documented as of this encounter
--- OUTSIDE RECORDS SUMMARY | 2025-07-17 21:19 | XMS_ITS | Encounter Summary ---
Author Organization [facility] Address [address] [place] [id number] Care Team Providers Care Mdm Sr Name Role Phone Chantal Ocasio MD Primary Care Provider Unavailab le Unknown Pcp, Non Rmg Primary Care Provider Unava ilable Fatou Bruner MD Primary Care Provider [phone] Encounter Details Date Type Department Care Team (Late st Contact Info) Description 11/09/2012 Orders Only [facility] [address] [place] [address] Nico Hong MD Social History Tobacco Use [...] of this encounter Procedures * Due to [place] state law, this organization might not be [...] in this encounter Results * Due to [place] state law, this organization might not be sharing negative HIV tests. * CELIAC DISEASE COMPREHENSIVE PANEL (11/09/2012 9:34 AM EDT) (TTG) AB, IGA <1 U/mL [facility] Comment: {TISSUE TRANSGLUTAMINASE AB, IGA {[id number]) Value Interpretation ----- <4 No Antibody Detected > or = 4 Antibody Detected IgA 203 81 - 463 mg/dL [facility] Comment:{IMMUNOGLOBULIN A {[id number]) 11/09/2012 9:34 AM EDT 11/09/2012 6:32 PM EDT Narrative Resulting Agency Comment [id number] us Nico Hong MD LABORATORY Final Result [facility] [address] [place] [address] * ALKALINE PHOSPHATASE (11/09/2012 9:34 AM EDT) Alkaline phosphatase 68 33 - 130 U/L [facility] Comment:{ALKALINE PHOSPHATAS E {[id number]) 11/09/2012 9:34 AM EDT 11/09/2012 6:32 PM EDT Narrative Resulting Agency Comment [id number] us Nico Hong MD LAB SAME DAY RESULT Final Result Performing Organization Address [facility] Co de Phone Number [facility] [address] [place] [address] * THYROID CASCADING REFLEX (11/09/2012 9:34 AM EDT) TSH 0.85 0.40 - 4.50 mIU/L [facility] Comment:{TSH {[id number]) INTERPRETATION SEE NOTE [facility] Comment: {INTERPRETATION {[id number]) TSH within normal range. Consistent with euthyroid patient. Interference from heterophilic antibodies (more common) or autoantibody (less common) should be considered when the TSH value does not fit the clinical picture. TSH with HAMA Treatment (test code 93625) or TSH Antibody (test code 09882) may help identify such interferences. 11/09/2012 9:34 AM EDT 11/09/2012 6:32 PM EDT Narrative Resulting Agency Comment [id number] Nico Hong MD LABORATORY Final Result Performing Organization Address [facility] Co de Phone Number [facility] [address] [place] [address] * PROTEIN, TOTAL AND PROTEIN ELECTROPHORESIS (SPEP) W/ REFLEX LUÍS, SERUM (11/09/2012 9:34 AM EDT) Pathologist [facility] Protein Total (Serum) 6.5 6.1 - 8.1 g/dL [facility] Comment:{PROTEIN, TOTAL {[id number]) Albumin 3.9 3.5 - 4.7 g/dL [facility] Comment:{ALBUMIN {[id number]) Alpha 1 globulin 0.2 0.1 - 0.3 g/dL [facility] Comment:{RNGXV-1-DIDRWEKVX { [id number]) Alpha 2 globulin 0.6 0.5 - 1.0 g/dL [facility] Comment:{SQSEW-2-IPPONVNUX { [id number]) Beta globulin 0.9 0.8 - 1.4 g/dL [facility] Comment:{BETA GLOBULINS {[id number]) Gamma globulin 0.9 0.6 - 1.6 g/dL [facility] Comment:{GAMMA GLOBULINS {[id number]) Protein pattern SEE NOTE [facility] Comment: {INTERPRETATION {[id number]) Normal Pattern 11/09/2012 9:34 AM EDT 11/09/2012 6:32 PM EDT Narrative Resulting Agency Comment [id number] us Nico Hong MD LABORATORY Final Result Performing Organization Address [facility] de Phone Number [facility] [address] [place] [address] * ASPARTATE AMINOTRANSFERASE (AST), SERUM (11/09/2012 9:34 AM EDT) AST (SGOT) 24 10 - 35 U/L [facility] Comment:{AST {[id number]) 11/09/2012 9:34 AM EDT 11/09/2012 6:32 PM EDT Narrative Resulting Agency Comment [id number] Nico Hong MD LAB SAME DAY RESULT Final Result Performing Organization Address [facility] de Phone Number [facility] [address] [place] [address] * ALANINE AMINOTRANSFERASE (ALT), SERUM (11/09/2012 9:34 AM EDT) ALT (SGPT) 19 6 - 40 U/L [facility] Comment:{ALT {[id number]) 11/09/2012 9:34 AM EDT 11/09/2012 6:32 PM EDT Narrative Resulting Agency Comment [id number] us Nico Hong MD LAB SAME DAY RESULT Final Result Performing Organization Address [facility] de Phone Number [facility] [address] [place] [address] documented in this encounter Visit Diagnoses Diagnosis Osteoporosis Osteoporosis, unspecified Celiac disease (HHS) Celiac disease documented in this encounter Care Teams Mdm Sr Relationship Specialty Start Date End Date Chantal Ocasio MD PCP - General 09/02/11 03/20/13 Unknown Pcp, Non Rmg PCP - General 03/21/13 05/13/17 Fatou Bruner MD [facility] [address] [facility] [place] [address] PCP - General Family Medicine 06/12/19 documented as of this encounter
--- OUTSIDE RECORDS SUMMARY | 2025-07-17 21:19 | XMS_ITS | Encounter Summary ---
Author Organization [facility] Address [address] [facility] [address] [place] [address] Phone Care Team Providers Care Area Secretary Name Role Phone Rod Forbes MD Unavailable Bell Gil ELECTRIC MOTOR TESTER Unavailable Yas Tejeda PLAYER PIANO TECHNICIAN Unavailable [phone] Srikanth Landa MD Primary Care Provider [phone] Encounter Details Date Type Department Care Team (Late st Contact Info) Description 09/18/2024 Procedure Pass [facility] Admitting Dept Virtual Department [address] [place] [address] [phone] Social History Tobacco Use Types Packs/Day Years [...] st Contact Info) Description 03/05/2025 Procedure Pass [address] [address] 03/05/2025 Procedure Pass [address] [address] 07/24/2025 1:45 PM EST Office Visit [facility] Surgical Care [address] [place] [address] Sarah Bean MD [address] [place] [address], [address] [place] [address] 08/30/2025 2:30 PM EST Appointment [address] [address] Rod Forbes MD [address] [place] [address] 09/06/2025 1:40 PM EST Blood Draw [facility] [address] [address] Rod Forbes MD [address] [place] [address] 09/06/2025 2:40 PM EST Office Visit [facility] [address] [place] [address] Rod Forbes MD [address] [place] [address] documented as of this encounter Visit Diagnoses Not on filedocumented in this encounter Care Teams Area Secretary Relationship Specialty Start Date End Date Srikanth Landa MD [address] [place] [address] PCP - General Family Medicine 06/13/24 Rod Forbes MD [address] [place] [address] Primary Oncologist Medical Oncology 04/24/22 Bell Gil CNP [address] [place] [address] Nurse Practitioner Medical Oncology 05/18/22 Yas Tejeda NP [address] [place] [address] Nurse Practitioner Medical Oncology 07/09/22 02/27/25 documented as of this encounter Additional Source Comments The information contained in this document represents components of the legal health record. It is not the complete legal health record.[facility]
--- OUTSIDE RECORDS SUMMARY | 2025-07-17 21:19 | XMS_ITS | Clinical Summary ---
Author Organization [facility] Address [address] [address] Phone Care Team Providers Care Plate Glass Installer Helper Name Role Phone Rod Forbes MD Unavailable [phone] LouiseTroybandar HOLT Unavailable Srikanth Landa MD Primary Care Provider [phone] Allergies Active Allergy Reactions Criticality Noted Date [...] shoes 03/05/25 DO NOT SEND ANYTHING WITH [facility] IDENTIFIER ON IT Pt will get off-site labs drawn at [facility] Problem Noted Date Diagnosed Date Other [...] finding on a CT scan done in [place]. Radiologist noted calcified leiomyoma and some increased [...] Type Department Care Team Description 05/04/2025 Telephone [facility] [address] Floor, [address] [place] [address] Елена Santana, LULI 04/27/2025 12:19 PM EDT - 04/27/2025 11:59 PM EDT Hospital Encounter Non-Invasive Cardiology [address] [place] [address] Ranulfo Rios MD Discharge Disposition: Home or Self Care 04/27/2025 Ancillary Orders [facility] [address] Floor, [address] [place] [address] Ranulfo Rios MD Left bundle branch block (Primary Dx) from Last 3 Months Immunizations Immunization Administration [...] st Contact Info) Description 03/05/2025 Procedure Pass [address] [address] 03/05/2025 Procedure Pass [address] [address] 07/24/2025 1:45 PM EST Office Visit [facility] General Surgical Care [address] [place] [address] Sarah Bean MD [address] [place] [address], 2nd [place] [address] 08/30/2025 2:30 PM EST Appointment [address] [address] Rod Forbes MD [address] [place] [address] [email or web address] 09/06/2025 1:40 PM EST Blood Draw [facility] [address] [place] [address] Rod Forbes MD [address] [place] [address] 09/06/2025 2:40 PM EST Office Visit [facility] at [address] [address] Rod Forbes MD [address] [place] [address] Health Maintenance Due Date Last Done Comments [...] 11/21/2018, 09/25/2015, 06/24/2012 ZOSTER VACCINES Completed 03/08/2019, 01/2019, 10/28/2015 HEPATITIS A VACCINES Aged Out No [...] 2:00 PM EDT Left bundle branch block from Last 3 Months Results * NC Myocardial Perfusion Pharmacologic Stress Multiple (04/27/2025 2:00 PM EDT) [facility] Max Predicted Heart Rate 141 bpm [...] Tc99m Sestamibi by Skyler Schulz, the nuclear physicist. 1. EKG: Baseline EKG showed sinus rhythm [...] in SPECT format, reconstructed tomographically and compared [id number] in short axis, horizontal long axis and [...] MD CV NM CARDIAC Final Re sult from Last 3 Months Insurance MEDICARE PART A & B [facility] MEDICARE SUPPLEMENT MEDICARE PART A & B [facility] MEDICARE SUPPLEMENT MEDICARE PART A & B [facility] MEDICARE SUPPLEMENT MEDICARE PART A & B [employer] MED[employer] SUPPLEMENT MEDICARE PART A & B [employer] MED[employer]ARE SUPPLEMENT MEDICARE PART A & B [employer] MED[employer]ARE SUPPLEMENT MEDICARE PART A & B [facility] MEDICARE SUPPLEMENT MEDICARE PART A & B [facility] MEDICARE SUPPLEMENT MEDICARE PART A & B [facility] MEDICARE SUPPLEMENT Advance Directives For more information, please contact: [phone] (9AM - 5PM [facility], Wednesday-Wednesday) * Full Code (Latest Code Status on File) Date Activated Date Inactivated Comments 11/08/2023 9:38 AM Question Answer Comments Code Status Confirmed With: Patient Care Teams Plate Glass Installer Helper Relationship Specialty Start Date End Date Srikanth Landa MD [address] [place] [address] PCP - General Family Medicine 06/13/24 Rod Forbes MD [address] [place] [address] Primary Oncologist Medical Oncology 04/24/22 Bell Gil CNP [address] [place] [address] Nurse Practitioner Medical Oncology 05/18/22 Additional Source Comments The information contained in this document represents components of the legal health record. It is not the complete legal health record.[facility]
--- OUTSIDE RECORDS SUMMARY | 2025-07-17 21:19 | XMS_ITS | Continuity of Care Document ---
Author Organization [facility] Address [address] [place] [address] [address] [place], [place] Phone [phone] Care Team Providers Care Blanket Cutter Hand Name Role Phone Fatou Bruner MD Care Team Information Trader [facility] YAIR LARSEN M.D. Care Team Information Rec eiver Unavailable Fatou Bruner MD Primary Care Physician Unavailab le Social History Type Date Description Comments Sex Female Sex Unknown
--- OUTSIDE RECORDS SUMMARY | 2025-07-17 21:19 | XMS_ITS | Encounter Summary ---
Author Organization [facility] Address [address] [facility] [address] [place] [address] Phone Care Team Providers Care Spear Fisher Name Role Phone Rod Forbes MD Unavailable [phone] Bell Gil CNP Unavailable Srikanth Landa MD Primary Care Provider [phone] Reason for Referral * MRI/CAT Scan - New Request Specialty Diagnoses / Procedures Referred By Contac t Referred To Contact Radiology Diagnoses Left bundle branch block Procedures NC Myocardial Perfusion Pharmacologic Stress Multiple NC Myocardial Perfusion Exercise Multiple Ranulfo Rios MD [address] [facility] 1 [place] [address] Phone: tel: fax: Referral ID Status Reason Start Date Expiration Date V isits Requested Visits Authorized [id number] New Request 04/11/2025 1 1 Encounter Details Date Type Department Care Team (Late st Contact Info) Description 04/27/2025 Ancillary Orders [facility] [address] Floor, [address] [place] [address] Ranulfo Rios MD [address] [facility] 1 [place] [address] Left bundle branch block (Primary [...] st Contact Info) Description 03/05/2025 Procedure Pass [address] [address] 03/05/2025 Procedure Pass [address] [address] 07/24/2025 1:45 PM EST Office Visit [facility] General Surgical Care [address] [place] [address] Sarah Bean MD 15 [facility], 2nd [place] [address] [email or web address] 08/30/2025 2:30 PM EST Appointment [facility], Ct Scan - [address] [address] Rod Forbes MD [address] [place] [address] [email or web address] 09/06/2025 1:40 PM EST Blood Draw [facility] [address] [place] [address] Rod Forbes MD [address] [place] [address] [email or web address] 09/06/2025 2:40 PM EST Office [facility] at [address] [address] Rod Forbes MD [address] [place] [address] [email or web address] documented as of this encounter Results * NC Myocardial Perfusion Pharmacologic Stress Multiple (04/27/2025 2:00 PM EDT) [facility] Max Predicted Heart Rate 141 bpm Stress/rest [...] Tc99m Sestamibi by Skyler Schulz, the nuclear weapons specialist. 1. EKG: Baseline EKG showed sinus rhythm [...] in SPECT format, reconstructed tomographically and compared [id number]-[id number] in short axis, horizontal long axis and [...] block documented in this encounter Care Teams Spear Fisher Relationship Specialty Start Date End Date Srikanth Landa MD [address] [place] [address] PCP - General Family Medicine 06/13/24 Rod Forbes MD [address] [place] [address] Primary Oncologist Medical Oncology 04/24/22 Bell Gil CNP [address] [place] [address] Nurse Practitioner Medical Oncology 05/18/22 documented as of this encounter Additional Source Comments The information contained in this document represents components of the legal health record. It is not the complete legal health record.[facility]
--- OUTSIDE RECORDS SUMMARY | 2025-07-17 21:19 | XMS_ITS | Encounter Summary ---
Author Organization [facility] Address [address] [facility] [address] [place] [address] Phone Care Team Providers Care Ground Instructor Advanced Name Role Phone Martha Grissom SUPERVISOR REFINING Primary Care Provider [phone] Rod Forbes MD Unavailable [phone] Bell Gil BID CLERK Unavailable Yas Tejeda SUPERVISOR REFINING Unavailable [phone] Srikanth Landa MD Primary Care Provider [phone] Encounter Details Date Type Department Care Team (Late st Contact Info) Description 02/14/2024 Procedure Pass [facility], Ct Scan - [address] [address] Social History Tobacco Use Types Packs/Day Years [...] st Contact Info) Description 03/05/2025 Procedure Pass [address] [address] 03/05/2025 Procedure Pass [address] [address] 07/24/2025 1:45 PM EST Office Visit [facility] General Surgical Care [address] [place] [address] Sarah Bean MD [address] [place] [address], 2[address] [place] [address] 08/30/2025 2:30 PM EST Appointment [address] [address] Rod Forbes MD [address] [place] [address] [email or web address] 09/06/2025 1:40 PM EST Blood Draw [facility] [address] [place] [address] Rod Forbes MD [address] [place] [address] 09/06/2025 2:40 PM EST Office Visit [facility] at [address] [address] Rod Forbes MD [address] [place] [phone] documented as of this encounter Visit Diagnoses Not on filedocumented in this encounter Care Teams Ground Instructor Advanced Relationship Specialty Start Date End Date Martha Grissom NP [address] [place] [address] PCP - General 04/24/22 06/12/24 Srikanth Landa MD [address] [place] [address] PCP - General Family Medicine 06/13/24 Rod Forbes MD [address] [place] [address] [email or web address] Primary Oncologist Medical Oncology 04/24/22 Bell Gil CNP [address] [place] [address] Nurse Practitioner Medical Oncology 05/18/22 Yas Tejeda NP [address] [place] [address] [email or web address] Nurse Practitioner Medical Oncology 07/09/22 02/27/25 documented as of this encounter Additional Source Comments The information contained in this document represents components of the legal health record. It is not the complete legal health record.[facility]
--- OUTSIDE RECORDS SUMMARY | 2025-07-17 21:19 | XMS_ITS | Encounter Summary ---
Author Organization [facility] Address [address] [id number] Care Team Providers Care Concert Manager Name Role Phone Joi Yeung MD Primary Care Provider [phone] Chantal Ocasio MD Primary Care Provider Unavailab le Unknown Pcp, Non Rmg Primary Care Provider Unava ilable Fatou Bruner MD Primary Care Provider [phone] Encounter Details Date Type Department Care Team (Late st Contact Info) Description 06/09/2011 Orders Only [facility] [address] [place] [address] Joi Yeung MD [address] [place] [address] Social History Tobacco Use Types Packs/Day Years [...] of this encounter Procedures * Due to [place] [employer] law, this organization might not be sharing [...] in this encounter Results * Due to [place] [employer] law, this organization might not be sharing negative HIV tests. * VITAMIN D, 25-HYDROXY, LC/MS/MS (06/09/2011 9:19 AM EDT) Vitamin D, 25-OH, Total 30 30 - 100 ng/mL [facility] Comment:{VITAMIN D, 25 OH, T OTAL {[id number]) Vitamin D, D3 (Cholecalciferol ) 30 ng/mL [facility] Comment:{VITAMIN D, 25 OH, D 3 {[id number]) Vitamin D, 25-OH, D2 (Calciferol) <4 ng/mL [facility] Comment: {VITAMIN D, 25 OH, D2 {[id number]) 25-OHD3 indicates both endogenous production and supplementation. [...] 5:56 PM EDT Narrative Resulting Agency Comment [id number] Joi Yeung MD LABORATORY Final Result [facility] [address] [place] [address] * BASIC METABOLIC PANEL WITH (GFR) (06/09/2011 9:19 AM EDT) Glucose 87 65 - 99 mg/dL [facility] Comment: {GLUCOSE {[id number]) Fasting reference interval Urea Nitrogen Blood (BUN) 23 7 - 25 mg/dL [facility] Comment:{UREA NITROGEN (BUN) {[id number]) Creatinine 0.91 0.60 - 1.18 mg/dL [facility] Comment:{CREATININE {[id number]) GFR 66 > OR = 60 mL/min/1. 73m2 [facility] Comment:{eGFR NON-AFR. AMERI CAN {[id number]) GFR () 77 > OR = 60 mL/min/1. 73m2 [facility] Comment:{eGFR AMERIC AN {[id number]) BUN/Creatinine Ratio NOT APPLICABLE 6 - 22 (calc) [facility] Comment:{BUN/CREATININE RATI O {[id number]) Sodium 141 135 - 146 mmol/L [facility] Comment:{SODIUM {[id number]) Potassium 4.5 3.5 - 5.3 mmol/L [facility] Comment:{POTASSIUM {[id number]) Chloride 105 98 - 110 mmol/L [facility] Comment:{CHLORIDE {[id number]) Carbon dioxide 26 21 - 33 mmol/L [facility] Comment:{CARBON DIOXIDE {[id number]) Calcium 9.5 8.6 - 10.2 mg/dL [facility] Comment:{CALCIUM {[id number]) 06/09/2011 9:19 AM EDT 06/09/2011 5:56 [...] needs for GFR calculation. Resulting Agency Comment [id number] Joi eYung MD LABORATORY Final Result Performing Organization Address City/[facility] Co de Phone Number [facility] [address] [place] [address] * (ABNORMAL) LIPID PANEL WITH REFLEX TO DIRECT LDL (06/09/2011 9:19 AM EDT) Cholesterol 219(H) 125 - 200 mg/dL [facility] Comment:{CHOLESTEROL, TOTAL {[id number]) HDL Cholesterol 98 > OR = 46 mg/dL [facility] Comment:{HDL CHOLESTEROL {[id number]) Triglyceride 53 <150 mg/dL [facility] Comment:{TRIGLYCERIDES {[id number]) LDL Cholesterol 110 <130 mg/dL (calc) [facility] Comment: {LDL-CHOLESTEROL {[id number]) Desirable range <100 mg/dL for patients with CHD or diabetes and <70 mg/dL for diabetic patients with known heart disease. CHOL/HDL Ratio 2.2 < OR = 5.0 (calc) [facility] Comment:{CHOL/HDLC RATIO {[id number]) 06/09/2011 9:19 AM EDT 06/09/2011 5:56 PM EDT Narrative Resulting Agency Comment [id number] Joi Yeung MD LABORATORY Final Result Performing Organization Address [facility]/ZIP Co de Phone Number [facility] [address] [place] [address] * (ABNORMAL) CBC INCLUDES DIFFERENTIAL AND PLATELET COUNT (06/09/2011 9:19 AM EDT) WBC 5.3 3.8 - 10.8 Thousand/u L [facility] Comment:{WHITE BLOOD CELL CO UNT {[id number]) RBC 4.52 3.80 - 5.10 Million/uL [facility] Comment:{RED BLOOD CELL COUN T {[id number]) Hemoglobin 14.5 11.7 - 15.5 g/dL [facility] Comment:{HEMOGLOBIN {[id number]) Hematocrit 42.7 35.0 - 45.0 % [facility] Comment:{HEMATOCRIT {[id number]) MCV 94.3 80.0 - 100.0 fL [facility] Comment:{MCV {[id number]) MCH 32.1 27.0 - 33.0 pg [facility] Comment:{MCH {[id number]) MCHC 34.1 32.0 - 36.0 g/dL [facility] Comment:{MCHC {[id number]) RDW 13.9 11.0 - 15.0 % [facility] Comment:{RDW {[id number]) PLT 222 140 - 400 Thousand/u L [facility] Comment:{PLATELET COUNT {[id number]) MPV 7.3(L) 7.5 - 11.5 fL [facility] Comment:{MPV {[id number]) Neutrophils # 3079 1500 - 7800 cells/uL [facility] Comment:{ABSOLUTE NEUTROPHIL S {[id number]) Lymphocytes # 1542 850 - 3900 cells/uL [facility] Comment:{ABSOLUTE LYMPHOCYTE S {[id number]) Monocytes # 567 200 - 950 cells/uL [facility] Comment:{ABSOLUTE MONOCYTES {[id number]) Eosinophils # 74 15 - 500 cells/uL [facility] Comment:{ABSOLUTE EOSINOPHIL S {[id number]) Basophils # 37 0 - 200 cells/uL [facility] Comment:{ABSOLUTE BASOPHILS {[id number]) Neutrophils % 58.1 % [facility] Comment:{NEUTROPHILS {[id number]) Lymphocytes % 29.1 % [facility] Comment:{LYMPHOCYTES {[id number]) Monocytes % 10.7 % [facility] Comment:{MONOCYTES {[id number]) Eosinophils % 1.4 % [facility] Comment:{EOSINOPHILS {[id number]) Basophils % 0.7 % [facility] Comment:{BASOPHILS {[id number]) 06/09/2011 9:19 AM EDT 06/09/2011 5:56 PM EDT Narrative Resulting Agency Comment [id number] Joi Yeung MD LAB SAME DAY RESULT Final Res ult [facility] [address] [place] [address] documented in this encounter Visit Diagnoses Diagnosis Screening for deficiency anemia Screening for other and unspecified deficiency anemia Lipid screening Screening for lipoid disorders Routine history and physical examination of adult Routine general medical examination at a health care facility Screening for endorine/nutritional/metabolic disease Screening for other and unspecified endocrine, nutritional, metabolic, and immunity disorders documented in this encounter Care Teams Concert Manager Relationship Specialty Start Date End Date Joi Yeung MD [address] [place] [address] PCP - General 10/31/05 09/01/11 Chantal Ocasio MD PCP - General 09/02/11 03/20/13 Unknown Pcp, Non Rmg PCP - General 03/21/13 05/13/17 Fatou Bruner MD [facility] [address] [place] [address] PCP - General Family Medicine 06/12/19 documented as of this encounter
--- OUTSIDE RECORDS SUMMARY | 2025-07-17 21:19 | XMS_ITS | Encounter Summary ---
Author Organization [facility] Address [address] [id number] Care Team Providers Care Underwear Trimmer Name Role Phone Joi Yeung MD Primary Care Provider [phone] Chantal Ocasio MD Primary Care Provider Unavailab le Unknown Pcp, Non Rmg Primary Care Provider Unava ilable Fatou Bruner MD Primary Care Provider [phone] Encounter Details Date Type Department Care Team (Late st Contact Info) Description 06/13/2010 Orders Only [facility] [address] [place] [address] Joi Yeung MD [address] [place] [address] Social History Tobacco Use Types Packs/Day Years [...] of this encounter Procedures * Due to [place] state law, this organization might not be sharing negative HIV tests. Procedure Name Priority Date/Time Associated Diagnosis Comments URINALYSIS, DIP ONLY ( SITE STAT ONLY) STAT (All results called to provider) 06/13/2010 12:15 PM EDT Dysuria CULTURE, URINE Routine 06/13/2010 Dysuria URINALYSIS,MICROS COPIC ONLY Routine 06/13/2010 Dysuria documented in this encounter Results * Due to [place] state law, this organization might not be sharing negative HIV tests. * (ABNORMAL) URINALYSIS, DIP ONLY ( SITE STAT ONLY) (06/13/2010 12:15 PM EDT) COLOR (URINE) Brown [facility] (CLIA# [id number]) Comment:Abnormal APPEARANCE (URINE) Cloudy [facility] (CLIA# [id number]) Comment:Abnormal SPECIFIC GRAVITY 1.020 1.001 - 1.035 [facility] (CLIA# [id number]) PH (URINE) 6.5 5.0 - 8.0 [facility] (CLIA# [id number]) PROTEIN (URINE) 3+ Neg - Neg [facility] (CLIA# [id number]) Comment:Abnormal GLUCOSE (URINE) Negative Neg - Neg [facility] (CLIA# [id number]) Ketones (Urine) Negative Neg - Neg [facility] (CLIA# [id number]) BILIRUBIN (URINE) Negative Neg - Neg [facility] (CLIA# [id number]) BLOOD (URINE) 3+ Neg - Neg [facility] (CLIA# [id number]) Comment:Abnormal WBC (URINE) 3+ Neg - Neg [facility] (CLIA# [id number]) Comment:Abnormal NITRITE (URINE) Negative Neg - Neg [facility] (CLIA# [id number]) Urine specimen obtained by clean catch procedure (specimen) 06/13/2010 12:15 PM EDT Narrative [facility] (CLIA# [id number]) - 06/13/2010 12:27 PM EDT Culture already ordered per provider. Micro added. us Joi Yeung MD LAB SAME DAY RESULT Final Res ult Performing Organization Address City/[facility]/ZIP Co de Phone Number [facility] (CLIA# [id number]) [address] [place] [address] * (ABNORMAL) URINALYSIS,MICROSCOPIC ONLY (06/13/2010) WBC (URINE) [...] RESULT Final Res ult Performing Organization Address City/[facility] Co de Phone Number [facility] [address] [place] [address] * CULTURE, URINE (06/13/2010) URINE CULTURE CLEAN VOID SEE TEXT [facility] Comment: SOURCE: URINE NO GROWTH 06/13/2010 06/14/2010 12: 22 AM EDT us Joi Yeung MD LABORATORY Final Result Performing Organization Address City/[facility] Co de Phone Number [facility] [address] [place] [address] documented in this encounter Visit Diagnoses Diagnosis Dysuria- Primary documented in this encounter Care Teams Underwear Trimmer Relationship Specialty Start Date End Date Joi Yeung MD [address] [place] [address] PCP - General 10/31/05 09/01/11 Chantal Ocasio MD PCP - General 09/02/11 03/20/13 Unknown Pcp, Non [facility] PCP - General 03/21/13 05/13/17 Fatou Bruner MD [facility] [address] [place] [address] PCP - General Family Medicine 06/12/19 documented as of this encounter
--- OUTSIDE RECORDS SUMMARY | 2025-07-17 21:20 | XMS_ITS | Encounter Summary ---
Author Organization [facility] Address [address] [place] [address] Care Team Providers Care Size Marker Name Role Phone Joi Yeung MD Primary Care Provider [phone] Chantal Ocasio MD Primary Care Provider Unavailab le Unknown Pcp, Non Rmg Primary Care Provider Unava ilable Fatou Bruner MD Primary Care Provider [phone] Encounter Details Date Type Department Care Team (Late st Contact Info) Description 03/31/2010 Orders Only [facility] [address] [place] [address] Sissy Kenyon MD [address] [place] [address] [id number] Social History Tobacco Use Types Packs/Day Years [...] of this encounter Procedures * Due to [place] [employer] law, this organization might not be sharing negative HIV tests. Procedure Name Priority Date/Time Associated Diagnosis Comments URINALYSIS, DIP ONLY ( SITE STAT ONLY) STAT (All results called to provider) 03/31/2010 11:55 AM EDT UTI (urinary tract infection) CULTURE, URINE Routine 03/31/2010 UTI (urinary tract infection) documented in this encounter Results * Due to [place] state law, this organization might not be sharing negative HIV tests. * URINALYSIS, DIP ONLY ( SITE STAT ONLY) (03/31/2010 11:55 AM EDT) COLOR (URINE) straw [facility] (CLIA# [id number]) APPEARANCE (URINE) clear [facility] (CLIA# [id number]) SPECIFIC GRAVITY 1.005 1.001 - 1.035 [facility] (CLIA# [id number]) PH (URINE) 6.0 5.0 - 8.0 [facility] (CLIA# [id number]) PROTEIN (URINE) negative Neg - Neg [facility] (CLIA# [id number]) GLUCOSE (URINE) negative Neg - Neg [facility] (CLIA# [id number]) Ketones (Urine) negative Neg - Neg [facility] (CLIA# [id number]) BILIRUBIN (URINE) negative Neg - Neg [facility] (CLIA# [id number]) BLOOD (URINE) negative Neg - Neg [facility] (CLIA# [id number]) WBC (URINE) negative Neg - Neg [facility] (CLIA# [id number]) NITRITE (URINE) negative Neg - Neg [facility] (CLIA# [id number]) Urine specimen (specimen) 03/31/2010 11:55 AM EDT Impressions [facility] (CLIA# [id number]) - 03/31/2010 11:56 AM EDT Culture already ordered per provider. Sissy Kenyon MD LAB SAME DAY RESULT Final Resul t Performing Organization Address City/[facility]/ZIP Co de Phone Number [facility] (CLIA# [id number]) [address] [place] [address] * (ABNORMAL) CULTURE, URINE (03/31/2010) URINE CULTURE CLEAN VOID SEE TEXT(A) [facility] Comment: SOURCE: URINE 1,000-10,000 CFU/ML GRAM NEGATIVE RODS 03/31/2010 03/31/2010 8:4 2 PM EDT Sissy Kenyon MD LABORATORY Final Result Performing Organization Address City/[facility] de Phone Number [facility] [address] [place] [address] documented in this encounter Visit Diagnoses Diagnosis UTI (urinary tract infection) Urinary tract infection, site not specified documented in this encounter Care Teams Size Marker Relationship Specialty Start Date End Date Joi Yeung MD [address] [place] [address] PCP - General 10/31/05 09/01/11 Chantal Ocasio MD PCP - General 09/02/11 03/20/13 Unknown Pcp, Non Rmg PCP - General 03/21/13 05/13/17 Fatou Bruner MD [address] [place] [address] PCP - General Family Medicine 06/12/19 documented as of this encounter
--- OUTSIDE RECORDS SUMMARY | 2025-07-17 21:20 | XMS_ITS | Encounter Summary ---
Author Organization [facility] Address [address] [phone] Care Team Providers Care Hydro Electric Station Operator Name Role Phone Joi Yeung MD Primary Care Provider [phone] Chantal Ocasio MD Primary Care Provider Unavailab le Unknown Pcp, Non Rmg Primary Care Provider Unava ilable Fatou Bruner MD Primary Care Provider [phone] Encounter Details Date Type Department Care Team (Late st Contact Info) Description 03/03/2010 Orders Only [facility] [address] [place] [address] Joi Yeung MD [address] [place] [address] Social History Tobacco Use Types Packs/Day Years [...] of this encounter Procedures * Due to [place] state law, this organization might not be sharing negative HIV tests. Procedure Name Priority Date/Time Associated Diagnosis Comments LIPID PANEL + CARDIAC RISK WITH REFLEX TO LDL DIRECT Routine 03/03/2010 Palpitations documented in this encounter Results * Due to [place] [employer] law, this organization might not be sharing [...] MD LABORATORY Final Result Performing Organization Address City/State/[facility] Co de Phone Number [facility] [address] [place] [address] documented in this encounter Visit Diagnoses Diagnosis Palpitations documented in this encounter Care Teams Hydro Electric Station Operator Relationship Specialty Start Date End Date Joi Yeung MD [address] [place] [address] PCP - General 10/31/05 09/01/11 Chantal Ocasio MD PCP - General 09/02/11 03/20/13 Unknown Pcp, Non Rmg PCP - General 03/21/13 05/13/[address] [facility] [address] [place] [address] PCP - General Family Medicine 06/12/19 documented as of this encounter
--- OUTSIDE RECORDS SUMMARY | 2025-07-17 21:20 | XMS_ITS | Encounter Summary ---
Author Organization [facility] Address [address] [phone] Care Team Providers Care Commanding Officer Motorized Squad Name Role Phone Joi Yeung MD Primary Care Provider [phone] Chantal Ocasio MD Primary Care Provider Unavailab le Unknown Pcp, Non Rmg Primary Care Provider Unava ilable Fatou Bruner MD Primary Care Provider [phone] Encounter Details Date Type Department Care Team (Late st Contact Info) Description 05/02/2009 Orders Only [facility] [address] [place] [address] Joi Yeung MD [address] [place] [address] Social History Tobacco Use Types Packs/Day Years [...] of this encounter Procedures * Due to [place] state law, this organization might not be sharing negative HIV tests. Procedure Name Priority Date/Time Associated Diagnosis Comments GAMMA GLUTAMYLTRANSFERASE (GGT), SERUM Routine 05/02/2009 Abdominal Pain documented in this encounter Results * Due to [facility] law, this organization might not be sharing negative HIV tests. * (ABNORMAL) GAMMA GLUTAMYLTRANSFERASE (GGT), SERUM (05/02/2009) GGT (GAMMA GLUTAMYL TRANSFERASE) 148(H) 3 - 65 U/L [facility] 05/02/2009 05/02/2009 7:0 6 PM EDT Joi Yeung MD LABORATORY Final Result Performing Organization Address City/State/[facility] Co de Phone Number [facility] [address] [place] [address] documented in this encounter Visit Diagnoses Diagnosis Abdominal pain Abdominal pain, unspecified site documented in this encounter Care Teams Commanding Officer Motorized Squad Relationship Specialty Start Date End Date Joi Yeung MD [address] [place] [address] PCP - General 10/31/05 09/01/11 Chantal Ocasio MD PCP - General 09/02/11 03/20/13 Unknown Pcp, Non Rmg PCP - General 03/21/13 05/13/17 Fatou Bruner MD [address] [address] PCP - General Family Medicine 06/12/19 documented as of this encounter
--- OUTSIDE RECORDS SUMMARY | 2025-07-17 21:20 | XMS_ITS | Encounter Summary ---
Author Organization [facility] Address [address] [facility] [address] [place] [address] Phone Care Team Providers Care Wood Last Maker Name Role Phone Martha Grissom TRAVELING BUYER Primary Care Provider [phone] Rod Forbes MD Unavailable [phone] Bell Gil CNP Unavailable Yas Tejeda TRAVELING BUYER Unavailable [phone] Srikanth Landa MD Primary Care Provider [phone] Encounter Details Date Type Department Care Team (Late st Contact Info) Description 05/05/2022 Procedure Pass [address] [address] Social History Tobacco Use Types Packs/Day Years [...] (Late st Contact Info) Description 03/05/[address] [address] 03/05/[address] [address] 07/24/2025 1:45 PM EST Office Visit [facility] General Surgical Care [address] [place] [address] Sarah Bean MD [address] [facility], 2nd [place] [address] 08/30/2025 2:30 PM EST Appointment [facility], Ct Scan - [address] [address] Rod Forbes MD [address] [place] [address] 09/06/2025 1:40 PM EST Blood Draw [facility] [address] [address] Rod Forbes MD [address] [place] [address] 09/06/2025 2:40 PM EST Office Visit [facility] at [address] [address] Rod Forbes MD [address] [place] [address] documented as of this encounter Visit Diagnoses Not on filedocumented in this encounter Care Teams Wood Last Maker Relationship Specialty Start Date End Date Martha Grissom NP [address] [place] [address] PCP - General 04/24/22 06/12/24 Srikanth Landa MD [address] [place] [address] PCP - General Family Medicine 06/13/24 Rod Forbes MD [address] [place] [address] [email or web address] Primary Oncologist Medical Oncology 04/24/22 Bell Gil CNP [address] [place] [address] [email or web address] Nurse Practitioner Medical Oncology 05/18/22 Yas Tejeda NP [address] [place] [address] [email or web address] Nurse Practitioner Medical Oncology 07/09/22 02/27/25 documented as of this encounter Additional Source Comments The information contained in this document represents components of the legal health record. It is not the complete legal health record.[facility]
--- OUTSIDE RECORDS SUMMARY | 2025-07-17 21:20 | XMS_ITS | Encounter Summary ---
Author Organization [facility] Address [address] [phone] Care Team Providers Care Vmware Architect Name Role Phone Joi Yeung MD Primary Care Provider [phone] Chantal Ocasio MD Primary Care Provider Unavailab le Unknown Pcp, Non Rmg Primary Care Provider Unava ilable Fatou Bruner MD Primary Care Provider [phone] Encounter Details Date Type Department Care Team (Late st Contact Info) Description 05/16/2009 Orders Only [facility] [address] [place] [address] Joi Yeung MD [address] [place] [address] Social History Tobacco Use Types Packs/Day Years [...] this encounter Results * Due to [place] [employer] law, this organization might not be sharing [...] MD LABORATORY Final Result Performing Organization Address [facility] de Phone Number [facility] [address] [place] [address] * (ABNORMAL) GAMMA GLUTAMYLTRANSFERASE (GGT), SERUM (05/16/2009) GGT (GAMMA GLUTAMYL TRANSFERASE) 109(H) 3 - 65 U/L [facility] 05/16/2009 05/16/2009 6:0 0 PM EDT us Joi Yeung MD LABORATORY Final Result Performing Organization Address [facility] Co de Phone Number [facility] [address] [place] [address] documented in this encounter Visit Diagnoses Diagnosis Nonspecific abnormal results of liver function study documented in this encounter Care Teams Vmware Architect Relationship Specialty Start Date End Date Joi Yeung MD [address] [place] [address] PCP - General 10/31/05 09/01/11 Chantal Ocasio MD PCP - General 09/02/11 03/20/13 Unknown Pcp, Non Rmg PCP - General 03/21/13 05/13/17 Fatou Bruner MD [address] [address] PCP - General Family Medicine 06/12/19 documented as of this encounter
--- OUTSIDE RECORDS SUMMARY | 2025-07-17 21:20 | XMS_ITS | Encounter Summary ---
Author Organization [facility] Address [address] [place] [address] Care Team Providers Care Senior Catering Sales Manager Name Role Phone Unavailable Primary Care Provider Unavailabl e Encounter Details Date Type Department Care Team (Late st Contact Info) Description 03/26/2023 Lab Requisition [facility] Pathology & Laboratory Medicine - [facility] [address] [place] [address] Outr Resulting Lab, Provider Social History Tobacco [...] 30 - 100 ng/mL 03/29/2023 12:28 EDT [facility] Comment: Vitamin D 25,OH Interpretive Ranges: Deficiency: <10.0 ng/mL Insufficiency: 10.0 - 30.0 ng/mL Sufficiency: 30.0 - 100.0 ng/mL Toxicity: >100.0 ng/mL Blood VENOUS BLOOD / Unknown 03/26/2023 11:57 EDT 03/26/2023 21:11 EDT us Provider Outr Resulting Lab CHEMISTRY & BLOOD GA S ORDERABLES Final Result [facility] [address] [place] [address] documented in this encounter Visit Diagnoses Not on filedocumented in this encounter
--- OUTSIDE RECORDS SUMMARY | 2025-07-17 21:20 | XMS_ITS | Encounter Summary ---
Author Organization [facility] Address [address] [place] [address] Care Team Providers Care Size Roller Operator Name Role Phone Unavailable Primary Care Provider Unavailabl e Encounter Details Date Type Department Care Team (Late st Contact Info) Description 12/23/2020 Lab Requisition [facility] Pathology & Laboratory Medicine - [facility] [address] [place] [address] Outr Resulting Lab, Provider Social History Tobacco [...] 30.0 - 100.0 ng/mL 12/24/2020 10:13 EDT [facility] Comment: Vitamin D 25,OH Interpretive Ranges: Deficiency: <10.0 ng/mL Insufficiency: 10.0 - 30.0 ng/mL Sufficiency: 30.0 - 100.0 ng/mL Toxicity: >100.0 ng/mL Blood VENOUS BLOOD / Unknown 12/23/2020 9:44 EDT 12/23/2020 21:51 EDT us Provider Outr Resulting Lab CHEMISTRY & BLOOD GA S ORDERABLES Final Result [facility] [address] [place] [address] documented in this encounter Visit Diagnoses Not on filedocumented in this encounter
--- OUTSIDE RECORDS SUMMARY | 2025-07-17 21:20 | XMS_ITS | Encounter Summary ---
Author Organization [facility] Address [address] [place] [address] Care Team Providers Care Outside Salesperson Name Role Phone Unavailable Primary Care Provider Unavailabl e Encounter Details Date Type Department Care Team (Late st Contact Info) Description 07/22/2021 Lab Requisition [facility] Pathology & Laboratory Medicine - [facility] [address] [place] [address] Outr Resulting Lab, Provider Social History Tobacco [...] 30 - 100 ng/mL 07/23/2021 10:44 EST [facility] Comment: Vitamin D 25,OH Interpretive Ranges: Deficiency: <10.0 ng/mL Insufficiency: 10.0 - 30.0 ng/mL Sufficiency: 30.0 - 100.0 ng/mL Toxicity: >100.0 ng/mL Blood VENOUS BLOOD / Unknown 07/22/2021 13:43 EST 07/22/2021 21:24 EST us Provider Outr Resulting Lab CHEMISTRY & BLOOD GA S ORDERABLES Final Result [facility] [address] [place] [address] documented in this encounter Visit Diagnoses Not on filedocumented in this encounter
--- OUTSIDE RECORDS SUMMARY | 2025-07-17 21:20 | XMS_ITS | Encounter Summary ---
Author Organization [facility] Address [address] [place] [address] Care Team Providers Care Computer Systems Consultant Name Role Phone Joi Yeung MD Primary Care Provider [phone] Chantal Ocasio MD Primary Care Provider Unavailab le Unknown Pcp, Non Rmg Primary Care Provider Unava ilable Fatou Bruner MD Primary Care Provider [phone] Encounter Details Date Type Department Care Team (Late st Contact Info) Description 09/02/2007 Orders [facility] Internal Medicine [address] [place] [address] Joi Yeung MD [address] [place] [id number] Social History Tobacco Use Types Packs/Day Years [...] of this encounter Procedures * Due to [place] state law, this organization might not be sharing negative HIV tests. Procedure Name Priority Date/Time Associated Diagnosis Comments EKG-TO BE READ & BILLED BY ADULT OR PEDIATRIC CARDIOLOGY Routine 09/02/2007 12:56 PM EST Arrhythmia documented in this encounter Visit Diagnoses Diagnosis Arrhythmia Cardiac dysrhythmia, unspecified documented in this encounter Care Teams Computer Systems Consultant Relationship Specialty Start Date End Date Joi Yeung MD [address] [place] [address] PCP - General 10/31/05 09/01/11 Chantal Ocasio MD PCP - General 09/02/11 03/20/13 Unknown Pcp, Non Rmg PCP - General 03/21/13 05/13/17 Fatou Bruner MD [address] [address] PCP - General Family Medicine 06/12/19 documented as of this encounter
--- OUTSIDE RECORDS SUMMARY | 2025-07-17 21:20 | XMS_ITS | Encounter Summary ---
Author Organization [facility] Address [address] [place] [address] Care Team Providers Care Laundry Pricing Clerk Name Role Phone Unavailable Primary Care Provider Unavailabl e Encounter Details Date Type Department Care Team (Late st Contact Info) Description 01/20/2022 Lab Requisition [facility] Pathology & Laboratory Medicine - [facility] [address] [place] [address] Outr Resulting Lab, Provider Social History Tobacco [...] 30 - 100 ng/mL 01/21/2022 12:[address] [facility] Comment: Vitamin D 25,OH Interpretive Ranges: Deficiency: <10.0 ng/mL Insufficiency: 10.0 - 30.0 ng/mL Sufficiency: 30.0 - 100.0 ng/mL Toxicity: >100.0 ng/mL Blood VENOUS BLOOD / Unknown 01/20/2022 11:21 EDT 01/20/2022 21:42 EDT us Provider Outr Resulting Lab CHEMISTRY & BLOOD GA S ORDERABLES Final Result [facility] [address] [place] [address] documented in this encounter Visit Diagnoses Not on filedocumented in this encounter
--- OUTSIDE RECORDS SUMMARY | 2025-07-17 21:20 | XMS_ITS | Encounter Summary ---
Author Organization [facility] Address [address] [place] [id number] Care Team Providers Care Continuous Improvement Manager Name Role Phone Joi Yeung MD Primary Care Provider [phone] Chanatl Ocasio MD Primary Care Provider Unavailab le Unknown Pcp, Non Rmg Primary Care Provider Unava ilable Fatou Bruner MD Primary Care Provider [phone] Encounter Details Date Type Department Care Team (Late st Contact Info) Description 02/26/2009 Orders Only [facility] [address] [place] [address] Joi Yeung MD [address] [place] [address] Social History Tobacco Use Types Packs/Day Years [...] am and patient advised to go to [facility] as direct admit. documented in this [...] encounter Results * Due to [place] state law, this organization might not be sharing negative HIV tests. * (ABNORMAL) GAMMA GLUTAMYLTRANSFERASE (GGT), SERUM (02/26/2009) GGT (GAMMA GLUTAMYL TRANSFERASE) 122(H) 3 - 65 U/L [facility] 02/26/2009 02/26/2009 2:2 3 PM EDT us Joi Yeung MD LABORATORY Final Result [facility] [address] [place] [address] * LDH (02/26/2009) LDH 155 120 - 250 U/L [facility] 02/26/2009 02/26/2009 2:2 3 PM EDT Joi Yeung MD LABORATORY Final Result Performing Organization Address [facility]/ZIP Co de Phone Number [facility] [address] [place] [address] * (ABNORMAL) URINALYSIS, COMPLETE (DIP & MICRO) [...] RESULT Final Res ult Performing Organization Address City/[facility]/ZIP Co de Phone Number [facility] [address] [place] [address] * HEPATITIS PANEL, ACUTE (02/26/2009) Pathologist [facility] HEPATITIS B SURFACE ANTIGEN NEUTRALIZATION NON-REACT GLYNN NON-REACT GLYNN [facility] HEPATITIS C AB NON-REACT GLYNN NON-REACT GLYNN [facility] HEPATITIS A AB.IGM NON-REACT GLYNN NON-REACT GLYNN [facility] HEPATITIS B CORE AB.IGM NON-REACT GLYNN NON-REACT GLYNN [facility] 02/26/2009 02/26/2009 2:2 3 PM EDT us Joi Yeung MD LABORATORY Final Result Performing Organization Address [facility] Co de Phone Number [facility] [address] [place] [address] * (ABNORMAL) SED RATE ESR (02/26/2009) [facility] ESR (ERYTHROCYTE SEDIMENTATION RATE) 75(H) 0 - 30 MM/HR [facility] 02/26/2009 02/26/2009 2:2 3 PM EDT us Joi Yeung MD LAB SAME DAY RESULT Final Res ult Performing Organization Address [facility] de Phone Number [facility] [address] [place] [address] * (ABNORMAL) HEPATIC FUNCTION PANEL (02/26/2009) [facility] Total Protein 6.7 6.2 - 8.3 G/DL [...] MD LABORATORY Final Result Performing Organization Address [facility] de Phone Number [facility] [address] [place] [address] * (ABNORMAL) BASIC METABOLIC PANEL W/GLOMERULAR FILTRATION RATE (EGFR) (02/26/2009) Pathologist [facility] CALCIUM 9.0 8.6 - 10.2 MG/DL [facility] [...] with more precise needs for GFR calculation. Gamal [facility] LABORATORY Final Result Performing Organization Address [facility] de Phone Number [facility] [address] [place] [address] * (ABNORMAL) CBC 5 PART DIFF (02/26/2009) Pathologist [facility] WHITE BLOOD COUNT 9.1 3.8 - 10.8 [...] RESULT Final Res ult [facility] [address] [place] [address] documented in this encounter Visit Diagnoses Diagnosis Abdominal pain Abdominal pain, unspecified site documented in this encounter Care Teams Continuous Improvement Manager Relationship Specialty Start Date End Date Joi Yeung MD [address] [place] [address] PCP - General 10/31/05 09/01/11 Chantal Ocasio MD PCP - General 09/02/11 03/20/13 Unknown Pcp, Non Rmg PCP - General 03/21/13 05/13/17 Fatou Bruner MD [facility] [address] [place] [address] PCP - General Family Medicine 06/12/19 documented as of this encounter
--- OUTSIDE RECORDS SUMMARY | 2025-07-17 21:20 | XMS_ITS | Encounter Summary ---
Author Organization [facility] Address [address] [place] [id number] Care Team Providers Care Illustrator Set Name Role Phone Joi Yeung MD Primary Care Provider [phone] Chantal Ocasio MD Primary Care Provider Unavailab le Unknown Pcp, Non Rmg Primary Care Provider Unava ilable Fatou Bruner MD Primary Care Provider [phone] Encounter Details Date Type Department Care Team (Late st Contact Info) Description 07/22/2009 Orders Only [facility] [address] [place] [address] Joi Yeung MD [address] [place] [address] Social History Tobacco Use Types Packs/Day Years [...] this encounter Procedures * Due to [place] state law, this organization might not be sharing negative HIV tests. Procedure Name Priority Date/Time Associated Diagnosis Comments GAMMA GLUTAMYLTRANSFERASE (GGT), SERUM Routine 07/22/2009 Nonspecific abnormal results of liver function study HEPATIC FUNCTION PANEL Routine 07/22/2009 Hepatitis B infection documented in this encounter Results * Due to [place] [employer] law, this organization might not be sharing [...] MD LABORATORY Final Result Performing Organization Address [facility] Co de Phone Number [facility] [address] [place] [address] * (ABNORMAL) GAMMA GLUTAMYLTRANSFERASE (GGT), SERUM (07/22/2009) GGT (GAMMA GLUTAMYL TRANSFERASE) 69(H) 3 - 65 U/L [facility] 07/22/2009 07/22/2009 5:5 2 PM EST us Joi Yeung MD LABORATORY Final Result Performing Organization Address City/[facility] Co de Phone Number [facility] [address] [place] [address] documented in this encounter Visit Diagnoses Diagnosis Nonspecific abnormal results of liver function study Hepatitis B infection Viral hepatitis B without mention of hepatic coma, acute or unspecified, without mention of hepatitis delta documented in this encounter Care Teams Illustrator Set Relationship Specialty Start Date End Date Joi Yeung MD [address] [place] [address] PCP - General 10/31/05 09/01/11 Chantal Ocasio MD PCP - General 09/02/11 03/20/13 Unknown Pcp, Non [facility] PCP - General 03/21/13 05/13/17 Fatou Bruner MD [facility] [address] [place] [address] PCP - General Family Medicine 06/12/19 documented as of this encounter
--- OUTSIDE RECORDS SUMMARY | 2025-07-17 21:20 | XMS_ITS | Encounter Summary ---
Author Organization [facility] Address [address] [place] [address] Care Team Providers Care Fire Investigation Lieutenant Name Role Phone Unavailable Primary Care Provider Unavailabl e Encounter Details Date Type Department Care Team (Late st Contact Info) Description 08/26/2022 Lab Requisition [facility] Pathology & Laboratory Medicine - [facility] [address] [place] [address] Outr Resulting Lab, Provider Social History Tobacco [...] 30 - 100 ng/mL 08/27/2022 10:16 EST [facility] Comment: Vitamin D 25,OH Interpretive Ranges: Deficiency: <10.0 ng/mL Insufficiency: 10.0 - 30.0 ng/mL Sufficiency: 30.0 - 100.0 ng/mL Toxicity: >100.0 ng/mL Blood VENOUS BLOOD / Unknown 08/26/2022 10:15 EST 08/26/2022 21:11 EST us Provider Outr Resulting Lab CHEMISTRY & BLOOD GA S ORDERABLES Final Result [facility] [address] [place] [address] documented in this encounter Visit Diagnoses Not on filedocumented in this encounter
--- OUTSIDE RECORDS SUMMARY | 2025-07-17 21:20 | XMS_ITS | Encounter Summary ---
Author Organization [facility] Address [address] [place] [address] Care Team Providers Care Collar Stitcher Name Role Phone Unavailable Primary Care Provider Unavailabl e Encounter Details Date Type Department Care Team (Late st Contact Info) Description 01/02/2020 Lab Requisition [facility] Pathology & Laboratory Medicine - [facility] [address] [place] [address] Outr Resulting Lab, Provider Social History Tobacco [...] Result [facility] [address] [place] [address] documented in this encounter Visit Diagnoses Not on filedocumented in this encounter
--- OUTSIDE RECORDS SUMMARY | 2025-07-17 21:20 | XMS_ITS | Encounter Summary ---
Author Organization [facility] Address [address] [place] [id number] Care Team Providers Care Securities Lending Trader Name Role Phone Joi Yeung MD Primary Care Provider Chantal Ocasio MD Primary Care Provider Unavailab le Unknown Pcp, Non Rmg Primary Care Provider Unava ilable Fatou Bruner MD Primary Care Provider [phone] Encounter Details Date Type Department Care Team (Late st Contact Info) Description 08/22/2009 Orders Only [facility] [address] [place] [address] Joi Yeung MD [address] [place] [address] Social History Tobacco Use Types Packs/Day Years [...] encounter Procedures * Due to [place] state law, this organization might not [...] encounter Results * Due to [place] [employer] law, this organization might not be sharing negative HIV tests. * (ABNORMAL) URINALYSIS, DIP ONLY ( SITE STAT ONLY) (08/22/2009 10:04 AM EST) COLOR (URINE) straw [facility] (CLIA# [id number]) APPEARANCE (URINE) clear [facility] (CLIA# [id number]) SPECIFIC GRAVITY 1.010 1.001 - 1.035 [facility] (CLIA# [id number]) PH (URINE) 6.0 5.0 - 8.0 [facility] (CLIA# [id number]) PROTEIN (URINE) negative Neg - Neg [facility] (CLIA# [id number]) GLUCOSE (URINE) negative Neg - Neg [facility] (CLIA# [id number]) Ketones (Urine) negative Neg - Neg [facility] (CLIA# [id number]) BILIRUBIN (URINE) negative Neg - Neg [facility] (CLIA# [id number]) BLOOD (URINE) 2+(A) Neg - Neg [facility] (CLIA# [id number]) WBC (URINE) trace(A) Neg - Neg [facility] (CLIA# [id number]) NITRITE (URINE) negative Neg - Neg [facility] (CLIA# [id number]) Urine specimen (specimen) 08/22/2009 10:04 AM EST Impressions [facility] (CLIA# [id number]) - 08/22/2009 10:05 AM EST Micro added. Culture already ordered per provider. Joi Yeung MD LAB SAME DAY RESULT Final Res ult Performing Organization Address City/[facility]/ZIP Co de Phone Number [facility] (CLIA# [id number]) [address] [place] [address] * (ABNORMAL) URINALYSIS,MICROSCOPIC ONLY (08/22/2009) WBC (URINE) [...] RESULT Final Res ult Performing Organization Address City/[facility]/ZIP Co de Phone Number [facility] [address] [place] [address] * (ABNORMAL) CULTURE, URINE (08/22/2009) URINE CULTURE [...] MD LABORATORY Final Result [facility] [address] [place] [address] documented in this encounter Visit Diagnoses Diagnosis UTI (urinary tract infection)- Primary Urinary tract infection, site not specified documented in this encounter Care Teams Securities Lending Trader Relationship Specialty Start Date End Date Joi Yeung MD [address] [place] [address] PCP - General 10/31/05 09/01/11 Chantal Ocasio MD PCP - General 09/02/11 03/20/13 Unknown Pcp, Non Rmg PCP - General 03/21/13 05/13/17 Fatou Bruner MD [address] [address] PCP - General Family Medicine 06/12/19 documented as of this encounter
--- OUTSIDE RECORDS SUMMARY | 2025-07-17 21:20 | XMS_ITS | Encounter Summary ---
Author Organization [facility] Address [address] [place] [address] Care Team Providers Care Working Foreman Name Role Phone Joi Yeung MD Primary Care Provider [phone] Chantal Ocasio MD Primary Care Provider Unavailab le Unknown Pcp, Non Rmg Primary Care Provider Unava ilFatou Rico MD Primary Care Provider [phone] Encounter Details Date Type Department Care Team (Late st Contact Info) Description 10/07/2008 Orders Only [facility] [address] [place] [id number] Sam White MD [facility] [address] [address] Social History Tobacco Use Types Packs/Day Years [...] of this encounter Procedures * Due to [facility] law, this organization might not be sharing negative HIV tests. Procedure Name Priority Date/Time Associated Diagnosis Comments MICROSCOPIC URINE STAT (All results called to provider) 10/07/2008 CULTURE, URINE Routine 10/07/2008 UTI (Urinary Tract Infection) URINALYSIS, DIPSTICK WITH REFLEX MICROSCOPIC STAT (All results called to provider) 10/07/2008 UTI (Urinary Tract Infection) documented in this encounter Results * Due to [employer] law, this organization might not be sharing [...] EST Report Comments: PLEASE FAX RESULTS TO [facility], THANK-YOU Sam White MD LABORATORY Final Resul t * CULTURE, URINE (10/07/2008) URINE CULTURE CLEAN VOID SEE TEXT Comment: SOURCE: URINE NO GROWTH 10/07/2008 10/07/2008 11: 56 AM EST Narrative 10/09/2008 8:19 AM EST Report Comments: PLEASE FAX RESULTS TO [facility], THANK-YOU us Sam White MD LABORATORY Final [...] EST Report Comments: PLEASE FAX RESULTS TO [facility], THANK-YOU us Sam White MD LAB SAME DAY RESULT Final R esult documented in this encounter Visit Diagnoses Diagnosis UTI (urinary tract infection) Urinary tract infection, site not specified documented in this encounter Care Teams Working Foreman Relationship Specialty Start Date End Date Joi Yeung MD [address] [place] [address] PCP - General 10/31/05 09/01/11 Chantal Ocasio MD PCP - General 09/02/11 03/20/13 Unknown Pcp, Non Rmg PCP - General 03/21/13 05/13/17 Fatou Bruner MD [address] [address] PCP - General Family Medicine 06/12/19 documented as of this encounter
--- OUTSIDE RECORDS SUMMARY | 2025-07-17 21:20 | XMS_ITS | Encounter Summary ---
Author Organization [facility] Address [address] [place] [id number] Care Team Providers Care Extruder Name Role Phone Joi Yeung MD Primary Care Provider [phone] Chantal Ocasio MD Primary Care Provider Unavailab le Unknown Pcp, Non Rmg Primary Care Provider Unava ilable Fatou Bruner MD Primary Care Provider [phone] Encounter Details Date Type Department Care Team (Late st Contact Info) Description 04/25/2008 Orders Only [facility] [address] [place] [address] Joi Yeung MD [address] [place] [address] Social History Tobacco Use Types Packs/Day Years [...] 04/25/2008 Routine General Medical Examination at a [facility] THYROID CASCADE Routine 04/25/2008 Routine General Medical Examination at a [facility] OCCULT BLOOD (STOOL GUAIAC) 3 SAMPLES Routine 04/25/2008 Special Screening for Malignant Neoplasms, Colon HEPATIC FUNCTION PANEL Routine 04/25/2008 Routine General Medical Examination at a [facility] Facility documented in this encounter Results * Due to [place] [employer] law, this organization might not be sharing [...] mellitus documented in this encounter Care Teams Extruder Relationship Specialty Start Date End Date Joi Yeung MD [address] [place] [address] PCP - General 10/31/05 09/01/11 Chantal Ocasio MD PCP - General 09/02/11 03/20/13 Unknown Pcp, Non Rmg PCP - General 03/21/13 05/13/17 Fatou Bruner MD [facility] [address] [place] [address] PCP - General Family Medicine 06/12/19 documented as of this encounter
--- OUTSIDE RECORDS SUMMARY | 2025-07-17 21:20 | XMS_ITS | Clinical Summary ---
Author Organization [facility] Address [address] [place] [address] Care Team Providers Care National Sales Manager Name Role Phone Unavailable Primary [...] - 1-dose 75+ series) 2020 COVID-19 Vaccine (2024- season) 2025
--- OUTSIDE RECORDS SUMMARY | 2025-07-17 21:20 | XMS_ITS | Encounter Summary ---
Author Organization [facility] Address [address] [id number] Care Team Providers Care Physician Credentialing Specialist Name Role Phone Joi Yeung MD Primary Care Provider [phone] Chantal Ocasio MD Primary Care Provider Unavailab le Unknown Pcp, Non Rmg Primary Care Provider Unava ilable Fatou Bruner MD Primary Care Provider [phone] Encounter Details Date Type Department Care Team (Late st Contact Info) Description 09/10/2007 Orders Only [facility] [address] [place] [address] Joi Yeung MD [address] [place] [address] Social History Tobacco Use Types Packs/Day Years [...] of this encounter Procedures * Due to [place] state law, this organization might not be sharing negative HIV tests. Procedure Name Priority Date/Time Associated Diagnosis Comments BASIC METABOLIC PANEL Routine 09/10/2007 PVC (Premature Ventricular Contraction) PHOSPHORUS Routine 09/10/2007 PVC (Premature Ventricular Contraction) MAGNESIUM Routine 09/10/2007 PVC (Premature Ventricular Contraction) documented in this encounter Results * Due to [place] state law, this organization might not be sharing negative HIV tests. * PHOSPHORUS (09/10/2007) PHOSPHATE 3.2 2.5 - 4.5 MG/DL [facility] (CLIA# [id number]) 09/10/2007 09/10/2007 11: 53 PM EST Joi Yeung MD LABORATORY Final Result Performing Organization Address [facility] de Phone Number [facility] (CLIA# [id number]) [address] [place] [address] * MAGNESIUM (09/10/2007) MAGNESIUM 2.0 1.5 - 2.5 MG/DL [facility] (CLIA# [id number]) 09/10/2007 09/10/2007 11: 53 PM EST Joi Yeung MD LABORATORY Final Result Performing Organization Address [facility] de Phone Number [facility] (CLIA# [id number]) [address] [place] [address] * BASIC METABOLIC PANEL (09/10/2007) CALCIUM 10.1 8.6 - 10.2 MG/DL [facility] (CLIA# [id number]) BUN 15 7 - 25 MG/DL [facility] (CLIA# [id number]) CREATININE 0.85 0.50-1.30/ 1.20 MG/DL [facility] (CLIA# [id number]) BUN/Creatinine Ratio 18 6 - 25 [facility] (CLIA# [id number]) Glucose 85 65 - 99 MG/DL [facility] (CLIA# [id number]) SODIUM 140 135 - 146 MMOL/L [facility] (CLIA# [id number]) POTASSIUM 4.4 3.5 - 5.3 MMOL/L [facility] (CLIA# [id number]) CHLORIDE 104 98 - 110 MMOL/L [facility] (CLIA# [id number]) CARBON DIOXIDE 24 21 - 33 MMOL/L [facility] (CLIA# [id number]) 09/10/2007 09/10/2007 11: 53 PM EST Joi Yeung MD LAB SAME DAY RESULT Final Res ult [facility] (CLIA# [id number]) [address] [place] [address] documented in this encounter Visit Diagnoses Diagnosis PVC (premature ventricular contraction) Other premature beats documented in this encounter Care Teams Physician Credentialing Specialist Relationship Specialty Start Date End Date Joi Yeung MD [address] [place] [address] PCP - General 10/31/05 09/01/11 Chantal Ocasio MD PCP - General 09/02/11 03/20/13 Unknown Pcp, Non Rmg PCP - General 03/21/13 05/13/17 Fatou Bruner MD [facility] [address] [place] [address] PCP - General Family Medicine 06/12/19 documented as of this encounter
--- OUTSIDE RECORDS SUMMARY | 2025-07-17 21:21 | XMS_ITS | Encounter Summary ---
Author Organization [facility] Address [address] [place] [address] Care Team Providers Care Pig Farmer Name Role Phone Unavailable Primary Care Provider Unavailabl e Encounter Details Date Type Department Care Team (Late st Contact Info) Description 12/23/[address] [facility] Pathology & Laboratory Medicine - [facility] [address] [place] [address] Outr Resulting Lab, Provider Social History Tobacco [...] 19 - 88 pg/mL 12/24/2020 8:59 EDT [facility] Blood VENOUS BLOOD / Unknown 12/23/2020 9:44 EDT 12/23/2020 21:50 EDT us Provider Outr Resulting Lab CHEMISTRY & BLOOD GA S ORDERABLES Final Result [facility] [address] [place] [address] documented in this encounter Visit Diagnoses Not on filedocumented in this encounter
--- OUTSIDE RECORDS SUMMARY | 2025-07-17 21:21 | XMS_ITS | Encounter Summary ---
Author Organization [facility] Address [address] [facility] [address] [place] [address] Phone Care Team Providers Care Assistant Professor Of Theater Name Role Phone Martha Grissom POLICE SPECIALIST Primary Care Provider [phone] Rod Forbes MD Unavailable [phone] Bell Gil OPERATING ROOM SURGICAL TECHNICIAN Unavailable Yas Tejeda POLICE SPECIALIST Unavailable [phone] Srikanth Landa MD Primary Care Provider [phone] Encounter Details Date Type Department Care Team (Late st Contact Info) Description 11/08/2023 Procedure Pass OR Admitting Dept - Virtual Department [address] [place] [address] Social History Tobacco Use Types Packs/Day Years [...] st Contact Info) Description 03/05/2025 Procedure Pass [address] [address] 03/05/2025 Procedure Pass [address] [address] 07/24/2025 1:45 PM EST Office Visit [facility] General Surgical Care [address] [place] [address] Sarah Bean MD [address] [place] [address], 2nd [place] [address] 08/30/2025 2:30 PM EST Appointment [address] [address] Rod Forbes MD [address] [place] [address] [email or web address] 09/06/2025 1:40 PM EST Blood Draw [facility] [address] [place] [address] Rod Forbes MD [address] [place] [address] 09/06/2025 2:40 PM EST Office Visit [facility] at [address] [address] Rod Forbes MD [address] [place] [address] documented as of this encounter Visit Diagnoses Not on filedocumented in this encounter Care Teams Assistant Professor Of Theater Relationship Specialty Start Date End Date Martha Grissom NP [address] [place] [address] PCP - General 04/24/22 06/12/24 Srikanth Landa MD [address] [place] [address] PCP - General Family Medicine 06/13/24 Rod Forbes MD [address] [place] [address] [email or web address] Primary Oncologist Medical Oncology 04/24/22 Bell Gil CNP [address] [place] [address] Nurse Practitioner Medical Oncology 05/18/22 Yas Tejeda NP [address] [place] [address] [email or web address] Nurse Practitioner Medical Oncology 07/09/22 02/27/25 documented as of this encounter Additional Source Comments The information contained in this document represents components of the legal health record. It is not the complete legal health record.[facility]
--- OUTSIDE RECORDS SUMMARY | 2025-07-17 21:21 | XMS_ITS | Encounter Summary ---
Author Organization [facility] Address [address] [place] [address] Care Team Providers Care Manager Of Financial Name Role Phone Unavailable Primary Care Provider Unavailabl e Encounter Details Date Type Department Care Team (Late st Contact Info) Description 07/11/2020 Lab Requisition [facility] Pathology & Laboratory Medicine - [facility] [address] [place] [address] Outr Resulting Lab, Provider Social History Tobacco [...] 30.0 - 100.0 ng/mL 07/12/2020 10:47 EST [facility] Comment: Vitamin D 25,OH Interpretive Ranges: Deficiency: <10.0 ng/mL Insufficiency: 10.0 - 30.0 ng/mL Sufficiency: 30.0 - 100.0 ng/mL Toxicity: >100.0 ng/mL Blood VENOUS BLOOD / Unknown 07/11/2020 11:42 EST 07/11/2020 21:37 EST us Provider Outr Resulting Lab CHEMISTRY & BLOOD GA S ORDERABLES Final Result Performing Organization Address City/State/[facility] Co de Phone Number [facility] [address] [place] [address] documented in this encounter Visit Diagnoses Not on filedocumented in this encounter
--- OUTSIDE RECORDS SUMMARY | 2025-07-17 21:21 | XMS_ITS | Encounter Summary ---
Author Organization [facility] Address [address] [facility] [address] [place] [address] Phone Care Team Providers Care Gauge Maker Apprentice Name Role Phone Martha Grissom SIGNAL ENGINEER Primary Care Provider [phone] Rod Forbes MD Unavailable [phone] Bell Gil MOWER SHARPENER Unavailable Yas Tejeda SIGNAL ENGINEER Unavailable [phone] Srikanth Landa MD Primary Care Provider [phone] Encounter Details Date Type Department Care Team (Late st Contact Info) Description 11/18/2023 Procedure Pass [facility], Ct Scan - [address] [address] Social History Tobacco Use Types Packs/Day Years [...] st Contact Info) Description 03/05/2025 Procedure Pass [address] [address] 03/05/2025 Procedure Pass [address] [address] 07/24/2025 1:45 PM EST Office Visit [facility] General Surgical Care [address] [place] [address] Sarah Bean MD [address] [place] [address], 2[address] [place] [address] 08/30/2025 2:30 PM EST Appointment [address] [address] Rod Forbes MD [address] [place] [address] [email or web address] 09/06/2025 1:40 PM EST Blood Draw [facility] [address] [place] [address] Rod Forbes MD [address] [place] [address] 09/06/2025 2:40 PM EST Office Visit [facility] at [address] [address] Rod Forbes MD [address] [place] [phone] documented as of this encounter Visit Diagnoses Not on filedocumented in this encounter Care Teams Gauge Maker Apprentice Relationship Specialty Start Date End Date Martha Grissom NP [address] [place] [address] PCP - General 04/24/22 06/12/24 Srikanth Landa MD [address] [place] [address] PCP - General Family Medicine 06/13/24 Rod Forbes MD [address] [place] [address] [email or web address] Primary Oncologist Medical Oncology 04/24/22 Bell Gil CNP [address] [place] [address] Nurse Practitioner Medical Oncology 05/18/22 Yas Tejeda NP [address] [place] [address] [email or web address] Nurse Practitioner Medical Oncology 07/09/22 02/27/25 documented as of this encounter Additional Source Comments The information contained in this document represents components of the legal health record. It is not the complete legal health record.[facility]
--- OUTSIDE RECORDS SUMMARY | 2025-07-17 21:21 | XMS_ITS | Encounter Summary ---
Author Organization [facility] Address [address] [facility] [address] [place] [address] Phone Care Team Providers Care Drum Sprayer Name Role Phone Martha Grissom PEARL GLUE OPERATOR Primary Care Provider Rod Forbes MD Unavailable [phone] Bell Gil CLOTHING SORTER Unavailable Yas Tejeda PEARL GLUE OPERATOR Unavailable [phone] Srikanth Landa MD Primary Care Provider [phone] Encounter Details Date Type Department Care Team (Late st Contact Info) Description 11/18/2023 Procedure Pass [facility], Ct Scan - [address] [address] Social History Tobacco Use Types Packs/Day Years [...] st Contact Info) Description 03/05/2025 Procedure Pass [address] [address] 03/05/2025 Procedure Pass [address] [address] 07/24/2025 1:45 PM EST Office Visit [facility] General Surgical Care [address] [place] [address] Sarah Bean MD [address] [place] [address], [address] [place] [address] 08/30/2025 2:30 PM EST Appointment [address] [address] Rod Forbes MD [address] [place] [address] [email or web address] 09/06/2025 1:40 PM EST Blood Draw [facility] [address] [place] [address] Rod Forbse MD [address] [place] [address] 09/06/2025 2:40 PM EST Office Visit [facility] at [address] [address] Rod Forbes MD [address] [place] [address] [phone] documented as of this encounter Visit Diagnoses Not on filedocumented in this encounter Care Teams Drum Sprayer Relationship Specialty Start Date End Date Martha Grissom NP [address] [place] [address] PCP - General 04/24/22 06/12/24 Srikanth Landa MD [address] [place] [address] PCP - General Family Medicine 06/13/24 Rod Forbes MD [address] [place] [address] [email or web address] Primary Oncologist Medical Oncology 04/24/22 Bell Gil CNP [address] [place] [address] Nurse Practitioner Medical Oncology 05/18/22 Yas Tejeda NP [address] [place] [address] [email or web address] Nurse Practitioner Medical Oncology 07/09/22 02/27/25 documented as of this encounter Additional Source Comments The information contained in this document represents components of the legal health record. It is not the complete legal health record.[facility]
--- OUTSIDE RECORDS SUMMARY | 2025-07-17 21:21 | XMS_ITS | Encounter Summary ---
Author Organization [facility] Address [address] [address] Phone Care Team Providers Care Mobile Application Architect Name Role Phone Martha Grissom NP Primary Care Provider [phone] Rod Forbes MD Unavailable [phone] Bell Gil BINDER ROLLER Unavailable Yas Tejeda IMPORT COORDINATOR Unavailable [phone] Srikanth Landa MD Primary Care Provider [phone] Reason for Referral * MRI/CAT Scan - Closed Specialty Diagnoses / Procedures Referred By Estella menezes Referred To Contact Radiology Diagnoses Abnormal LFTs Procedures MRI Cholangiopancreatography (MRCP) Leonila Valles NP [address] [place] [address] Phone: tel: fax: Referral ID Status Reason Start Date Expiration Date Visits Re quested Visits Authorized [id number] Closed 03/20/2024 03/20/2025 1 1 Encounter Details Date Type Department Care Team (Latest Contact Info) Description 03/20/2024 Transcribe Orders Virtual Department [address] [place] [address] Leonila Valles NP [address] [place] [address] Abnormal LFTs (Primary Dx) Social History Tobacco [...] st Contact Info) Description 03/05/2025 Procedure Pass [address] [address] 03/05/2025 Procedure Pass [address] [address] 07/24/2025 1:45 PM EST Office Visit [facility] General Surgical Care [address] [place] [address] Sarah Bean MD [address] [place] [address], 2[address] [place] [address] 08/30/2025 2:30 PM EST Appointment [address] [address] Rod Forbes MD [address] [place] [address] 09/06/2025 1:40 PM EST Blood Draw [facility] [address] [place] [address] Rod Forbes MD [address] [place] [address] [email or web address] 09/06/2025 2:40 PM EST Office Visit [facility] [address] [place] [address] Rod Forbes MD [address] [place] [address] documented as of this encounter Results * [...] attributed to biliary colic. us Leonila Valles IMPORT COORDINATOR IMG MR ABDOMEN Final Res ult documented in this encounter Visit Diagnoses Diagnosis Abnormal LFTs- Primary Abnormal LFTs documented in this encounter Care Teams Mobile Application Architect Relationship Specialty Start Date End Date Martha Grissom NP [address] [place] [address] PCP - General 04/24/22 06/12/24 Srikanth Landa MD [address] [place], [place] [address] PCP - General Family Medicine 06/13/24 Rod Forbes MD [address] [place] [address] [email or web address] Primary Oncologist Medical Oncology 04/24/22 Bell Gli CNP [address] [place] [address] Nurse Practitioner Medical Oncology 05/18/22 Yas Tejeda NP [address] [place] [address] Nurse Practitioner Medical Oncology 07/09/22 02/27/25 documented as of this encounter Additional Source Comments The information contained in this document represents components of the legal health record. It is not the complete legal health record.[facility]
--- OUTSIDE RECORDS SUMMARY | 2025-07-17 21:21 | XMS_ITS | Encounter Summary ---
Author Organization [facility] Address [address] [place] [address] Care Team Providers Care Liturgical Music Director Name Role Phone Unavailable Primary Care Provider Unavailabl e Encounter Details Date Type Department Care Team (Late st Contact Info) Description 12/19/2020 Lab Requisition [facility] Pathology & Laboratory Medicine - [facility] [address] [place] [address] Outr Resulting Lab, Provider Social History Tobacco [...] 19 - 88 pg/mL 12/20/2020 9:50 EDT [facility] Blood VENOUS BLOOD / Unknown 12/19/2020 14:04 EDT 12/19/2020 21:05 EDT us Provider Outr Resulting Lab CHEMISTRY & BLOOD GA S ORDERABLES Final Result [facility] [address] [place] [address] documented in this encounter Visit Diagnoses Not on filedocumented in this encounter
--- OUTSIDE RECORDS SUMMARY | 2025-07-17 21:21 | XMS_ITS | Encounter Summary ---
Author Organization [facility] Address [address] [facility] [address] [place] [address] Phone Care Team Providers Care Second Baker Name Role Phone Martha Grissom FLUTE POLISHER Primary Care Provider [phone] Rod Forbes MD Unavailable [phone] Bell Gil PACKING HOUSE SUPERVISOR Unavailable Yas Tejeda FLUTE POLISHER Unavailable [phone] Srikanth Landa MD Primary Care Provider [phone] Encounter Details Date Type Department Care Team (Late st Contact Info) Description 09/28/2023 Prep for Surgery [facility] General Surgical Care [address] [place] [address] Sarah Bean MD [address] [facility], 2nd [place] [address] [email or web address] Mass of anus (Primary Dx); [...] Contact Info) Description 03/05/2025 Procedure Pass [address] [address] 03/05/[address] [address] 07/24/2025 1:45 PM EST Office Visit [facility] General Surgical Care [address] [place] [address] Sarah Bean MD [address] [place] [address], [address] [place] [address] 08/30/2025 2:30 PM EST Appointment [address] [address] Rod Forbes MD [address] [place] [address] 09/06/2025 1:40 PM EST Blood Draw [facility] [address] [place] [address] Rod Forbes MD [address] [place] [phone] 09/06/2025 2:40 PM EST Office Visit 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, unspecified site documented in this encounter Care Teams Second Baker Relationship Specialty Start Date End Date Martha Grissom NP [address] [place], [place] [address] PCP - General 04/24/22 06/12/24 Srikanth Landa MD [address] [place] [address] PCP - General Family Medicine 06/13/24 Rod Forbes MD [address] [place] [address] [email or web address] Primary Oncologist Medical Oncology 04/24/22 Bell Gil CNP [address] [place] [address] [email or web address] Nurse Practitioner Medical Oncology 05/18/22 Yas Tejeda NP [address] [place] [address] [email or web address] Nurse Practitioner Medical Oncology 07/09/22 02/27/25 documented as of this encounter Additional Source Comments The information contained in this document represents components of the legal health record. It is not the complete legal health record.[facility]
--- OUTSIDE RECORDS SUMMARY | 2025-07-17 21:21 | XMS_ITS | Encounter Summary ---
Author Organization [facility] Address [address] [facility] [address] [place] [address] Phone Care Team Providers Care Group Leader Semiconductor Testing Name Role Phone Martha Grissom STONE BELT SANDER Primary Care Provider [phone] Rod Forbes MD Unavailable [phone] Bell Gil LEAD PHP DEVELOPER Unavailable Yas Tejeda STONE BELT SANDER Unavailable [phone] Srikanth Landa MD Primary Care Provider [phone] Reason for Visit * Reason Comments Rad Onc discharge Anal cancer Encounter Details Date Type Department Care Team ([facility] Contact Info) Description 07/22/2022 Documentation [facility] Rad Onc [address] [place] [address] Jessenia Schmitz, [place] [address] [place] [address] Rad Onc discharge (Anal cancer) Social History [...] (Late Contact Info) Description 03/05/2025 Procedure Pass [address] [address] 03/05/2025 Procedure Pass [address] [address] 07/24/2025 1:45 PM EST Office Visit [facility] General Surgical Care [address] [place] [address] Sarah Bean MD 15 [facility], 2nd [place] [address] 08/30/2025 2:30 PM EST Appointment [address] [address] Rod Forbes MD [address] [place] [address] 09/06/2025 1:40 PM EST Blood Draw [facility] [address] [place] [address] Rod Forbes MD [address] [place] [address] 09/06/2025 2:40 PM EST Office Visit [facility] at [address] [address] Rod Forbes MD [address] [place] [address] documented as of this encounter Visit Diagnoses Not on filedocumented in this encounter Care Teams Group Leader Semiconductor Testing Relationship Specialty Start Date End Date Martha Grissom NP [address] [place] [address] PCP - General 04/24/22 06/12/24 Srikanth Landa MD [address] [place] [address] PCP - General Family Medicine 06/13/24 Rod Forbes MD [address] [place] [address] Primary Oncologist Medical Oncology 04/24/22 Bell Gil CNP [address] [place] [address] Nurse Practitioner Medical Oncology 05/18/22 Yas Tejeda NP [address] [place] [address] [email or web address] Nurse Practitioner Medical Oncology 07/09/22 02/27/25 documented as of this encounter Additional Source Comments The information contained in this document represents components of the legal health record. It is not the complete legal health record.[facility]
--- OUTSIDE RECORDS SUMMARY | 2025-07-17 21:21 | XMS_ITS | Encounter Summary ---
Author Organization [facility] Address [address] [facility] [address] [place] [phone] Phone Care Team Providers Care Golf Sales Associate Name Role Phone Martha Grissom PITCH WORKER Primary Care Provider [phone] Rod Forbes MD Unavailable [phone] Bell Gil MEAL TEMPERER Unavailable Yas Tejeda PITCH WORKER Unavailable [phone] Srikanth Landa MD Primary Care Provider [phone] Encounter Details Date Type Department Care Team (Late st Contact Info) Description 03/20/2024 Procedure Pass [facility], [address] [address] Social History Tobacco Use Types Packs/Day Years [...] Contact Info) Description 03/05/2025 Procedure Pass [address] [address] 03/05/2025 Procedure Pass [address] [address] 07/24/2025 1:45 PM EST Office Visit [facility] General Surgical Care [address] [place] [phone] Sarah Bean MD [address] [place] [address], 2nd [place] [address] 08/30/2025 2:30 PM EST Appointment [address] [address] Rod Forbes MD [address] [place] [phone] 09/06/2025 1:40 PM EST Blood Draw [facility] [address] [place] [phone] Rod Forbes MD [address] [place] [phone] 09/06/2025 2:40 PM EST Office Visit [facility] at [address] [address] Rod Forbes MD [address] [place] [address] [phone] documented as of this encounter Visit Diagnoses Not on filedocumented in this encounter Care Teams Golf Sales Associate Relationship Specialty Start Date End Date Grissom, Summer, PITCH WORKER [address] [place] [address] PCP - General 04/24/22 06/12/24 Srikanth Landa MD [address] [place] [address] PCP - General Family Medicine 06/13/24 Rod Forbes MD [address] [place] [address] [email or web address] Primary Oncologist Medical Oncology 04/24/22 Bell Gil CNP [address] [place] [address] Nurse Practitioner Medical Oncology 05/18/22 Yas Tejeda NP [address] [place] [address] [email or web address] Nurse Practitioner Medical Oncology 07/09/22 02/27/25 documented as of this encounter Additional Source Comments The information contained in this document represents components of the legal health record. It is not the complete legal health record.[facility]
== END 2025-07-17 15:42 | disposition home or self-care (01) ==
LOC: HO.HMCFM 15:00
PROVIDERS: PCP Internal Medicine; Visit Provider Internal Medicine
DX: F33.1 Major depressive disorder, recurrent, moderate (principal); F41.9 Anxiety disorder, unspecified; I10 Essential (primary) hypertension; K21.9 Gastro-esophageal reflux disease without esophagitis

== ENCOUNTER → 2025-07-17 14:59 | Outpatient (BNVA) | payer MEDICARE, SELFPAY | PROVIDERS: PCP Internal Medicine; Visit Provider Internal Medicine | DX: F33.1 Major depressive disorder, recurrent, moderate (principal); F41.9 Anxiety disorder, unspecified; I10 Essential (primary) hypertension; K21.9 Gastro-esophageal reflux disease without esophagitis | CPT/HCPCS: 99212 ==